=== PATIENT | female | born 1985 | race Caucasian/White ===

== ENCOUNTER 2024-08-10 21:33 | Emergency (ER) | payer BC, SELFPAY ==
[2024-08-10 21:38] VITALS: BP 112/69; PULSE 81; TEMP 36.7; O2SAT 98; BMI 35.6
--- NOTE | 2024-08-10 21:46 | CT_ITS ---
The [address] [address] Patient Name: RAKESH CHERRY MRN: [id number] date: 1985 Sex: F Assigned Patient Location: ER Current Patient Location: ED.MAIN Accession/Order Number: [id number] Exam Date: 08/10/2024 21:59 Report Date: 08/10/2024 23:28 At the request of: SHELDON MARNI Procedure: CT abdomen pelvis w con CT ABDOMEN AND PELVIS WITH CONTRAST: INDICATION: RUQ abd pain. COMPARISON: None. TECHNIQUE:Multiple thin section transaxial slices were acquired through the abdomen and pelvis with intravenous contrast. Coronal and sagittal reconstructed images were reviewed. Oral contrastWas not administered. FINDINGS: LOWER CHEST: The lower chest is unremarkable. LIVER: The liver is unremarkable. GALLBLADDER AND BILIARY SYSTEM: No obvious ductal dilation. There are no calcified stones. There is pericholecystic fluid and edema. Acute cholecystitis cannot be excluded based on this exam. SPLEEN: The spleen is unremarkable. PANCREAS: The pancreas is unremarkable. ADRENAL GLANDS: The adrenal glands are unremarkable. KIDNEYS AND URETERS: There is no hydronephrosis of the kidneys.No obstructing urologic calcifications are present. VASCULATURE: No aneurysm of the abdominal aorta. PERITONEUM/RETROPERITONEUM: No free air or free fluid is present. LYMPH NODES: No suspicious lymphadenopathy. GASTROINTESTINAL TRACT: The bowel is normal in caliber.No acute inflammation is present in the bowel.The appendix is visualized and is not inflamed. BLADDER: The urinary bladder is unremarkable. REPRODUCTIVE SYSTEM: The uterus is absent. BODY WALL: There is a small fat-containing umbilical hernia and another small fat-containing supraumbilical hernia defect. BONES: Osseous structures are unremarkable. CT/CT abdomen pelvis w con IMPRESSION: Significant pericholecystic fluid/edema without calcified stones in the gallbladder. Further evaluation with right upper quadrant sonography is recommended. Electronically authenticated by: CAROLANN NAVARRO Date: 08/10/2024 23:28
--- NOTE | 2024-08-10 21:51 | ED.ABDPAIN1 ---
HPI - Abdominal Pain General Chief Complaint: Abdominal Pain Stated Complaint: ABDOMINAL PAIN Time Seen by Provider: 08/10/24 21:35 Source: patient Mode of arrival: walk-in Limitations: no limitations History of Present Illness HPI narrative: pt complains of 3-4 weeks of upper mid and right upper abdominal pain that comes and goes. She sometimes has associated nausea and vomited once. She admits to some increased flatulence and a gassy bloated feeling. Fatty foods seem to make the pain worse. She suspects gallbladder etiology. She had a hysterectomy. Related Data Allergies Allergy/AdvReac Type Severity Reaction Status Date / Time Sulfa (Sulfonamide Allergy Intermediate Rash Verified 08/10/24 21:41 Antibiotics) PFSH PFSH Social History Little interest or pleasure in doing things: not at all Feeling down, depressed, or hopeless: not at all Exam Narrative Exam Narrative: Nurses notes and vital signs reviewed and patient is not hypoxic. afebrile General: Well-appearing and in no apparent distress. Skin: Warm, dry, no pallor noted. No rash. Eye: Pupils are equal, round and EOMI. No scleral icterus. Cardiovascular: Regular Rate and Rhythm without murmur, gallop or rub. Respiratory: No accessory muscle use or respiratory distress. Lungs are clear to auscultation, no wheezing, rales or rhonchi Chest Wall: no tenderness Back: No CVA tenderness Musculoskeletal: normal ROM GI: Abdomen is soft, non-distended. Normal bowel sounds. No masses appreciated. RUQ tenderness to palpation. No rebound, guarding, or rigidity noted. Neurological: A&O x4. No cranial nerve dysfunction observed. No truncal ataxia. Moves all extremities. Sensation intact. Psychiatric: Cooperative and interactive. Normal mood and affect. Constitutional Vital Signs, click to edit/add: Last Vital Signs Temp 98.1 F 08/10/24 21:38 Pulse 81 08/10/24 21:38 Resp 18 08/10/24 21:38 BP 112/69 08/10/24 21:38 Pulse Ox 98 08/10/24 21:38 O2 Del Method Room Air 08/10/24 21:38 Course Vital Signs Vital signs: Vital Signs Temperature 98.1 F 08/10/24 21:38 Pulse Rate 81 08/10/24 21:38 Respiratory Rate 18 08/10/24 21:38 Blood Pressure 112/69 08/10/24 21:38 Pulse Oximetry 98 08/10/24 21:38 Oxygen Delivery Method Room Air 08/10/24 21:38 Temperature 98.1 F 08/10/24 21:38 Pulse Rate 81 08/10/24 21:38 Respiratory Rate 18 08/10/24 21:38 Blood Pressure 112/69 08/10/24 21:38 Pulse Oximetry 98 08/10/24 21:38 Oxygen Delivery Method Room Air 08/10/24 21:38 MDM - Abdominal Pain MDM Narrative Medical decision making narrative: The patient had a hysterectomy so we do not need to wait for before getting CT scan of the abdomen pelvis. Peripheral IV established and blood drawn and sent for testing. She was given IV Zofran and sublingual Levsin. She was sent for CT scan of the abdomen pelvis with IV contrast. WBC 14k and CT a/p reveals biliary edema. Normally, US tech is not available between 12pm Monday and 8am Monday for GB/RUQ US but an US tech had to be called in for another scenario = so we will obtain RUQ US for further evaluation. CMP & LFTs normal. US RUQ confirms the findings noted on CT - biliary sludge, GB wall edema. She also has numerous gallstones. CBD 8mm without sign of ductal impaction. She was ordered to receive IV Zosyn I discussed the findings with the patient and let her know she needs to be evaluated by a general surgeon. We do not have general surgery coverage at [facility] until 8am on 08/12/24. Call placed to [facility] to page the content creation manager general surgeon. I spoke with Dr Bunch - GS at [facility] - and he agreed to be a budget consultant on the case - asked me to page the hospitalist to discuss transfer and admission to their facility. @ [address] Crawford - hospitalist - at [facility] and after discussion, he accepted the patient's transfer to their facility for admission. The patient lives in [place] and so was agreeable to transfer to [facility] in [place]. Lab Data Attestation: I reviewed the patient's lab results. Labs: Lab Results 08/10/24 Range/Units 21:45 WBC 14.1 H (4.0-11.0) 10^3/uL RBC 4.37 (4.20-5.40) 10^6/uL Hgb 13.5 (12.0-16.0) g/dL Hct 39.6 (36.0-48.0) % MCV 90.6 (81.0-99.0) fL MCH 30.9 (26.7-34.0) pg MCHC 34.1 (29.9-35.2) g/dL RDW 11.5 (11.0-15.0) % Plt Count 292 (150-450) 10^3/uL MPV 9.3 L (9.5-13.5) fL Neut % (Auto) 70.2 (43.0-75.0) % Lymph % (Auto) 25.5 (20.5-60.0) % [place] % (Auto) 3.2 (1.7-12.0) % Eos % (Auto) 0.6 L (0.9-7.0) % Baso % (Auto) 0.3 (0.2-2.0) % Neut # (Auto) 9.9 H (1.4-6.5) 10^3/uL Lymph # (Auto) 3.6 (1.2-3.8) 10^3/uL [place] # (Auto) 0.5 (0.3-0.8) 10^3/uL Eos # (Auto) 0.1 (0.0-0.7) 10^3/uL Baso # (Auto) 0.0 (0.0-0.1) 10^3/uL Abs Immat Gran (auto) 0.03 (0.00-0.03) 10^3/uL Imm/Tot Granulo (auto) 0.2 (0.0-0.5) % Sodium 143 (136-145) mmol/L Potassium 3.6 (3.5-5.1) mmol/L Chloride 108 H (98-107) mmol/L Carbon Dioxide 25.0 (21.0-32.0) mmol/L Anion Gap 13.6 BUN 13.0 (7.0-18.0) mg/dL Creatinine 0.93 (0.55-1.02) mg/dL Est GFR ( Amer) >60 (>=60 mL/min/1.73m^2) Est GFR (Non-Af Amer) >60 (>=60 mL/min/1.73m^2) BUN/Creatinine Ratio 14.0 Glucose 136 H (74-106) mg/dL Calcium 8.7 (8.5-10.1) mg/dL Total Bilirubin 0.3 (0.2-1.0) mg/dL AST 98 H (15-37) U/L ALT 66 H (14-59) U/L Alkaline Phosphatase 103 (46-116) U/L Total Protein 6.3 L (6.4-8.2) g/dL Albumin 3.4 (3.4-5.0) g/dL Globulin 2.9 g/dL Albumin/Globulin Ratio 1.2 Lipase 41.0 (16.0-77.0) U/L Imaging Data CT scan - abdomen: Radiologist's impression: ITS Impressions Abdomen/Pelvis CT 08/10/24 21:46 IMPRESSION: Significant pericholecystic fluid/edema without calcified stones in the gallbladder. Further evaluation with right upper quadrant sonography is recommended. Electronically authenticated by: CAROLANN NAVARRO Date: 08/10/2024 23:28 Discharge Plan Discharge Chief Complaint: Abdominal Pain Clinical Impression: Acute calculous cholecystitis, Biliary colic Patient Disposition: [facility] Time of Disposition Decision: 00:27 Discharge Location: [facility]
[2024-08-10] MEDS: ONDANSETRON PF 4 MG/2 ML VIAL IV (21:55)
[2024-08-10] MEDS: HYOSCYAMINE SULFATE 0.125 MG TAB.SUBL SL (21:55)
[2024-08-10 21:58] LABS: Basophils Percent Auto 0.3 % (0.2-2.0); Eosinophils Absolute Auto 0.1 10^3/uL (0.0-0.7); Eosinophils Percent Auto 0.6 % (0.9-7.0); Hematocrit 39.6 % (36.0-48.0); Hemoglobin 13.5 g/dL (12.0-16.0); Immature Granulocytes Abs Auto 0.03 10^3/uL (0.00-0.03); Immature Granulocytes Pct Auto 0.2 % (0.0-0.5); Lymphocytes Absolute Auto 3.6 10^3/uL (1.2-3.8); Lymphocytes Percent Auto 25.5 % (20.5-60.0); Mean Corpuscular HGB Conc 34.1 g/dL (29.9-35.2); Mean Corpuscular Hemoglobin 30.9 pg (26.7-34.0); Mean Corpuscular Volume 90.6 fL (81.0-99.0); Mean Platelet Volume 9.3 fL (9.5-13.5); Monocytes Absolute Auto 0.5 10^3/uL (0.3-0.8); Monocytes Percent Auto 3.2 % (1.7-12.0); Neutrophils Absolute Auto 9.9 10^3/uL (1.4-6.5); Neutrophils Percent Auto 70.2 % (43.0-75.0); Platelet Count 292 10^3/uL (150-450); Red Blood Count 4.37 10^6/uL (4.20-5.40); Red Cell Distribution Width 11.5 % (11.0-15.0); White Blood Count 14.1 10^3/uL (4.0-11.0)
[2024-08-10 22:12] LABS: Alanine Aminotransferase 66 U/L (14-59); Albumin Globulin Ratio 1.2; Albumin Level 3.4 g/dL (3.4-5.0); Alkaline Phosphatase 103 U/L (46-116); Anion Gap 13.6; Aspartate Amino Transferase 98 U/L (15-37); Bilirubin Total 0.3 mg/dL (0.2-1.0); Calcium 8.7 mg/dL (8.5-10.1); Chloride 108 mmol/L (98-107); Estimated GFR (African America >60 (>=60 mL/min/1.73m^2); Estimated GFR (Non-African Ame >60 (>=60 mL/min/1.73m^2); Globulin 2.9 g/dL; Glucose 136 mg/dL (74-106); Potassium 3.6 mmol/L (3.5-5.1); Sodium 143 mmol/L (136-145); Total Protein 6.3 g/dL (6.4-8.2)
--- NOTE | 2024-08-10 23:33 | US_ITS ---
The [address] [address] Patient Name: RAKESH CHERRY MRN: [id number] date: 1985 Sex: F Assigned Patient Location: ER Current Patient Location: .[facility] Accession/Order Number: [id number] Exam Date: 08/10/2024 23:59 Report Date: 08/11/2024 02:24 At the request of: SHELDON MARIN Procedure: US right upper quadrant EXAM: US right upper quadrant HISTORY: 38 years old Female presenting with possible cholecystitis on CT scan, right upper quadrant pain. TECHNIQUE: Ultrasound of the right upper quadrant abdomen. COMPARISON: CT abdomen dated 08/10/2024 FINDINGS: Liver: Normal in size, contour and echogenicity. No intrahepatic biliary ductal dilatation. Gallbladder: There is cholelithiasis with abnormal gallbladder wall thickening and significant pericholecystic edema concerning for cholecystitis. The patient did not demonstrate a positive sonographic Martin's sign. Common bile duct: Normal in diameter, measuring 2.3 mm. Right kidney: Normal in size and echogenicity measuring 11.5 x 4.9 x 6.0 cm. No hydronephrosis or renal calculus. Miscellaneous:There is no free fluid in the right upper quadrant. The pancreas is obscured from bowel gas interference. US/US right upper quadrant IMPRESSION: Cholelithiasis with abnormal gallbladder wall thickening and pericholecystic edema concerning for acute cholecystitis. Electronically authenticated by: CAROLANN NAVARRO Date: 08/11/2024 02:24
[2024-08-11] MEDS: ONDANSETRON PF 4 MG/2 ML VIAL IV (00:54)
[2024-08-11] MEDS: HYDROMORPHONE HCL 1 MG/ML CARTRIDGE IVP (00:54)
[2024-08-11] MEDS: PIPERACILLIN SODIUM/TAZOBACTAM 3.375 GM in 0.9 % SODIUM CHLORIDE 50 ML IV (01:29)
== END 2024-08-11 02:36 | disposition short-term general hospital (02) ==
PROVIDERS: Emergency Provider Emergency Medicine; PCP Family Medicine
DX: K80.42 Calculus of bile duct with acute cholecystitis without obstruction (principal); Z90.710 Acquired absence of both cervix and uterus
CPT/HCPCS: 36415; 74177; 76705; 80053; 83690; 85025; 96365; 96375; 96376; 99285; J1171; J2405; J2543; Q9967

== ENCOUNTER 2025-04-09 07:15 | Outpatient (OUT) | payer BC, SELFPAY ==
--- OUTSIDE RECORDS SUMMARY | 2025-04-09 07:21 | XMS_ITS | CCD ---
Author Organization [facility] Care Team Providers Care Station Supervisor Name Role Phone KIMBERLEE ., DR MCDONALD Admitting Unavailable HOY ., DR MCDONALD Attending Unavailable HOY ., DR MCDONALD Primary Care Unavailable HOY ., DR MCDONALD Admitting Unavailable HOY ., DR MCDONALD Attending Unavailable HOY ., DR MCDONALD Primary Care Unavailable CINDYY ., DR MCDONALD Consulting Unavailable MD Harry Mohan Primary Care Provider [phone] MD Jeevan Hagan Jr Emergency Provider MD Harry Mohan Attending Provider [phone] DO Jeremiah Nunez Emergency Provider Unava MD Miguel Rahman Other Provider MD Miguel Barba Attending Provider DO Alysa Jiménez Attending Provider Miguel Barba Unavailable MD Harry Mohan Primary Care Provider [phone] MD Harry Mohan Attending Provider [phone] JAYCE Negron Attending Provider Harry Mohan MD Primary Care Provider [phone] Alysa Jiménez DO Unavailable Unavailable Primary Care Provider UnavailPARVEZ Barillas Admitting Unavailable PARVEZ VASQUEZ Attending Unavailable Unavailable Primary Care Provider Unavailtana e ALYSA JIMÉNEZ Attending Unavailable CHANDAN MICHAELS Attending Unavailable FAITH MARTINEZ Referring Unavailable JEREMIAH FORD Admitting Unavailable MATTHEW JOHNS Attending Unavailable Adelaide Negron Admitting Unavailable Adelaide Negron Attending Unavailable Harry Mohan Primary Care Unavailable Emil Noe Consulting Unavailable Candice Velasquez Admitting Unavailable Ed Whittington Attending Unavailable Harry Mohan Primary Care Unavailable Chandan Bunch Consulting Unavailable Parvez Kaey Unavailable Daromar, Obaydah M Admitting Unavailable Daromar, Obaydah M Attending Unavailable Chris Marshall Consulting Unavailable Harry Mohan Primary Care Unavailable Ozzie Acosta Consulting Unavailable Asaad, Imad Consulting Unavailable Gloria Albright Consulting Unavailable JOSE ASTUDILLO Attending Unavailable HARRY MOHAN Referring Unavailable Allergies Allergy Classification Reported Allergen(s) Allergy Type Date of Onset Reaction(s) Facility (13 sources) Sulfonamides (Antibiotic); Translations: [SULFA (SULFONAMIDE ANTIBIOTICS)] Allergy to substance 3 [facility] (5 sources) Sulfacetamide Drug Allergy 4 [facility] (5 sources) Sulfanilamide Allergy to substance 3 [facility] (1 source) ALLERGIES NOT ON FILE; Translations: [ALLERGIES NOT ON FILE] Propensity to adverse reactions (disorder) [facility] (1 source) Sulfacetamide Drug Allergy 4 [facility] Medications Current Medications Medication Drug Class(es) Dates Sig (Normalized) Sig (Original) Acetaminophen (2 sources) Start: 08-23-2024 take 1 tablet by mouth every four hours as needed acetaminophen (Tylenol) tablet 650 mg acetaminophen 325 mg / HYDROcodone bitartrate 5 mg oral tablet (4 sources) Opioid Agonist Start: 09-06-2023 take 1 tablet by mouth every six hours Hydrocodone-Acetami nophen Active 1 TAB PO Q6H 12 September 06, 2023 acetaminophen 325 mg / oxyCODONE hydrochloride 5 mg oral tablet (1 source) Opioid Agonist Start: 08-23-2024 take 1 tablet by mouth every four hours as needed 1 tablet, oral, Every 4 hours PRN, pain moderate (4-6), second line, Starting on Mon08/23/24 at 1458, Recovery (only), When able to take oral medications., If ordered PRN for pain, nurse is permitted to administer this medication for higher pain scores based on patient preference? Yes albuterol 0.83 mg/ml inhalation solution (6 sources) beta2-Adrenergic Agonist Start: 08-23-2024 2.5 mg, nebulization, Once as needed, wheezing, Starting on Mon08/23/24 at 1458, For 1 dose, Recovery (only) Start: 08-23-2023 Albuterol Sulf ate Active 2 INH INHALATION Q4H August 23, 2023 12:00am calcium chloride 0.0014 meq/ml / potassium chloride 0.004 meq/ml / sodium chloride 0.103 meq/ml / sodium lactate 0.028 meq/ml injectable solution (1 source) Start: 08-23-2024 End: 08-24-2024 take 100 mL intravenously every hour 100 mL/hr, intravenous, Continuous, Starting on Mon08/23/24 at 1515, For 1 day, Recovery (only) diphenhydrAMINE (2 sources) Histamine-1 Receptor Antagonist Start: 08-23-2024 12.5 mg, intravenous, Once as needed, itching, allergic reaction, Starting on Mon08/23/24 at 1458, For 1 dose, Recovery (only) 1 ml fentaNYL 0.05 mg/ml injection (1 source) Opioid Agonist Start: 08-23-2024 50 mcg, intravenous, Every 5 min PRN, pain moderate (4-6), first line, Starting on Mon08/23/24 at 1458, Recovery (only), Max total of 200 micrograms regardless of dose., If ordered PRN for pain, nurse is permitted to administer this medication for higher pain scores based on patient preference? Yes 1 ml hydrALAZINE hydrochloride 20 mg/ml injection (1 source) Arteriolar Vasodilator Start: 08-23-2024 5 mg, intravenous, Administer over 2 Minutes, Every 30 min PRN, systolic blood pressure greater than 180 mmHg and heart rate less than 60 BPM, Starting on Mon08/23/24 at 1458, For 2 doses, Recovery (only) 0.5 ml HYDROmorphone hydrochloride 1 mg/ml prefilled syringe (3 sources) Opioid Agonist Start: 08-23-2024 0.5 mg, intravenous, Every 5 min PRN, pain severe (7-10), first line, Starting on Mon08/23/24 at 1458, Recovery (only), Max total of 4 mg regardless of dose. Start: 08-23-2024 0.2 mg, intrav enous, Every 5 min PRN, pain moderate (4-6), first line, Starting on Mon08/23/24 at 1458, Recovery (only), Max total of 4 mg regardless of dose. ibuprofen 600 mg oral tablet (12 sources) Nonsteroidal Anti-inflammatory Drug Start: 09-06-2023 Ibuprofen Active 600 MG PO Every 6 hours September 06, 2023 12:00am do not exceed 4 doses in a 24 hour period Start: 07-18-2023 take 600 mg by mouth every eight hours Ibuprofen Active 600 MG PO Q8H July 18, 2023 12:00am labetalol hydrochloride 5 mg/ml injectable solution (2 sources) beta-Adrenergic Jonas Start: 08-23-2024 5 mg, intravenous, Administer over 1 Minutes, Once as needed, systolic blood pressure greater than 180 mmHg, dystolic blood pressure greater than 100 mmHg and heart rate greater than 60 BPM, Starting on Mon08/23/24 at 1458, For 1 dose, Recovery (only) melatonin 3 mg oral tablet (1 source) Start: 08-23-2024 Metoclopramide (1 source) Dopamine-2 Receptor Antagonist Start: 08-23-2024 take 1 tablet by mouth every six hours as needed metoclopramide (Reglan) tablet 10 mg 1 ml morphine sulfate 4 mg/ml prefilled syringe (2 sources) Opioid Agonist Start: 08-23-2024 take 4 mg intravenously every four hours as needed Start: 08-23-2024 take 2 mg intravenously every four hours as needed 2 ml ondansetron 2 mg/ml injection (2 sources) Serotonin-3 Receptor Antagonist Start: 08-23-2024 4 mg, intravenous, Once as needed, nausea/vomiting, first line, Starting on Mon08/23/24 at 1458, For 1 dose, Recovery (only), When administering via IV Push, administer over 3-5 minutes. ondansetron ODT (Zofran-ODT) disintegrating tablet 4 mg (1 source) Start: 08-23-2024 take 1 tablet by mouth every eight hours as needed ondansetron ODT (Zofran-ODT) disintegrating tablet 4 mg oxyCODONE hydrochloride 5 mg oral tablet (2 sources) Opioid Agonist Start: 08-23-2024 take 1 tablet by mouth every four hours as needed 5 mg, oral, Every 4 hours PRN, pain mild (1-3), first line, Starting on Mon08/23/24 at 1458, Recovery (only), When able to take oral medications., If ordered PRN for pain, nurse is permitted to administer this medication for higher pain scores based on patient preference? Yes oxygen (O2) therapy (2 sources) Start: 08-23-2024 inhalation, Continuous PRN - O2/gases, other, Starting on Mon08/23/24 at 1458, Recovery (only), Device: Nasal Cannula, Rate in liters per minute: Other, Custom Value: 1-6 LPM, Keep O2 Sat Above: 92% pantoprazole (1 source) Proton Pump Inhibitor Start: 08-23-2024 pantoprazole (ProtoNix) EC tablet 40 mg polyethylene glycol 3350 [id number] mg powder for oral solution (1 source) Osmotic Laxative Start: 08-23-2024 take 17 g by mouth every twenty-four hours as needed promethazine (Phenergan) 6.25 mg in sodium chloride 0.9% 50 mL IV (1 source) Start: 08-23-2024 6.25 mg, intravenous, Administer over 15 Minutes, Once as needed, Nausea/vomiting, second line, Starting on Mon08/23/24 at 1458, For 1 dose, Recovery (only) Completed/Discontinued Medications Medication Drug Class(es) Dates Sig (Normalized) Sig (Original) amoxicillin 875 mg / clavulanate 125 mg oral tablet (9 sources) Penicillin-class Antibacterial Start: 07-18-2023 End: 07-18-2023 Amoxicillin-Pot Clavulanate Discontinued TAB TABLET July 18, 2023 12:00am July 18, 2023 4:02am benzonatate 100 mg oral capsule (9 sources) Non-narcotic Antitussive Start: 07-18-2023 End: 07-26-2023 take 100 mg by mouth three times daily Benzonatate Discontinued 100 MG PO Three times daily July 18, 2023 12:00am July 26, 2023 4:53pm betamethasone 0.5 mg/ml topical cream (14 sources) Corticosteroid Start: 07-18-2023 End: 07-18-2023 Betamethasone Dipropionate Discontinued APPLIC TOPICAL July 18, 2023 12:00am July 18, 2023 4:02am Start: 06-30-2023 betamethasone dipropionate 0.05 % cream Indications: Other atopic dermatitis Apply to affected areas twice a day when flared 45 g 11 06/30/2023 Active cefdinir 300 mg oral capsule (6 sources) Cephalosporin Antibacterial Start: 07-26-2023 End: 08-23-2023 take 600 mg by mouth once daily Cefdinir Discontinued 600 MG PO Daily July 26, 2023 12:00am August 23, 2023 9:08am levoFLOXacin 750 mg oral tablet (9 sources) Quinolone Antimicrobial Start: 07-18-2023 End: 08-23-2023 take 750 mg by mouth once daily Levofloxacin Discontinued 750 MG PO Daily 7 July 18, 2023 12:00am August 23, 2023 9:08am 1000 ml sodium chloride 9 mg/ml injection (1 source) Start: 08-23-2024 End: 08-23-2024 take 100 mL intravenously every hour 100 mL/hr, intravenous, Continuous, Starting on Mon08/23/24 at 0100, For 10 hours valACYclovir 1000 mg oral tablet (14 sources) Herpesvirus Nucleoside Analog DNA Polymerase Inhibitor, Herpes Simplex Virus Nucleoside Analog DNA Polymerase Inhibitor, Herpes Zoster Virus Nucleoside Analog DNA Polymerase Inhibitor Start: 07-18-2023 End: 07-18-2023 Valacyclovir Discontinued MG TABLET July 18, 2023 12:00am July 18, 2023 4:02am Start: 06-30-2023 valACYclovir ( Valtrex) 1 g tablet Indications: Herpesviral vesicular dermatitis Take 2 tablets twice a day x 1 day at first start of outbreak 4 tablet 5 06/30/2023 Active Problems Active Problems Problem Classification Problem Date Documented Date Episodic/Chronic Abdominal hernia (4 sources) Umbilical hernia; Translations: [Umbilical hernia without obstruction or gangrene] Onset: 08-26-2024 08-26-2024 Episodic Abdominal pain (13 sources) Nonspecific abdominal pain; Translations: [Unspecified abdominal pain] Onset: 08-23-2024 07-18-2023 Episodic Biliary tract disease (8 sources) Obstruction of biliary tree; Translations: [Obstruction of bile duct] Onset: 08-21-2024 4 Chronic Biliary tract disease (6 sources) Calculus of gallbladder and bile duct with acute and chronic cholecystitis; Translations: [Calculus of gallbladder and bile duct with acute and chronic cholecystitis without obstruction] Onset: 08-11-2024 08-26-2024 Episodic Chronic obstructive pulmonary disease and bronchiectasis (6 sources) Bronchitis; Translations: [Bronchitis, not specified as acute or chronic] 08-03-2023 Episodic Nonspecific chest pain (6 sources) Chest pain; Translations: [Chest pain, unspecified] 07-26-2023 Episodic Other liver diseases (2 sources) Enzyme level - finding; Translations: [Transaminitis] Onset: 08-23-2024 08-23-2024 Episodic Other liver diseases (1 source) Abnormal levels of other serum enzymes; Translations: [Abnormal levels of other serum enzymes] Onset: 08-21-2024 Episodic Other liver diseases (1 source) Unspecified jaundice; Translations: [Unspecified jaundice] Onset: 08-21-2024 Episodic Other nervous system disorders (3 sources) Acute postoperative pain; Translations: [Other acute postprocedural pain] 09-06-2023 Episodic Other nervous system disorders (1 source) Other acute postprocedural pain; Translations: [Other acute postprocedural pain] Onset: 08-11-2024 Episodic Other non-traumatic joint disorders (2 sources) Pain in elbow; Translations: [Pain in left elbow] 10-27-2023 Episodic Other non-traumatic joint disorders (2 sources) Effusion of joint of left elbow; Translations: [Effusion, left elbow] 10-27-2023 Episodic Other non-traumatic joint disorders (1 source) Effusion, left elbow; Translations: [Effusion of joint, upper arm] 10-27-2023 Episodic Other screening for suspected conditions (not mental disorders or infectious disease) (1 source) Tomography - chest abnormal; Translations: [Abnormal findings on diagnostic imaging of other specified body structures] Chronic Other screening for suspected conditions (not mental disorders or infectious disease) (2 sources) Other specified abnormal findings of blood chemistry; Translations: [Other specified abnormal findings of blood chemistry] Onset: 01-22-2025 Episodic Pleurisy; pneumothorax; pulmonary collapse (6 sources) Pleurisy; Translations: [Pleurisy] 08-03-2023 Episodic Pneumonia (except that caused by tuberculosis or sexually transmitted disease) (9 sources) Pneumonia; Translations: [Pneumonia, unspecified organism] 07-18-2023 Episodic Residual codes; unclassified (1 source) Acquired absence of other specified parts of digestive tract; Translations: [Acquired absence of other specified parts of digestive tract] Onset: 08-21-2024 Episodic Unclassified (1 source) Pain in left elbow; Translations: [Pain in left elbow] Onset: 10-27-2023 Past or Other Problems Problem Classification Problem Date Documented Da te Episodic/Chronic Unclassified (1 source) Cholodocolithiasis Onset: 08-22-2024 Results Test Name Value Interpretation Reference Range Facility Office Visiton 01-22-2025 Follow-up visit [id number] Janice Cherry 1985 F Date Provider Department Center 01/22/2025 Demetrio-JOSE ASTUDILLO [facility] Family History Problem Relation Age of Onset Thyroid disease Mother Multiple sclerosis Brother Family Status - Relation Status Age at Mother Unknown Brother Level of Service:80396 [place] OFFICE/OUTPATIENT NEW MODERATE MDM 45 MINUTES (GC) 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 [Other] Abdominal Pain [754839] - RUQ Normal [facility] CBC W Auto Differential pane l (Bld)on 08-24-2024 Basophils (Bld) [#/Vol] 0.06 10*3/uL [facility] Basophils/100 WBC (Bld) 0.5 % 0.0 - 2.0 % [facility] Eosinophils (Bld) [#/Vol] 0.42 10*3/uL [facility] Eosinophils/100 WBC (Bld) 3.4 % 0.0 - 6.0 % [facility] Erythrocyte distribution width (RBC) [Ratio] 12 % 11.5 - 14.5 % [facility] Hematocrit (Bld) [Volume fraction] 39.4 % 36.0 - 46.0 % [facility] Hemoglobin (Bld) [Mass/Vol] 12.7 g/dL 12.0 - 16.0 g/dL [facility] Immature granulocytes (Bld) [#/Vol] 0.03 10*3/uL [facility] Immature granulocytes/100 WBC (Bld) 0.2 % 0.0 - 0.9 % [facility] Comment on above: Immature Granulocyte Count (IG) includes promyelocytes, myelocytes and metamyelocytes but does not include bands. Percent differential counts (%) should be interpreted in the context of the absolute cell counts (cells/UL). Interpretation and review of laboratory results Abnormal [facility] Lymphocytes (Bld) [#/Vol] 2.94 10*3/uL [facility] Lymphocytes/100 WBC (Bld) 23.6 % 13.0 - 44.0 % [facility] MCH (RBC) [Entitic mass] 29.5 pg 26.0 - 34.0 pg [facility] MCHC (RBC) [Mass/Vol] 32.2 g/dL 32.0 - 36.0 g/dL [facility] MCV (RBC) [Entitic vol] 92 fL 80 - 100 fL [facility] Monocytes (Bld) [#/Vol] 0.74 10*3/uL [facility] Monocytes/100 WBC (Bld) 5.9 % 2.0 - 10.0 % [facility] Neutrophils (Bld) [#/Vol] 8.25 10*3/uL High [facility] Comment on above: Percent differential counts (%) should be interpreted in the context of the absolute cell counts (cells/uL). Neutrophils/100 WBC (Bld) 66.4 % 40.0 - 80.0 % [facility] Nucleated RBC/100 WBC (Bld) [Ratio] 0 % [facility] Platelets (Bld) [#/Vol] 323 10*3/uL [facility] RBC (Bld) [#/Vol] 4.3 10*6/uL [facility] WBC (Bld) [#/Vol] 12.4 10*3/uL [facility] Basophils (Bld) [#/Vol] 0.06 x10*3/uL Normal 0.00-0.10 [facility] Comment on above: Performed By: #### 5 7021-8 #### BALWINDER SINGH ([id number]) [facility] [place] [address] [place] [address] Basophils/100 WBC (Bld) 0.5 % Normal 0.0-2.0 [facility] Comment on above: Performed By: #### 5 7021-8 #### BALWINDER SINGH ([id number]) [facility] ([facility] [address] [place] [address] Eosinophils (Bld) [#/Vol] 0.42 x10*3/uL Normal 0.00-0.70 [facility] Comment on above: Performed By: #### 5 7021-8 #### BALWINDER SINGH ([id number]) [facility] ([facility] [place] [address] [place] [address] Eosinophils/100 WBC (Bld) 3.4 % Normal 0.0-6.0 [facility] Comment on above: Performed By: #### 5 7021-8 #### BALWINDER SINGH ([id number]) [facility] ([facility] [place] [place] [id number] [place] [address] Erythrocyte distribution width (RBC) [Ratio] 12.0 % Normal 11.5-14.5 [facility] Comment on above: Performed By: #### 5 7021-8 #### BALWINDER SINGH ([id number]) [facility] ([facility] [place] [address] [place] [address] Hematocrit (Bld) [Volume fraction] 39.4 % Normal 36.0-46.0 [facility] Comment on above: Performed By: #### 5 7021-8 #### BALWINDER SINGH ([id number]) [facility] ([facility] [place] [address] [place] [address] Hemoglobin (Bld) [Mass/Vol] 12.7 g/dL Normal 12.0-16.0 [facility] Comment on above: Performed By: #### 5 7021-8 #### BALWINDER SINGH (45935) [facility] ([facility] [place] [place] [address] [place] [address] Immature granulocytes (Bld) [#/Vol] 0.03 x10*3/uL Normal 0.00-0.70 [facility] Comment on above: Performed By: #### 5 7021-8 #### BALWINDER SINGH ([id number]) [facility] ([facility] [address] [place] [address] Immature granulocytes/100 WBC (Bld) 0.2 % Normal 0.0-0.9 [facility] Comment on above: Result Comment: Caryl ture Granulocyte Count (IG) includes promyelocytes, myelocytes and metamyelocytes but does not include bands. Percent differential counts (%) should be interpreted in the context of the absolute cell counts (cells/UL). Performed By: #### 5 7021-8 #### BALWINDER SINGH ([id number]) [facility] ([facility] [place] [place] [id number] [place] [address] Lymphocytes (Bld) [#/Vol] 2.94 x10*3/uL Normal 1.20-4.80 [facility] Comment on above: Performed By: #### 5 7021-8 #### BALWINDER SINGH ([id number]) [facility] [place] [place] [place] [address] [place] [address] Lymphocytes/100 WBC (Bld) 23.6 % Normal 13.0-44.0 [facility] Comment on above: Performed By: #### 5 7021-8 #### BALWINDER SINGH ([id number]) [facility] ([facility] [place] [place] [address] [place] [address] MCH (RBC) [Entitic mass] 29.5 pg Normal 26.0-34.0 [facility] Comment on above: Performed By: #### 5 7021-8 #### BALWINDER SINGH ([id number]) [facility] ([facility] [place] [place] [address] [place] [address] MCHC (RBC) [Mass/Vol] 32.2 g/dL Normal 32.0-36.0 [facility] Comment on above: Performed By: #### 5 7021-8 #### BALWINDER SINGH ([id number]) [facility] ([facility] [place] [address] [place] [address] MCV (RBC) [Entitic vol] 92 fL Normal 80-100 [facility] Comment on above: Performed By: #### 5 7021-8 #### BALWINDER SINGH ([id number]) [facility] ([facility] [place] [address] [place] [address] Monocytes (Bld) [#/Vol] 0.74 x10*3/uL Normal 0.10-1.00 [facility] Comment on above: Performed By: #### 5 7021-8 #### BALWINDER SINGH ([id number]) [facility] ([facility] [place] [address] [place] [address] Monocytes/100 WBC (Bld) 5.9 % Normal 2.0-10.0 [facility] Comment on above: Performed By: #### 5 7021-8 #### BALWINDER SINGH ([id number]) [facility] ([facility] [place] [address] [place] [address] Neutrophils (Bld) [#/Vol] 8.25 x10*3/uL High 1.20-7.70 [facility] Comment on above: Result Comment: Perc ent differential counts (%) should be interpreted in the context of the absolute cell counts (cells/uL). Performed By: #### 5 7021-8 #### BALWINDER SINGH (74093) [facility] ([facility] [place] [address] [place] [address] Neutrophils/100 WBC (Bld) 66.4 % Normal 40.0-80.0 [facility] Comment on above: Performed By: #### 5 7021-8 #### BALWINDER SINGH ([id number]) [facility] ([facility] [place] [place] [address] [place] [address] Nucleated RBC/100 WBC (Bld) [Ratio] 0.0 /100 WBCs Normal 0.0-0.0 [facility] Comment on above: Performed By: #### 5 7021-8 #### BALWINDER SINGH ([id number]) [facility] ([facility] [place] [place] [address] [place] [address] Platelets (Bld) [#/Vol] 323 x10*3/uL Normal 150-450 [facility] Comment on above: Performed By: #### 5 7021-8 #### BALWINDER SINGH ([id number]) [facility] ([facility] [place] [place] [address] [place] [address] RBC (Bld) [#/Vol] 4.30 x10*6/uL Normal 4.00-5.20 [facility] Comment on above: Performed By: #### 5 7021-8 #### BALWINDER SINGH ([id number]) [facility] ([facility] [place] [place] [address] [place] [address] WBC (Bld) [#/Vol] 12.4 x10*3/uL High 4.4-11.3 [facility] Comment on above: Performed By: #### 5 7021-8 #### BALWINDER SINGH ([id number]) [facility] ([facility] [place] [place] [address] [place] [address] Comprehensive metabolic 2000 panelon 08-24-2024 Albumin BCP dye [Mass/Vol] 3.9 g/dL 3.4 - 5.0 g/dL [facility] ALP [Catalytic activity/Vol] 167 U/L High 33 - 110 U/L [facility] ALT With P-5'-P [Catalytic activity/Vol] 140 U/L High 7 - 45 U/L [facility] Comment on above: Patients treated wit h Sulfasalazine may generate falsely decreased results for ALT. Anion gap [Moles/Vol] 14 mmol/L 10 - 2 0 mmol/L [facility] AST With P-5'-P [Catalytic activity/Vol] 24 U/L 9 - 39 U/L [facility] Bilirubin [Mass/Vol] 0.8 mg/dL 0.0 - 1 .2 mg/dL [facility] Calcium [Mass/Vol] 9.3 mg/dL 8.6 - 10. 3 mg/dL [facility] Chloride [Moles/Vol] 104 mmol/L 98 - 10 7 mmol/L [facility] [facility] CO2 [Moles/Vol] 25 mmol/L 21 - 32 mmol/L [facility] Creatinine [Mass/Vol] 0.63 mg/dL 0.50 - 1.05 mg/dL [facility] eGFR - PINF [facility] Comment on above: Calculations of luis miguel mated GFR are performed using the 2020 CKD-EPI Study Refit equation without the race variable for the IDMS-Traceable creatinine methods. https://jasn.asnjournals.org/content/early//ASN.78586 35874 Glucose [Mass/Vol] 90 mg/dL 74 - 99 mg/dL [facility] Interpretation and review of laboratory results Abnormal [facility] Potassium [Moles/Vol] 4.2 mmol/L 3.5 - 5.3 mmol/L [facility] Protein [Mass/Vol] 6.4 g/dL 6.4 - 8.2 g/dL [facility] Sodium [Moles/Vol] 139 mmol/L 136 - 145 mmol/L [facility] Urea nitrogen [Mass/Vol] 7 mg/dL 6 - 23 mg/dL [facility] Albumin BCP dye [Mass/Vol] 3.9 g/dL Normal 3.4-5.0 [facility] Comment on above: Performed By: #### 2 4323-8 #### BALWINDER SINGH ([id number]) [facility] [place] [address] [place] [address] ALP [Catalytic activity/Vol] 167 U/L High 33-110 [facility] Comment on above: Performed By: #### 2 4323-8 #### BALWINDER SINGH (38024) [facility] ([facility] [address] [place] [address] ALT With P-5'-P [Catalytic activity/Vol] 140 U/L High 7-45 [facility] Comment on above: Result Comment: Meena ents treated with Sulfasalazine may generate falsely decreased results for ALT. Performed By: #### 2 4323-8 #### BALWINDER SINGH ([id number]) [facility] [place] [address] [facility] [place] [address] Anion gap [Moles/Vol] 14 mmol/L Normal 10-20 [facility] Comment on above: Performed By: #### 2 4323-8 #### BALWINDER SINGH (79815) [facility] [place] [address] [facility] [address] AST With P-5'-P [Catalytic activity/Vol] 24 U/L Normal 9-39 [facility] Comment on above: Performed By: #### 2 4323-8 #### BALWINDER SINGH (11625) [facility] [place] [address] [place] [address] Bilirubin [Mass/Vol] 0.8 mg/dL Normal 0.0-1.2 [facility] Comment on above: Performed By: #### 2 4323-8 #### BALWINDER SINGH (54512) [facility] [place] [address] [place] [address] Calcium [Mass/Vol] 9.3 mg/dL Normal 8.6-10.3 [facility] Comment on above: Performed By: #### 2 4323-8 #### BALWINDER SINGH (55361) [facility] [place] [address] [place] [address] Chloride [Moles/Vol] 104 mmol/L Normal 98-107 [facility] Comment on above: Performed By: #### 2 4323-8 #### BALWINDER SINGH (54003) [facility] [place] [address] [place] [address] CO2 [Moles/Vol] 25 mmol/L Normal 21-[address] [facility] Comment on above: Performed By: #### 2 4323-8 #### BALWINDER SINGH (90002) [facility] [place] [address] [place] [address] Creatinine [Mass/Vol] 0.63 mg/dL Normal 0.50-1.05 [facility] Comment on above: Performed By: #### 2 4323-8 #### BALWINDER SINGH (50994) [facility] ([facility] [id number] [place] [address] GFR/1.73 sq M.predicted MDRD (S/P/Bld) [Vol rate/Area] mL/min/{1.73_m2} Normal >60 [facility] Comment on above: Result Comment: Calc ulations of estimated GFR are performed using the 2020 CKD-EPI Study Refit equation without the race variable for the IDMS-Traceable creatinine methods. https://jasn.asnjournals.org/content/early//ASN.62576 70642 Performed By: #### 2 4323-8 #### BALWINDER SINGH (46831) [facility] ([facility] [id number] [place] [address] Glucose [Mass/Vol] 90 mg/dL Normal 74-99 [facility] Comment on above: Performed By: #### 2 4323-8 #### BALWINDER SINGH (49364) [facility] ([facility] [id number] [place] [address] Potassium [Moles/Vol] 4.2 mmol/L Normal 3.5-5.3 [facility] Comment on above: Performed By: #### 2 4323-8 #### BALWINDER SINGH (75486) [facility] [place] [address] [place] [address] Protein [Mass/Vol] 6.4 g/dL Normal 6.4-8.2 [facility] Comment on above: Performed By: #### 2 4323-8 #### BALWINDER SINGH (14311) [facility] [place] [address] [place] [address] Sodium [Moles/Vol] 139 mmol/L Normal 136-145 [facility] Comment on above: Performed By: #### 2 4323-8 #### BALWINDER SINGH (26402) [facility] [place] [address] [place] [address] Urea nitrogen [Mass/Vol] 7 mg/dL Normal 6-23 [facility] Comment on above: Performed By: #### 2 4323-8 #### BALWINDER SINGH (68460) [facility] [place] [address] [place] [address] ENDOSCOPIC ULTRASOUND (UPPER )on 08-24-2024 ENDOSCOPIC ULTRASOUND (UPPER) Table formatting from the original result was not included. Impression EGD: Endoscopic views of the esophagus and duodenum appeared normal. Mild abnormal mucosa in the antrum, consistent with gastritis; performed cold forceps biopsy for evaluation of h. Pylori EUS: The parenchyma of the liver appeared normal. The parenchyma was visualized in the left lobe and right lobe of the liver. The hepatic ducts appeared normal. The gallbladder was not visualized. The parenchyma was visualized in the entire pancreas and appeared to have a normal salt and pepper appearance. The pancreatic duct appeared normal. The bile duct appeared normal. There was no evidence of choledocholithiasis Findings Endoscopic views of the esophagus and duodenum appeared normal. Mild, patchy abnormal mucosa in the antrum, consistent with gastritis; performed cold forceps biopsy The parenchyma of the liver appeared normal. The parenchyma was visualized in the left lobe and right lobe of the liver. The hepatic ducts appeared normal. The gallbladder was not visualized. The parenchyma was visualized in the entire pancreas and appeared to have a normal salt and pepper appearance. The pancreatic duct appeared normal and measured 2 mm at the head, 1 mm at the body and 1 mm at the tail. The bile duct appeared normal and had no dilation, stricture, stones, plugs, sludge or wall thickening. The bile duct measured 3 mm at the distal end, 4 mm at the middle and 4 mm at the proximal end. Recommendation No etiology for abdominal pain identfied No evidence of biliary stones Explore hepatocellular etiology of elevated LFTs Indication Biliary obstruction ([facility]) Staff Staff Role Mau Kruse MD Proceduralist Medications See Anesthesia Record. Preprocedure A history and physical has been performed, and patient medication allergies have been reviewed. The patient's tolerance of previous anesthesia has been reviewed. The risks and benefits of the procedure and the sedation options and risks were discussed with the patient. All questions were answered and informed consent obtained. Details of the Procedure The patient underwent monitored anesthesia care, which was administered by an anesthesia professional. The patient's blood pressure, heart rate, level of consciousness, oxygen, respirations, ECG and ETCO2 were monitored throughout the procedure. The linear scope was introduced through the mouth and advanced to the second part of the duodenum. The patient experienced no blood loss. The procedure was not difficult. The patient tolerated the procedure well. There were no apparent adverse events. Events Procedure Events Event Event Time ENDO SCOPE IN TIME 08/23/2024 2:44 PM ENDO SCOPE OUT TIME 08/23/2024 2:48 PM ENDO SCOPE IN TIME 08/23/2024 2:49 PM ENDO SCOPE OUT TIME 08/23/2024 2:55 PM Specimens ID Type Source Tests Collected by Time 1 : random stomach r/o hpylori Tissue STOMACH ANTRUM BIOPSY SURGICAL PATHOLOGY EXAM Senthil Isha 08/23/2024 1446 Procedure Location [address] [address] Referring Provider Mau Kruse MD Procedure Provider Mau Kruse MD [facility] Endoscopic Ultrasound (Upper )on 08-24-2024 Table formatting fro m the original result was not included. Impression EGD: Endoscopic views of the esophagus and duodenum appeared normal. Mild abnormal mucosa in the antrum, consistent with gastritis; performed cold forceps biopsy for evaluation of h. Pylori EUS: The parenchyma of the liver appeared normal. The parenchyma was visualized in the left lobe and right lobe of the liver. The hepatic ducts appeared normal. The gallbladder was not visualized. The parenchyma was visualized in the entire pancreas and appeared to have a normal salt and pepper appearance. The pancreatic duct appeared normal. The bile duct appeared normal. There was no evidence of choledocholithiasis Findings Endoscopic views of the esophagus and duodenum appeared normal. Mild, patchy abnormal mucosa in the antrum, consistent with gastritis; performed cold forceps biopsy The parenchyma of the liver appeared normal. The parenchyma was visualized in the left lobe and right lobe of the liver. The hepatic ducts appeared normal. The gallbladder was not visualized. The parenchyma was visualized in the entire pancreas and appeared to have a normal salt and pepper appearance. The pancreatic duct appeared normal and measured 2 mm at the head, 1 mm at the body and 1 mm at the tail. The bile duct appeared normal and had no dilation, stricture, stones, plugs, sludge or wall thickening. The bile duct measured 3 mm at the distal end, 4 mm at the middle and 4 mm at the proximal end. Recommendation No etiology for abdominal pain identfied No evidence of biliary stones Explore hepatocellular etiology of elevated LFTs Indication Biliary obstruction ([facility]) Staff Staff Role Mau Kruse MD Proceduralist Medications See Anesthesia Record. Preprocedure A history and physical has been performed, and patient medication allergies have been reviewed. The patient's tolerance of previous anesthesia has been reviewed. The risks and benefits of the procedure and the sedation options and risks were discussed with the patient. All questions were answered and informed consent obtained. Details of the Procedure The patient underwent monitored anesthesia care, which was administered by an anesthesia professional. The patient's blood pressure, heart rate, level of consciousness, oxygen, respirations, ECG and ETCO2 were monitored throughout the procedure. The linear scope was introduced through the mouth and advanced to the second part of the duodenum. The patient experienced no blood loss. The procedure was not difficult. The patient tolerated the procedure well. There were no apparent adverse events. Events Procedure Events Event Event Time ENDO SCOPE IN TIME 08/23/2024 2:44 PM ENDO SCOPE OUT TIME 08/23/2024 2:48 PM ENDO SCOPE IN TIME 08/23/2024 2:49 PM ENDO SCOPE OUT TIME 08/23/2024 2:55 PM Specimens ID Type Source Tests Collected by Time 1 : random stomach r/o hpylori Tissue STOMACH ANTRUM BIOPSY SURGICAL PATHOLOGY EXAM Senthil Vieira 08/23/2024 1446 Procedure Location [id number] [place] [id number] Referring Provider Mau Kruse MD Procedure Provider Mau Kruse MD [facility] Work Phone: Endoscopic Ultrasound (Upper )Ordered By: Mau Kruse on 08-24-2024 [facility] Work Phone: Magnesiumon 08-24-2024 Magnesium [Mass/Vol] 1.77 mg/dL 1.60 - 2.40 mg/dL [facility] Magnesium [Mass/Vol] 1.77 mg/dL Normal 1.60-2.40 [facility] Comment on above: Performed By: #### 1 9123-9 #### BALWINDER SINGH ([id number]) [facility] ([facility] [address] [place] [address] No Panel Informationon 08-24 Interpretation and review of laboratory results Normal [facility] Phosphateon 08-24-2024 Phosphate [Mass/Vol] 4.9 mg/dL Normal 2.5-4.9 [facility] Comment on above: Result Comment: The performance characteristics of phosphorus testing in heparinized plasma have been validated by the individual laboratory site where testing is performed. Testing on heparinized plasma is not approved by the FDA; however, such approval is not necessary. Performed By: #### 2 777-1 #### BALWINDER SINGH (52247) [facility] ([facility] [id number] [place], [place] [id number] Phosphoruson 08-24-2024 Phosphate [Mass/Vol] 4.9 mg/dL 2.5 - 4 .9 mg/dL [facility] Comment on above: The performance dahlia acteristics of phosphorus testing in heparinized plasma have been validated by the individual laboratory site where testing is performed. Testing on heparinized plasma is not approved by the FDA; however, such approval is not necessary. CBC panel Auto (Bld)on 08-23 Erythrocyte distribution width (RBC) [Ratio] 12 % 11.5 - 14.5 % [facility] Hematocrit (Bld) [Volume fraction] 38.5 % 36.0 - 46.0 % [facility] Hemoglobin (Bld) [Mass/Vol] 12.5 g/dL 12.0 - 16.0 g/dL [facility] Interpretation and review of laboratory results Normal [facility] MCH (RBC) [Entitic mass] 29.9 pg 26.0 - 34.0 pg [facility] MCHC (RBC) [Mass/Vol] 32.5 g/dL 32.0 - 36.0 g/dL [facility] MCV (RBC) [Entitic vol] 92 fL 80 - 100 fL [facility] Nucleated RBC/100 WBC (Bld) [Ratio] 0 % [facility] Platelets (Bld) [#/Vol] 315 10*3/uL [facility] RBC (Bld) [#/Vol] 4.18 10*6/uL [facility] WBC (Bld) [#/Vol] 8.4 10*3/uL [facility] Erythrocyte distribution width (RBC) [Ratio] 12.0 % Normal 11.5-14.5 [facility] Comment on above: Performed By: #### 5 8410-2 #### BALWINDER SINGH (52048) [facility] ([facility] [address] [place] [address] Hematocrit (Bld) [Volume fraction] 38.5 % Normal 36.0-46.0 [facility] Comment on above: Performed By: #### 5 8410-2 #### BALWINDER SINGH (37304) [facility] ([facility] [address] [place] [address] Hemoglobin (Bld) [Mass/Vol] 12.5 g/dL Normal 12.0-16.0 [facility] Comment on above: Performed By: #### 5 8410-2 #### BALWINDER SINGH (64214) [facility] ([facility] [address] [place] [address] MCH (RBC) [Entitic mass] 29.9 pg Normal 26.0-34.0 [facility] Comment on above: Performed By: #### 5 8410-2 #### BALWINDER SINGH (62233) [facility] ([facility] [id number] [place] [address] MCHC (RBC) [Mass/Vol] 32.5 g/dL Normal 32.0-36.0 [facility] Comment on above: Performed By: #### 5 8410-2 #### BALWINDER SINGH (62774) [facility] ([facility] [id number] [place] [address] MCV (RBC) [Entitic vol] 92 fL Normal 80-100 [facility] Comment on above: Performed By: #### 5 8410-2 #### BALWINDER SINGH (16784) [facility] ([facility] [address] [place] [address] Nucleated RBC/100 WBC (Bld) [Ratio] 0.0 /100 WBCs Normal 0.0-0.0 [facility] Comment on above: Performed By: #### 5 8410-2 #### BALWINDER SINGH (08126) [facility] ([facility] [address] [place] [address] Platelets (Bld) [#/Vol] 315 x10*3/uL Normal 150-450 [facility] Comment on above: Performed By: #### 5 8410-2 #### BALWINDER SINGH (53821) [facility] ([facility] [address] [place] [address] RBC (Bld) [#/Vol] 4.18 x10*6/uL Normal 4.00-5.20 [facility] Comment on above: Performed By: #### 5 8410-2 #### BALWINDER SINGH (64758) [facility] ([facility] [id number] [place] [address] WBC (Bld) [#/Vol] 8.4 x10*3/uL Normal 4.4-11.3 [facility] Comment on above: Performed By: #### 5 8410-2 #### BALWINDER SINGH (42556) [facility] ([facility] [address] [place] [address] Coagulation tissue factor in ducedon 08-23-2024 PT Coag (PPP) [Time] 11.6 s Normal 9.8-12.8 [facility] Comment on above: Performed By: #### 5 902-2 #### BALWINDER SINGH ([id number]) [facility] [place] [address] [place] [id number] Comprehensive metabolic 2000 panelon 08-23-2024 Albumin BCP dye [Mass/Vol] 3.8 g/dL 3.4 - 5.0 g/dL [facility] ALP [Catalytic activity/Vol] 191 U/L High 33 - 110 U/L [facility] ALT With P-5'-P [Catalytic activity/Vol] 197 U/L High 7 - 45 U/L [facility] Comment on above: Patients treated wit h Sulfasalazine may generate falsely decreased results for ALT. Anion gap [Moles/Vol] 12 mmol/L 10 - 2 0 mmol/L [facility] AST With P-5'-P [Catalytic activity/Vol] 41 U/L High 9 - 39 U/L [facility] Bilirubin [Mass/Vol] 0.6 mg/dL 0.0 - 1 .2 mg/dL [facility] Calcium [Mass/Vol] 9.1 mg/dL 8.6 - 10. 3 mg/dL [facility] Chloride [Moles/Vol] 105 mmol/L 98 - 10 7 mmol/L [facility] CO2 [Moles/Vol] 25 mmol/L 21 - 32 mmol/L [facility] Creatinine [Mass/Vol] 0.56 mg/dL 0.50 - 1.05 mg/dL [facility] eGFR - PINF [facility] Comment on above: Calculations of luis miguel mated GFR are performed using the 2020 CKD-EPI Study Refit equation without the race variable for the IDMS-Traceable creatinine methods. https://jasn.asnjournals.org/content//ASN.88101 48809 Glucose [Mass/Vol] 84 mg/dL 74 - 99 mg/dL [facility] Interpretation and review of laboratory results Abnormal [facility] Potassium [Moles/Vol] 3.8 mmol/L 3.5 - 5.3 mmol/L [facility] Protein [Mass/Vol] 6.2 g/dL Low 6.4 - 8.2 g/dL [facility] Sodium [Moles/Vol] 138 mmol/L 136 - 145 mmol/L [facility] Urea nitrogen [Mass/Vol] 11 mg/dL 6 - 23 mg/dL [facility] Albumin BCP dye [Mass/Vol] 3.8 g/dL Normal 3.4-5.0 [facility] Comment on above: Performed By: #### 2 4323-8 #### BALWINDER SINGH (71335) [facility] ([facility] [address] [place] [address] ALP [Catalytic activity/Vol] 191 U/L High 33-110 [facility] Comment on above: Performed By: #### 2 4323-8 #### BALWINDER SINGH (91636) [facility] ([facility] [address] [place] [address] ALT With P-5'-P [Catalytic activity/Vol] 197 U/L High 7-45 [facility] Comment on above: Result Comment: Meena ents treated with Sulfasalazine may generate falsely decreased results for ALT. Performed By: #### 2 4323-8 #### BALWINDER SINGH (25267) [facility] ([facility] [address] [place] [address] Anion gap [Moles/Vol] 12 mmol/L Normal 10-20 [facility] Comment on above: Performed By: #### 2 4323-8 #### BALWINDER SINGH (83963) [facility] ([facility] [address] [place] [address] AST With P-5'-P [Catalytic activity/Vol] 41 U/L High 9-39 [facility] Comment on above: Performed By: #### 2 4323-8 #### BALWINDER SINGH (34602) [facility] ([facility] [address] [facility] [address] Bilirubin [Mass/Vol] 0.6 mg/dL Normal 0.0-1.2 [facility] Comment on above: Performed By: #### 2 4323-8 #### BALWINDER SINGH (46738) [facility] ([facility] [address] [place] [address] Calcium [Mass/Vol] 9.1 mg/dL Normal 8.6-10.3 [facility] Comment on above: Performed By: #### 2 4323-8 #### BALWINDER SINGH (55623) [facility] ([facility] [address] [place] [address] Chloride [Moles/Vol] 105 mmol/L Normal 98-107 [facility] Comment on above: Performed By: #### 2 4323-8 #### BALWINDER SINGH (79234) [facility] ([facility] [address] [place] [address] CO2 [Moles/Vol] 25 mmol/L Normal 21-[address] [facility] Comment on above: Performed By: #### 2 4323-8 #### BALWINDER SINGH (23991) [facility] ([facility] [address] [place] [address] Creatinine [Mass/Vol] 0.56 mg/dL Normal 0.50-1.05 [facility] Comment on above: Performed By: #### 2 4323-8 #### BALWINEDR SINGH (80134) [facility] ([facility] [address] [place] [address] GFR/1.73 sq M.predicted MDRD (S/P/Bld) [Vol rate/Area] mL/min/{1.73_m2} Normal >60 [facility] Comment on above: Result Comment: Calc ulations of estimated GFR are performed using the 2020 CKD-EPI Study Refit equation without the race variable for the IDMS-Traceable creatinine methods. https://jasn.asnjournals.org/content//ASN.07968 38615 Performed By: #### 2 4323-8 #### BALWINDER SINGH (45208) [facility] ([facility] [address] [facility] [address] Glucose [Mass/Vol] 84 mg/dL Normal 74-99 [facility] Comment on above: Performed By: #### 2 4323-8 #### BALWINDER SINGH (36163) [facility] ([facility] [address] [place] [address] Potassium [Moles/Vol] 3.8 mmol/L Normal 3.5-5.3 [facility] Comment on above: Performed By: #### 2 4323-8 #### BALWINDER SINGH ([id number]) [facility] [place] [address] [place] [address] Protein [Mass/Vol] 6.2 g/dL Low 6.4-8.2 [facility] Comment on above: Performed By: #### 2 4323-8 #### BALWINDER SINGH ([id number]) [facility] [place] [address] [place] [address] Sodium [Moles/Vol] 138 mmol/L Normal 136-145 [facility] Comment on above: Performed By: #### 2 4323-8 #### BALWINDER SINGH ([id number]) [facility] [place] [place] [address] [place] [address] Urea nitrogen [Mass/Vol] 11 mg/dL Normal 6-23 [facility] Comment on above: Performed By: #### 2 4323-8 #### BALWINDER SINGH ([id number]) [facility] [place] [place] [address] [facility] [place] [address] Endoscopic Ultrasound (Upper )on 08-23-2024 Radiology Study observation (narrative) [facility] Work Phone: PT Coag (PPP) [Time]on 08-23 INR Coag (PPP) [Relative time] 1 {INR} 0.9 - 1.1 [facility] Interpretation and review of laboratory results Normal [facility] INR Coag (PPP) [Relative time] 1.0 Normal 0.9-1.1 [facility] Comment on above: Performed By: #### 5 902-2 #### BALWINDER SINGH ([id number]) [facility] [place] [place] [place] [address] [place] [address] Procedure Not PerformedOrder ed By: Documentation Systemgenerated on 08-23-2024 [facility] Work Phone: Protime-INRon 08-23-2024 PT Coag (PPP) [Time] 11.6 s [facility] Surgical pathology studyon 1 10-24-2023 Surgical pathology study Pathology report.total SEE COMMENT Surgical Pathology Case: [id number] Authorizing Provider: Mau Kruse MD Collected: 08/23/2024 1446 Ordering Location: [facility] Received: 08/23/2024 1533 4 [facility] Pathologist: Deborah Hester MD Specimen: STOMACH ANTRUM BIOPSY, random stomach r/o hpylori Path report.final diagnosis SEE COMMENT A. STOMACH ANTRUM BIOPSY: -- Antral-type gastric mucosa with chemical/reactive gastropathy. --Helicobacter pylori-like organisms are not identified. Laboratory comment By the signature on this report, the individual or group listed as making the Final Interpretation/Diagnosis certifies that they have reviewed this case. Path report.relevant Hx SEE COMMENT Biliary obstruction ([facility]) [K83.1] A. Rule out H.pylori Path report.gross observation SEE COMMENT A: Received in formalin, labeled with the patient's name and hospital number and 1, random stomach, stomach antrum biopsy , are two fragments of cerna, soft tissue aggregating to 0.5 x 0.5 x 0.3 cm. The specimen is submitted in toto in one cassette. [facility] Bilirubin,Directon 4 Bilirubin.indirect [Mass/Vol] 0.30 mg/dL High 0.03-0.18 [facility] Comment on above: Result Comment: PERF ORMED BY: [place] [address] PATHOLOGIST [employer] MANAGER VERITO CORONADO M.D. Performed By: #### C KAVITA CBCNO, BILID #### [address] Comprehensive Metabolic Pane antonio 08-22-2024 Albumin [Mass/Vol] 4.2 g/dL Normal 3.5-5.7 [facility] Comment on above: Performed By: #### C KAVITA CBCNO, BILID #### [address] Albumin/Globulin [Mass ratio] 1.6 {ratio} Normal [facility] Comment on above: Performed By: #### C KAVITA CBCNO, BILID #### [address] ALP [Catalytic activity/Vol] 276 U/L High 34-104 [facility] Comment on above: Performed By: #### C KAVITA CBCNO, BILID #### [address] ALT [Catalytic activity/Vol] 333 U/L High 7-52 [facility] Comment on above: Performed By: #### C KAVITA, CBCNO, BILID #### [facility] [address] [place] [address] Anion gap [Moles/Vol] 14.6 mmol/L Normal 6.0-15.0 [facility] Comment on above: Performed By: #### C MP, CBCNO, BILID #### [facility] [address] [place] [address] AST [Catalytic activity/Vol] 132 U/L High 13-39 [facility] Comment on above: Performed By: #### C DIVYA WALLS, BILID #### [facility] [address] [place] [place] [id number] [place] Bilirubin [Mass/Vol] 1.3 mg/dL High 0.3-1.0 [facility] Comment on above: Result Comment: Samp les from patients who have taken Naproxen have shown spurious elevation in Total Bilirubin levels. A metabolite of Naproxen, O-desmethylnaproxen, has been shown to interfere with the Jendrassik-Grof method for measuring Total Bilirubin. Performed By: #### C DIVYA WALLS, BILID #### [facility] [address] [place] [address] [place] Calcium [Mass/Vol] 9.4 mg/dL Normal 8.6-10.3 [facility] Comment on above: Performed By: #### C DIVYA WALLS, BILID #### [facility] [address] [place] [id number] [place] Chloride [Moles/Vol] 103 mmol/L Normal 98-107 [facility] Comment on above: Performed By: #### C DIVYA WALLS, BILID #### [facility] [address] [place] [phone] [place] CO2 [Moles/Vol] 23.5 mmol/L Normal 21.0-31.0 [facility] Comment on above: Performed By: #### C DIVYA WALLS, BILID #### [facility] [address] [place] [id number] [place] Creatinine [Mass/Vol] 0.63 mg/dL Normal 0.60-1.20 [facility] Comment on above: Performed By: #### C DIVYA WALLS, BILID #### [facility] [address] [place] [phone] [place] Creatinine Clr Calc Pharmacy 130.43 Normal [facility] Comment on above: Performed By: #### C DIVYA WALLS, BILID #### [facility] [address] [place] [phone] [place] GFR/1.73 sq M.predicted MDRD (S/P/Bld) [Vol rate/Area] mL/min/{1.73_m2} Normal [facility] Comment on above: Performed By: #### C DIVYA WALLS, BILID #### [facility] [address] Globulin (S) [Mass/Vol] 2.7 g/dL Normal [facility] Comment on above: Performed By: #### C DIVYA WALLS, BILID #### [address] Glucose [Mass/Vol] 72 mg/dL Normal 70-100 [facility] Comment on above: Result Comment: [facility] Glucose Reference Range is dependent on time and content of last meal. Glucose of more than 200 mg/dL in a nonstressed, ambulatory subject supports the diagnosis of Diabetes Mellitus. ADA recommended reference range Performed By: #### C DIVYA WALLS, BILID #### [facility] [address] Potassium [Moles/Vol] 4.1 mmol/L Normal 3.5-5.1 [facility] Comment on above: Performed By: #### C DIVYA WALLS, BILID #### [address] Protein [Mass/Vol] 6.9 g/dL Normal 6.4-8.9 [facility] Comment on above: Performed By: #### C DIVYA WALLS, BILID #### [address] Sodium [Moles/Vol] 137 mmol/L Normal 136-145 [facility] Comment on above: Performed By: #### C DIVYA WALLS, BILID #### [facility] [address] Urea nitrogen [Mass/Vol] 12 mg/dL Normal 7-25 [facility] Comment on above: Performed By: #### C DIVYA WALLS, BILID #### [address] Hemogram CBC Without Diffon 08-22-2024 Erythrocyte distribution width (RBC) [Ratio] 12.7 % Normal 11.9-15.3 [facility] Comment on above: Performed By: #### C MP CBCNO, BILID #### [address] Hematocrit (Bld) [Volume fraction] 40.0 % Normal 34.0-46.4 [facility] Comment on above: Performed By: #### C MP CBCNO, BILID #### [address] Hemoglobin (Bld) [Mass/Vol] 13.5 g/dL Normal 11.8-15.4 [facility] Comment on above: Performed By: #### C MP, CBCNO, BILID #### [address] MCH (RBC) [Entitic mass] 30.6 pg Normal 24.7-34.3 [facility] Comment on above: Performed By: #### C KAVITA CBCNO, BILID #### [address] MCV (RBC) [Entitic vol] 90.7 fL Normal 80-100 [facility] Comment on above: Performed By: #### C KAVITA CBCNO, BILID #### [address] Mean Corpuscular HGB Conc 33.8 g/dL Normal 32.0-35.0 [facility] Comment on above: Performed By: #### C KAVITA CBCNO, BILID #### [address] Platelet mean volume (Bld) [Entitic vol] 7.7 fL Normal 6.3-10.7 [facility] Comment on above: Result Comment: PERF ORMED BY: [place] [address] PATHOLOGIST [employer] MANAGER VERITO CORONADO M.D. Performed By: #### C KAVITA, CBCNO, BILID #### [address] Platelets (Bld) [#/Vol] 330 10*3/uL Normal 150-450 [facility] Comment on above: Performed By: #### C MP CBCNO, BILID #### [address] RBC (Bld) [#/Vol] 4.41 10*6/uL Normal 3.60-5.00 [facility] Comment on above: Performed By: #### C MP CBCNO, BILID #### [address] WBC (Bld) [#/Vol] 9.9 10*3/uL Normal 3.8-11.6 [facility] Comment on above: Performed By: #### C KAVITA CBCNO, BILID #### [address] Bilirubin,Directon Bilirubin.indirect [Mass/Vol] 2.30 mg/dL High 0.03-0.18 [facility] Comment on above: Result Comment: PERF ORMED BY: [place] [address] PATHOLOGIST [employer] MANAGER VERITO CORONADO M.D. Performed By: #### C KAVITA BILID, CBC #### [address] Comprehensive Metabolic Pane antonio 08-21-2024 Albumin [Mass/Vol] 3.9 g/dL Normal 3.5-5.7 [facility] Comment on above: Performed By: #### C MP BILID, CBC #### [address] Albumin/Globulin [Mass ratio] 2.0 {ratio} Normal [facility] Comment on above: Performed By: #### C MP BILID, CBC #### [address] ALP [Catalytic activity/Vol] 305 U/L High 34-104 [facility] Comment on above: Performed By: #### C MP BILID, CBC #### [place] [address] ALT [Catalytic activity/Vol] 486 U/L High 7-52 [facility] Comment on above: Performed By: #### C DAVEY WALLS, CBC #### [address] Anion gap [Moles/Vol] 12.3 mmol/L Normal 6.0-15.0 [facility] Comment on above: Performed By: #### C DAVEY WALLS, CBC #### [address] AST [Catalytic activity/Vol] 419 U/L High 13-39 [facility] Comment on above: Performed By: #### C DAVEY WALLS, CBC #### [address] Bilirubin [Mass/Vol] 3.6 mg/dL High 0.3-1.0 [facility] Comment on above: Result Comment: Samp les from patients who have taken Naproxen have shown spurious elevation in Total Bilirubin levels. A metabolite of Naproxen, O-desmethylnaproxen, has been shown to interfere with the Jendrassik-Grof method for measuring Total Bilirubin. Performed By: #### C DAVEY WALLS, CBC #### [address] Calcium [Mass/Vol] 9.3 mg/dL Normal 8.6-10.3 [facility] Comment on above: Performed By: #### C DAVEY WALLS, CBC #### [address] Chloride [Moles/Vol] 106 mmol/L Normal 98-107 [facility] Comment on above: Performed By: #### C DAVEY WALLS, CBC #### [address] CO2 [Moles/Vol] 25.0 mmol/L Normal 21.0-31.0 [facility] Comment on above: Performed By: #### C DAVEY WALLS, CBC #### [place] [address] [place] Creatinine [Mass/Vol] 0.62 mg/dL Normal 0.60-1.20 [facility] Comment on above: Performed By: #### C DVAEY WALLS, CBC #### [address] Creatinine Clr Calc Pharmacy 130.83 Normal [facility] Comment on above: Performed By: #### C DAVEY WALLS, CBC #### [address] GFR/1.73 sq M.predicted MDRD (S/P/Bld) [Vol rate/Area] mL/min/{1.73_m2} Normal [facility] Comment on above: Performed By: #### C DAVEY WALLS, CBC #### [address] Globulin (S) [Mass/Vol] 2.0 g/dL Normal [facility] Comment on above: Performed By: #### C DAVEY WALLS, CBC #### [address] Glucose [Mass/Vol] 87 mg/dL Normal 70-100 [facility] Comment on above: Result Comment: [facility] Glucose Reference Range is dependent on time and content of last meal. Glucose of more than 200 mg/dL in a nonstressed, ambulatory subject supports the diagnosis of Diabetes Mellitus. ADA recommended reference range Performed By: #### C DAVEY WALLS, CBC #### [address] Potassium [Moles/Vol] 4.3 mmol/L Normal 3.5-5.1 [facility] Comment on above: Performed By: #### C DAVEY WALLS, CBC #### [address] Protein [Mass/Vol] 5.9 g/dL Low 6.4-8.9 [facility] Comment on above: Performed By: #### C DAVEY WALLS, CBC #### [address] Sodium [Moles/Vol] 139 mmol/L Normal 136-145 [facility] Comment on above: Performed By: #### C MPDAVEY, CBC #### [address] Urea nitrogen [Mass/Vol] 5 mg/dL Low 7-25 [facility] Comment on above: Performed By: #### C MP BILID, CBC #### [address] Hemogram CBC Without Diffon 08-21-2024 Erythrocyte distribution width (RBC) [Ratio] 12.8 % Normal 11.9-15.3 [facility] Comment on above: Performed By: #### C BCNO #### [address] Hematocrit (Bld) [Volume fraction] 40.7 % Normal 34.0-46.4 [facility] Comment on above: Performed By: #### C BCNO #### [address] Hemoglobin (Bld) [Mass/Vol] 13.3 g/dL Normal 11.8-15.4 [facility] Comment on above: Performed By: #### C BCNO #### [address] MCH (RBC) [Entitic mass] 30.1 pg Normal 24.7-34.3 [facility] Comment on above: Performed By: #### C BCNO #### [address] MCV (RBC) [Entitic vol] 91.7 fL Normal 80-100 [facility] Comment on above: Performed By: #### C BCNO #### [address] Mean Corpuscular HGB Conc 32.8 g/dL Normal 32.0-35.0 [facility] Comment on above: Performed By: #### C BCNO #### [address] Platelet mean volume (Bld) [Entitic vol] 8.1 fL Normal 6.3-10.7 [facility] Comment on above: Result Comment: PERF ORMED BY: [place] [address] PATHOLOGIST [employer]POSAL MANAGER VERITO CORONADO M.D. Performed By: #### C BCNO #### [address] Platelets (Bld) [#/Vol] 313 10*3/uL Normal 150-450 [facility] Comment on above: Performed By: #### C BCNO #### [address] RBC (Bld) [#/Vol] 4.44 10*6/uL Normal 3.60-5.00 [facility] Comment on above: Performed By: #### C BCNO #### [address] WBC (Bld) [#/Vol] 8.3 10*3/uL Normal 3.8-11.6 [facility] Comment on above: Performed By: #### C BCNO #### [address] RILEY with Reflexon 08-20-2024 RILEY with Reflex Negative Normal Negative [facility] Comment on above: Result Comment: Perf ormed at: - [facility] [address] [id number] Review Rn: Nicholas Hughes PhD, Phone: [phone] Performed By: #### C MP, BILID, CBC #### [address] Bilirubin,Directon Bilirubin.indirect [Mass/Vol] 0.30 mg/dL High 0.03-0.18 [facility] Comment on above: Result Comment: PERF ORMED BY: [place] [address] PATHOLOGIST [employer] MANAGER VERITO CORONADO M.D. Performed By: #### C MP, BILID, CBC #### [address] Complete Blood Count Auto Di ffon 08-20-2024 Basophils (Bld) [#/Vol] 0.0 10*3/uL Normal 0.0-0.2 [facility] Comment on above: Result Comment: PERF ORMED BY: [place] [address] PATHOLOGIST [employer] DISPOSAL MANAGER VERITO CORONADO M.D. Performed By: #### C MP, BILID, CBC #### [address] Basophils/100 WBC (Bld) 0.6 % Normal . [facility] Comment on above: Performed By: #### C MP, BILID, CBC #### [address] Eosinophils (Bld) [#/Vol] 0.3 10*3/uL Normal 0.0-0.45 [facility] Comment on above: Performed By: #### C MP, BILID, CBC #### [address] Eosinophils/100 WBC (Bld) 5.6 % Normal . [facility] Comment on above: Performed By: #### C MP, BILID, CBC #### [address] Erythrocyte distribution width (RBC) [Ratio] 12.9 % Normal 11.9-15.3 [facility] Comment on above: Performed By: #### C MP, BILID, CBC #### [address] Hematocrit (Bld) [Volume fraction] 36.7 % Normal 34.0-46.4 [facility] Comment on above: Performed By: #### C MP, BILID, CBC #### [address] Hemoglobin (Bld) [Mass/Vol] 12.3 g/dL Normal 11.8-15.4 [facility] Comment on above: Performed By: #### C MP, BILID, CBC #### [address] Lymphocytes (Bld) [#/Vol] 2.3 10*3/uL Normal 1.00-4.8 [facility] Comment on above: Performed By: #### C MP, BILID, CBC #### [address] Lymphocytes/100 WBC (Bld) 39.4 % Normal . [facility] Comment on above: Performed By: #### C MP, BILID, CBC #### [address] MCH (RBC) [Entitic mass] 30.5 pg Normal 24.7-34.3 [facility] Comment on above: Performed By: #### C MP, BILID, CBC #### [address] MCV (RBC) [Entitic vol] 91.0 fL Normal 80-100 [facility] Comment on above: Performed By: #### C MP, BILID, CBC #### [address] Mean Corpuscular HGB Conc 33.5 g/dL Normal 32.0-35.0 [facility] Comment on above: Performed By: #### C MP, BILID, CBC #### [address] Monocytes (Bld) [#/Vol] 0.4 10*3/uL Normal 0.0-0.8 [facility] Comment on above: Performed By: #### C MP, BILID, CBC #### [address] Monocytes/100 WBC (Bld) 7.3 % Normal . [facility] Comment on above: Performed By: #### C MP, BILID, CBC #### [address] Neutrophils (Bld) [#/Vol] 2.7 10*3/uL Normal 1.8-7.7 [facility] Comment on above: Performed By: #### C MP, BILID, CBC #### [address] Neutrophils/100 WBC (Bld) 47.1 % Normal . [facility] Comment on above: Performed By: #### C MP, BILID, CBC #### [address] NRBC% 0.1 /100{WBC} Normal 0-0.5 [facility] Comment on above: Performed By: #### C MP, BILID, CBC #### [address] Platelet mean volume (Bld) [Entitic vol] 7.6 fL Normal 6.3-10.7 [facility] Comment on above: Performed By: #### C MP, BILID, CBC #### [address] Platelets (Bld) [#/Vol] 277 10*3/uL Normal 150-450 [facility] Comment on above: Performed By: #### C MP BILID, CBC #### [address] RBC (Bld) [#/Vol] 4.03 10*6/uL Normal 3.60-5.00 [facility] Comment on above: Performed By: #### C MP, BILID, CBC #### [address] WBC (Bld) [#/Vol] 5.8 10*3/uL Normal 3.8-11.6 [facility] Comment on above: Performed By: #### C MP, BILID, CBC #### [address] Comprehensive Metabolic Pane antonio 08-20-2024 Albumin [Mass/Vol] 3.5 g/dL Normal 3.5-5.7 [facility] Comment on above: Performed By: #### C MP, BILID, CBC #### [facility] [address] Albumin/Globulin [Mass ratio] 1.6 {ratio} Normal [facility] Comment on above: Performed By: #### C DAVEY WALLS, CBC #### [facility] [address] ALP [Catalytic activity/Vol] 178 U/L High 34-104 [facility] Comment on above: Performed By: #### C DAVEY WALLS, CBC #### [facility] [address] ALT [Catalytic activity/Vol] 368 U/L High 7-52 [facility] Comment on above: Performed By: #### C DAVEY WALLS, CBC #### [address] Anion gap [Moles/Vol] 8.7 mmol/L Normal 6.0-15.0 [facility] Comment on above: Performed By: #### C DAVEY WALLS, CBC #### [address] AST [Catalytic activity/Vol] 477 U/L High 13-39 [facility] Comment on above: Performed By: #### C DAVEY WALLS, CBC #### [address] Bilirubin [Mass/Vol] 0.9 mg/dL Normal 0.3-1.0 [facility] Comment on above: Performed By: #### C DAVEY WALLS, CBC #### [address] Calcium [Mass/Vol] 8.8 mg/dL Normal 8.6-10.3 [facility] Comment on above: Performed By: #### C DAVEY WALLS, CBC #### [place] [address] [place] Chloride [Moles/Vol] 107 mmol/L Normal 98-107 [facility] Comment on above: Performed By: #### C DAVEY WALLS, CBC #### [address] CO2 [Moles/Vol] 27.3 mmol/L Normal 21.0-31.0 [facility] Comment on above: Performed By: #### C DAVEY WALLS, CBC #### [address] Creatinine [Mass/Vol] 0.63 mg/dL Normal 0.60-1.20 [facility] Comment on above: Performed By: #### C DAVEY WALLS, CBC #### [place] [address] [place] Creatinine Clr Calc Pharmacy 128.76 Normal [facility] Comment on above: Performed By: #### C DAVEY WALLS, CBC #### [place] [address] [place] GFR/1.73 sq M.predicted MDRD (S/P/Bld) [Vol rate/Area] mL/min/{1.73_m2} Normal [facility] Comment on above: Performed By: #### C DAVEY WALLS, CBC #### [address] Globulin (S) [Mass/Vol] 2.2 g/dL Normal [facility] Comment on above: Performed By: #### C DAVEY WALLS, CBC #### [address] Glucose [Mass/Vol] 88 mg/dL Normal 70-100 [facility] Comment on above: Result Comment: [place] Glucose Reference Range is dependent on time and content of last meal. Glucose of more than 200 mg/dL in a nonstressed, ambulatory subject supports the diagnosis of Diabetes Mellitus. ADA recommended reference range Performed By: #### C DAVEY WALLS, CBC #### [address] Potassium [Moles/Vol] 4.0 mmol/L Normal 3.5-5.1 [facility] Comment on above: Performed By: #### C DAVEY WALLS, CBC #### [address] Protein [Mass/Vol] 5.7 g/dL Low 6.4-8.9 [facility] Comment on above: Performed By: #### C DAVEY WALLS, CBC #### [address] Sodium [Moles/Vol] 139 mmol/L Normal 136-145 [facility] Comment on above: Performed By: #### C DAVEY WALLS, CBC #### [address] Urea nitrogen [Mass/Vol] 7 mg/dL Normal 7-25 [facility] Comment on above: Performed By: #### C DAVEY WALLS, CBC #### [address] Ferritinon 08-20-2024 Ferritin [Mass/Vol] 461.3 ng/mL High 11.0-306.8 [facility] Comment on above: Result Comment: PERF ORMED BY: [place] [address] PATHOLOGIST [employer] WASTE DISPOSAL MANAGER VERITO CORONADO M.D. Performed By: #### C DAVEY WALLS, CBC #### [address] Iron and TIBC Profileon 08-11 % Iron Saturation 40.4 % Normal 20-50 [facility] Comment on above: Performed By: #### C DAVEY WALLS, CBC #### [address] Iron [Mass/Vol] 133 ug/dL Normal 50-212 [facility] Comment on above: Performed By: #### C DAVEY WALLS, CBC #### [address] Total Iron Binding Capacity 329 ug/dL Normal 255-450 [facility] Comment on above: Performed By: #### C DAVEY WALLS, CBC #### [address] Transferrin [Mass/Vol] 235 mg/dL Normal 203-362 [facility] Comment on above: Performed By: #### C DAVEY WALLS, CBC #### [address] Liver-Kidney Microsomal Abon 08-20-2024 Liver-Kidney Microsomal Ab 1.1 Normal 0.0-20.0 [facility] Comment on above: Result Comment: Nega tive 0.0 - 20.0 Equivocal 20.1 - 24.9 Positive >24.9 LKM type 1 antibodies are detected in patients with autoimmune hepatitis type 2 and in up to 8% of patients with chronic HCV infection. Performed at: [facility] [place] [address] Review Rn: Nicholas Hughes PhD, Phone: [phone] Performed By: #### C DAVEY WALLS, CBC #### [address] Mitochondrial (M2) Antibodyo n 08-20-2024 Mitochondrial (M2) Antibody <20.0 Normal 0.0-20.0 [facility] Comment on above: Result Comment: Nega tive 0.0 - 20.0 Equivocal 20.1 - 24.9 Positive >24.9 Mitochondrial (M2) Antibodies are found in 90-96% of patients with primary biliary cirrhosis. Performed at: [facility] [place] [address] Review Rn: Nicholas Hughes PhD, Phone: [phone] Performed By: #### C DAVEY WALLS, CBC #### [place] [address] [place] Smooth Muscle Antibodyon Smooth Muscle Antibody 4 Normal 0-19 [facility] Comment on above: Result Comment: Nega tive 0 - 19 Weak positive 20 - 30 Moderate to strong positive >30 Actin Antibodies are found in 52-85% of patients with autoimmune hepatitis or chronic active hepatitis and in 22% of patients with primary biliary cirrhosis. Performed By: #### C DAVEY WALLS, CBC #### [address] Soluble Liver Antigen, IgGon 08-20-2024 Soluble Liver Antigen, IgG 1.2 Normal 0.0-20.0 [facility] Comment on above: Result Comment: Nega tive 0.0 - 20.0 Equivocal 20.1 - 24.9 Positive >24.9 Performed at: - [facility] [id number] Review Rn: Jamal Lopez MD, Phone: [phone] PERFORMED BY: [place] [address] PATHOLOGIST [employer] WASTE DISPOSAL MANAGER VERITO CORONADO M.D. Performed By: #### C KAVITA BILID, CBC #### [address] Basic Metabolic Panelon 12 Anion gap [Moles/Vol] 13.1 mmol/L Normal 6.0-15.0 [facility] Comment on above: Performed By: #### C KAVITA BILID, CBC #### [address] Calcium [Mass/Vol] 9.5 mg/dL Normal 8.6-10.3 [facility] Comment on above: Performed By: #### C DAVEY WALLS, CBC #### [address] Chloride [Moles/Vol] 103 mmol/L Normal 98-107 [facility] Comment on above: Performed By: #### C KAVITA BILID, CBC #### [address] CO2 [Moles/Vol] 26.0 mmol/L Normal 21.0-31.0 [facility] Comment on above: Performed By: #### C KAVITA BILID, CBC #### [address] Creatinine [Mass/Vol] 0.59 mg/dL Low 0.60-1.20 [facility] Comment on above: Performed By: #### C KAVITA BILID, CBC #### [address] Creatinine Clr Calc Pharmacy 137.49 Normal [facility] Comment on above: Performed By: #### C DAVEY WALLS, CBC #### [facility] [address] [place] [address] [place] GFR/1.73 sq M.predicted MDRD (S/P/Bld) [Vol rate/Area] mL/min/{1.73_m2} Normal [facility] Comment on above: Performed By: #### C DAVEY WALLS, CBC #### [address] Glucose [Mass/Vol] 95 mg/dL Normal 70-100 [facility] Comment on above: Result Comment: [place] Glucose Reference Range is dependent on time and content of last meal. Glucose of more than 200 mg/dL in a nonstressed, ambulatory subject supports the diagnosis of Diabetes Mellitus. ADA recommended reference range Performed By: #### C DAVEY WALLS, CBC #### [address] Potassium [Moles/Vol] 4.1 mmol/L Normal 3.5-5.1 [facility] Comment on above: Performed By: #### C DAVEY WALLS, CBC #### [place] [address] [place] Sodium [Moles/Vol] 138 mmol/L Normal 136-145 [facility] Comment on above: Performed By: #### C DAVEY WALLS, CBC #### [place] [address] [place] Urea nitrogen [Mass/Vol] 10 mg/dL Normal 7-25 [facility] Comment on above: Performed By: #### C DAVEY WALLS, CBC #### [address] abdomen pelvis w miguel a CT abdomen pelvis w [facility] [place] [address] [place] [address] CT Scan Report Signed Patient: Maida Cherry MR#: [id number] 3 : 1985 Acct:[id number] Age/Sex: 38 / F ADM Date: 08/19/24 Loc: ER Room: Type: [facility] ER Attending Dr: Copies to: Malini Armando MD Ordering Provider: Malini Armando MD Date of Service: 08/19/24 CT/CT abdomen pelvis w con: recent cholecystectomy, RUQ pain CT abdomen pelvis w con 08/19/2024 11:16 AM SIGNS AND SYMPTOMS: recent cholecystectomy, RUQ pain TECHNIQUE: Multidetector ct axial images of the abdomen and pelvis were obtained with IV contrast. Multiplanar reformats were performed and reviewed to further define anatomy and possible pathology. CT was performed with one or more of the following dose reduction techniques: Automated exposure control, adjustment of the mA and/or kV according to patient size, or use of iterative reconstruction technique. COMPARISON: 08/10/2024. FINDINGS: Lower Chest: Within normal limits. ABDOMEN: Liver: Within normal limits. Bile Ducts: Normal caliber. Gallbladder: Previously removed. There is edema along the gallbladder fossa consistent with recent cholecystectomy. Pancreas: Within normal limits. Spleen: Within normal limits. Adrenals: Within normal limits. Kidneys: Within normal limits. Pelvis: Reproductive Organs: No pelvic masses. Ureters: Within normal limits. Bladder: Within normal limits. Bowel: Normal caliber. There is a normal appendix in the right lower quadrant. Mesenteric Lymph Nodes: No enlarged mesenteric lymph nodes. Peritoneum: No ascites or free air, no fluid collection. Vessels: Atherosclerotic changes are noted in the lower abdominal aorta. Retroperitoneum: Within normal limits. Abdominal Wall: Postoperative edema is noted in the periumbilical region consistent with recent laparotomy. There is a small supraumbilical ventral wall hernia. The sac measures 3.6 x 1.9 x 4.0 cm. The ostium measures 16 mm in greatest dimension. Bones: Degenerative changes are noted in the sacroiliac joints. CT/CT abdomen pelvis w con IMPRESSION: No bowel obstruction. There is evidence of recent cholecystectomy with a small amount of postoperative edema in the right upper quadrant. Postoperative edema is noted in the periumbilical region consistent with recent laparotomy. There is a small supraumbilical ventral wall hernia. The sac measures 3.6 x 1.9 x 4.0 cm. The ostium measures 16 mm in greatest dimension. Impression dictated by: Charli Early M.D.08/19/2024 12:00 PM Dictation Location: [place] [address] Transcribed By: ANUPAMA 08/19/24 1200 Dictated By: Charli Early II, MD 08/19/24 1150 Signed By: 08/19/24 1200 Normal [facility] Complete Blood Count Auto Di ffon 08-19-2024 Basophils (Bld) [#/Vol] 0.0 10*3/uL Normal 0.0-0.2 [facility] Comment on above: Result Comment: PERF ORMED BY: [place] [address] PATHOLOGIST [employer] DISPOSAL MANAGER VERITO CORONADO M.D. Performed By: #### H EPATIC, CBC, LIPASE, BMP #### [address] Basophils/100 WBC (Bld) 0.2 % Normal . [facility] Comment on above: Performed By: #### H EPATIC, CBC, LIPASE, BMP #### [address] Eosinophils (Bld) [#/Vol] 0.2 10*3/uL Normal 0.0-0.45 [facility] Comment on above: Performed By: #### H EPATIC, CBC, LIPASE, BMP #### [address] Eosinophils/100 WBC (Bld) 2.3 % Normal . [facility] Comment on above: Performed By: #### H EPATIC, CBC, LIPASE, BMP #### [address] Erythrocyte distribution width (RBC) [Ratio] 12.8 % Normal 11.9-15.3 [facility] Comment on above: Performed By: #### H EPATIC, CBC, LIPASE, BMP #### [address] Hematocrit (Bld) [Volume fraction] 41.5 % Normal 34.0-46.4 [facility] Comment on above: Performed By: #### H EPATIC, CBC, LIPASE, BMP #### [address] Hemoglobin (Bld) [Mass/Vol] 13.9 g/dL Normal 11.8-15.4 [facility] Comment on above: Performed By: #### H EPATIC, CBC, LIPASE, BMP #### [address] Lymphocytes (Bld) [#/Vol] 2.1 10*3/uL Normal 1.00-4.8 [facility] Comment on above: Performed By: #### H EPATIC, CBC, LIPASE, BMP #### [address] Lymphocytes/100 WBC (Bld) 21.2 % Normal . [facility] Comment on above: Performed By: #### H EPATIC, CBC, LIPASE, BMP #### [address] MCH (RBC) [Entitic mass] 30.3 pg Normal 24.7-34.3 [facility] Comment on above: Performed By: #### H EPATIC, CBC, LIPASE, BMP #### [address] MCV (RBC) [Entitic vol] 90.4 fL Normal 80-100 [facility] Comment on above: Performed By: #### H EPATIC, CBC, LIPASE, BMP #### [address] Mean Corpuscular HGB Conc 33.5 g/dL Normal 32.0-35.0 [facility] Comment on above: Performed By: #### H EPATIC, CBC, LIPASE, BMP #### [address] Monocytes (Bld) [#/Vol] 0.5 10*3/uL Normal 0.0-0.8 [facility] Comment on above: Performed By: #### H EPATIC, CBC, LIPASE, BMP #### [address] Monocytes/100 WBC (Bld) 16.93 % Normal 0.00-20.00 [facility] Comment on above: Performed By: #### H EPATIC, CBC, LIPASE, BMP #### [address] Monocytes/100 WBC (Bld) 4.8 % Normal . [facility] Comment on above: Performed By: #### H EPATIC, CBC, LIPASE, BMP #### [address] Neutrophils (Bld) [#/Vol] 7.0 10*3/uL Normal 1.8-7.7 [facility] Comment on above: Performed By: #### H EPATIC, CBC, LIPASE, BMP #### [address] Neutrophils/100 WBC (Bld) 71.5 % Normal . [facility] Comment on above: Performed By: #### H EPATIC, CBC, LIPASE, BMP #### [address] NRBC% 0.1 /100{WBC} Normal 0-0.5 [facility] Comment on above: Performed By: #### H EPATIC, CBC, LIPASE, BMP #### [address] Platelet mean volume (Bld) [Entitic vol] 7.7 fL Normal 6.3-10.7 [facility] Comment on above: Performed By: #### H EPATIC, CBC, LIPASE, BMP #### [address] Platelets (Bld) [#/Vol] 327 10*3/uL Normal 150-450 [facility] Comment on above: Performed By: #### H EPATIC, CBC, LIPASE, BMP #### [address] RBC (Bld) [#/Vol] 4.59 10*6/uL Normal 3.60-5.00 [facility] Comment on above: Performed By: #### H EPATIC, CBC, LIPASE, BMP #### [address] WBC (Bld) [#/Vol] 9.8 10*3/uL Normal 3.8-11.6 [facility] Comment on above: Performed By: #### H EPATIC, CBC, LIPASE, BMP #### [address] Dipstick and Microscopicon 1 10-20-2023 Appearance (U) Cloudy Critically abnormal Clear [facility] Comment on above: Order Comment: Name Collection Type:: Clean-Voided Midstream Performed By: #### C MP, BILID, CBC #### [address] Bacteria,Urine Rare Normal None Seen [facility] Comment on above: Order Comment: Name Collection Type:: Clean-Voided Midstream Performed By: #### C MP, BILID, CBC #### [address] Bilirubin,Urine Negative Normal Negative [facility] Comment on above: Order Comment: Name Collection Type:: Clean-Voided Midstream Performed By: #### C MP, BILID, CBC #### [address] Color (U) Light-Yellow Normal Yellow [facility] Comment on above: Order Comment: Name Collection Type:: Clean-Voided Midstream Performed By: #### C MP, BILID, CBC #### [address] Glucose Ql (U) Normal Normal Normal [facility] Comment on above: Order Comment: Name Collection Type:: Clean-Voided Midstream Performed By: #### C MP, BILID, CBC #### [address] Hyaline Casts,Urine None Normal 0-8 [facility] Comment on above: Order Comment: Name Collection Type:: Clean-Voided Midstream Performed By: #### C MP, BILID, CBC #### [address] Ketones Ql (U) Negative Normal Negative [facility] Comment on above: Order Comment: Name Collection Type:: Clean-Voided Midstream Performed By: #### C MP, BILID, CBC #### [address] Leukocyte esterase Test strip Ql (U) Negative Normal Negative [facility] Comment on above: Order Comment: Name Collection Type:: Clean-Voided Midstream Performed By: #### C MP, BILID, CBC #### [address] Mucus,Urine Rare Normal [facility] Comment on above: Order Comment: Name Collection Type:: Clean-Voided Midstream Result Comment: PERF ORMED BY: [place] [address] PATHOLOGIST [employer] WASTE DISPOSAL MANAGER VERITO CORONADO M.D. Performed By: #### C MP, BILID, CBC #### [address] Nitrite,Urine Negative Normal Negative [facility] Comment on above: Order Comment: Name Collection Type:: Clean-Voided Midstream Performed By: #### C MP, BILID, CBC #### [address] Occult Blood,Urine Negative Normal Negative [facility] Comment on above: Order Comment: Name Collection Type:: Clean-Voided Midstream Result Comment: PERF ORMED BY: [place] [address] PATHOLOGIST [employer] DISPOSAL MANAGER VERITO CORONADO M.D. Performed By: #### C MP, BILID, CBC #### [place] [address] [place] pH (U) 6.5 [pH] Normal 5.0-9.0 [facility] Comment on above: Order Comment: Name Collection Type:: Clean-Voided Midstream Performed By: #### C MP, BILID, CBC #### [address] Protein,Urine Negative Normal Negative [facility] Comment on above: Order Comment: Name Collection Type:: Clean-Voided Midstream Performed By: #### C MP, BILID, CBC #### [address] RBC,Urine 1 [HPF] Normal 0-4 [facility] Comment on above: Order Comment: Name Collection Type:: Clean-Voided Midstream Performed By: #### C MP, BILID, CBC #### [address] Specificy Sunshine,Urine 1.010 Normal 1.001-1.03 0 [facility] Comment on above: Order Comment: Name Collection Type:: Clean-Voided Midstream Performed By: #### C MP, BILID, CBC #### [address] Squamous Epithelial Cell,Urine 5 [HPF] High 0-2 [facility] Comment on above: Order Comment: Name Collection Type:: Clean-Voided Midstream Performed By: #### C MP, BILID, CBC #### [address] Urobilinogen,Urine Normal Normal Normal [facility] Comment on above: Order Comment: Name Collection Type:: Clean-Voided Midstream Performed By: #### C MP, BILID, CBC #### [place] [address] [place] WBC,Urine 1 [HPF] Normal 0-4 [facility] Comment on above: Order Comment: Name Collection Type:: Clean-Voided Midstream Performed By: #### C MP, BILID, CBC #### [address] ECG 12 lead ECGon 08-19-2024 ECG 12 lead ECG [facility] [place] [address] Electrocardiograph Report Signed Patient: Maida Cherry MR#: [id number] 3 : 1985 Acct:[id number] Age/Sex: 38 / F ADM Date: 08/19/24 Loc: Room: [address] [place] [address] Type: ADM INOo Attending Dr: Faith Martinez MD Ordering Provider: Malini Armando MD Date of Service: 08/19/2406/04/1018 ECG/ECG 12 lead ECG: Abdominal Pain Copies to: Test Reason : Blood Pressure : */* mmHG Vent. Rate : 77 BPM Atrial Rate : 77 BPM P-R Int : 126 ms QRS Dur : 90 ms QT Int : 394 ms P-R-T Axes : 35 50 12 degrees QTcB Int : 445 ms Normal sinus rhythm Nonspecific ST and T wave abnormality When compared with ECG of 11-Aug-2024 07:19, No significant change was found Confirmed by Malini Armando MD ([id number]) on 08/19/2024 6:47:25 PM Referred By: Electronically Signed By: Malini Armando MD Transcribed By: MUS Signed By Malini Armando MD 06/04 184 Normal [facility] Hepatic Panelon 08-19-2024 Albumin [Mass/Vol] 4.2 g/dL Normal 3.5-5.7 [facility] Comment on above: Performed By: #### C DAVEY WALLS CBC #### [address] Albumin/Globulin [Mass ratio] 1.6 {ratio} Normal [facility] Comment on above: Performed By: #### C DAVEY WALLS CBC #### [facility] [address] [place] [address] [place] ALP [Catalytic activity/Vol] 155 U/L High 34-104 [facility] Comment on above: Performed By: #### C KAVITA BILTAYLOR, CBC #### [facility] [address] [place] [id number] [place] ALT [Catalytic activity/Vol] 104 U/L High 7-52 [facility] Comment on above: Performed By: #### C KAVITA BILTAYLOR, CBC #### [facility] [address] [place] [id number] [place] AST [Catalytic activity/Vol] 139 U/L High 13-39 [facility] Comment on above: Performed By: #### C MP, BILID, CBC #### [facility] [address] Bilirubin [Mass/Vol] 0.7 mg/dL Normal 0.3-1.0 [facility] Comment on above: Performed By: #### C MP, BILID, CBC #### [facility] [address] Bilirubin,Indirect 0.4 mg/dL Normal [facility] Comment on above: Performed By: #### C MP, BILID, CBC #### [facility] [address] Bilirubin.indirect [Mass/Vol] 0.30 mg/dL High 0.03-0.18 [facility] Comment on above: Performed By: #### C MP, BILID, CBC #### [address] Globulin (S) [Mass/Vol] 2.7 g/dL Normal [facility] Comment on above: Performed By: #### C MP, BILID, CBC #### [facility] [address] Protein [Mass/Vol] 6.9 g/dL Normal 6.4-8.9 [facility] Comment on above: Performed By: #### C MP, BILID, CBC #### [address] Lactic Acidon 08-19-2024 Lactate [Moles/Vol] 0.6 mmol/L Normal 0.5-2.2 [facility] Comment on above: Result Comment: PERF ORMED BY: [place] [address] PATHOLOGIST [employer] WAST[employer] DISPOSAL MANAGER VERITO CORONADO M.D. Performed By: #### L ACTIC #### [address] Lipaseon 08-19-2024 Lipase [Catalytic activity/Vol] 24.0 U/L Normal 11.0-82.0 [facility] Comment on above: Result Comment: PERF ORMED BY: [place] [address] PATHOLOGIST [employer] DISPOSAL MANAGER VERITO CORONADO M.D. Performed By: #### C DAVEY WALLS, CBC #### [address] MR MRCPon 08-19-2024 MR MRCP [facility] [place] [address] [place] [address] MRI Report Signed Patient: Maida Cherry MR#: [id number] 3 : 1985 Acct:[id number] Age/Sex: 38 / F ADM Date: 08/19/24 Loc: Room: 2I5705-7 Type: ADM INOo Attending Dr: Faith Martinez MD Copies to: MD Faith Zimmer MD Ordering Provider: Malini Armando MD Date of Service: 08/19/24 MR/MR MRCP: evaluate for retained stone MRI OF THE ABDOMEN WITHOUT CONTRAST: MRCP CLINICAL HISTORY: Recent cholecystectomy. Right upper quadrant pain since this morning COMPARISON: CT abdomen and pelvis 08/19/2024 TECHNIQUE: Multisequence, multiplanar imaging of the abdomen was obtained without the use of IV contrast. MRCP imaging was also obtained. FINDINGS: Evaluation is suboptimal due to lack of IV contrast. The liver appears normal in contour without evidence of steatosis or intrahepatic ductal dilatation. No focal T2 abnormality is seen to suggest underlying mass. Gallbladder has been removed with expected postoperative change. No fluid collection is seen. CBD appears normal in caliber without evidence of choledocholithiasis. No evidence of pancreatic divisum. Pancreatic duct appears normal in contour. Spleen pancreas and adrenal glands appear unremarkable. Right pelvic kidney. Left kidney appears unremarkable. Abdominal aorta appears normal in caliber. No bulky lymphadenopathy or ascites. No pleural effusion. MR/MR MRCP IMPRESSION: NO ACUTE PROCESS. NO EVIDENCE OF BILIARY OBSTRUCTION. Impression dictated by: Suhail Dean Jr. DBernardinoOBernardino08/19/2024 3:02 PM Dictation Location: [facility] Transcribed By: ANUPAMA 08/19/24 1502 Dictated By: Suhail Dean Jr, DO 08/19/24 1458 Signed By: 08/19/24 1502 Normal [facility] XR chest 2V*on 08-19-2024 XR chest 2V* [facility] [place] [address] [place] [address] XRay Report Signed Patient: Maida Cherry MR#: [id number] 3 : 1985 Acct:[id number] Age/Sex: 38 / F ADM Date: 08/19/24 Loc: ER Room: Type: [facility] ER Attending Dr: Copies to: Malini Armando MD Ordering Provider: Malini Armando MD Date of Service: 08/19/24 XR/XR chest 2V*: Abdominal Pain XR chest 2V* 08/19/2024 10:19 AM SIGNS AND SYMPTOMS: Right-sided abdominal pain PROTOCOL: Frontal and lateral graphs of the chest COMPARISON: 08/11/2024 FINDINGS: The trachea is midline. The heart and mediastinal structures are within normal limits. The lung parenchyma is clear. The bony thorax is intact. Degenerative changes are noted in the thoracic spine. There is evidence of prior cholecystectomy in the right upper quadrant. XR/XR chest 2V* IMPRESSION: No acute cardiopulmonary pathology. Impression dictated by: Charli Early M.D.08/19/2024 10:42 AM Dictation Location: [place] [address] Transcribed By: ANUPAMA 08/19/24 1042 Dictated By: Charli Early II, MD 08/19/24 1040 Signed By: 08/19/24 1042 Normal [facility] Basic Metabolic Panelon Anion gap [Moles/Vol] 10.6 mmol/L Normal 6.0-15.0 [facility] Group Comment on above: Performed By: #### C DAVEY WALLS, CBC #### [place] [id number] [facility] Calcium [Mass/Vol] 8.8 mg/dL Normal 8.6-10.3 [facility] Comment on above: Performed By: #### C DAVEY WALLS, CBC #### [address] Chloride [Moles/Vol] 108 mmol/L High 98-107 [facility] Comment on above: Performed By: #### C DAVEY WALLS, CBC #### [address] CO2 [Moles/Vol] 26.7 mmol/L Normal 21.0-31.0 [facility] Comment on above: Performed By: #### C DAVEY WALLS, CBC #### [address] Creatinine [Mass/Vol] 0.67 mg/dL Normal 0.60-1.20 [facility] Comment on above: Performed By: #### C DAVEY WALLS, CBC #### [place] [address] [place] Creatinine Clr Calc Pharmacy 123.65 Normal [facility] Comment on above: Result Comment: PERF ORMED BY: [place] [address] PATHOLOGIST [employer]POSAL MANAGER VERITO CORONADO M.D. Performed By: #### C DAVEY WALLS, CBC #### [address] GFR/1.73 sq M.predicted MDRD (S/P/Bld) [Vol rate/Area] mL/min/{1.73_m2} Normal [facility] Comment on above: Performed By: #### C DAVEY WALLS, CBC #### [address] Glucose [Mass/Vol] 76 mg/dL Normal 70-100 [facility] Comment on above: Result Comment: [place] Glucose Reference Range is dependent on time and content of last meal. Glucose of more than 200 mg/dL in a nonstressed, ambulatory subject supports the diagnosis of Diabetes Mellitus. ADA recommended reference range Performed By: #### C DAVEY WALLS, CBC #### [place] [address] [place] Potassium [Moles/Vol] 4.3 mmol/L Normal 3.5-5.1 [facility] Comment on above: Performed By: #### C DAVEY WALLS, CBC #### [facility] [address] Sodium [Moles/Vol] 141 mmol/L Normal 136-145 [facility] Comment on above: Performed By: #### C DAVEY WALLS, CBC #### [facility] [address] Urea nitrogen [Mass/Vol] 6 mg/dL Low 7-25 [facility] Comment on above: Performed By: #### C DAVEY WALLS, CBC #### [facility] [address] Basic metabolic 1998 panelon 08-12-2024 Anion gap [Moles/Vol] 10.6 mmol/L 6.0 - 15.0 meq/L [facility] Calcium [Mass/Vol] 8.8 mg/dL 8.6 - 10. 3 mg/dL [facility] Chloride [Moles/Vol] 108 mmol/L High 98 - 10 7 mmol/L [facility] CO2 [Moles/Vol] 26.7 mmol/L 21.0 - 31.0 mmol/L [facility] Creatinine (U) [Mass/Vol] 0.67 mg/dL 0.60 - 1.20 mg/dL [facility] CREATININE CLR CALC PHARMACY 123.65 [facility] ESTIMATED GFR mL/Min [facility] Glucose [Mass/Vol] 76 mg/dL 70 - 100 mg/dL [facility] Comment on above: Random Glucose Refer ence Range is dependent on time and content of last meal. Glucose of more than 200 mg/dL in a nonstressed, ambulatory subject supports the diagnosis of Diabetes Mellitus. ADA recommended reference range Potassium [Moles/Vol] 4.3 mmol/L 3.5 - 5.1 mmol/L [facility] Sodium [Moles/Vol] 141 mmol/L 136 - 145 mmol/L [facility] Urea nitrogen [Mass/Vol] 6 mg/dL Low 7 - 25 mg/dL [facility] HEMOGRAM CBC WITHOUT DIFF (F [facility])on 08-12-2024 Erythrocyte distribution width (RBC) [Ratio] 12.2 % 11.9 - 15.3 % [facility] Hematocrit (Bld) [Volume fraction] 36.7 % 34.0 - 46.4 % [facility] Hemoglobin (Bld) [Mass/Vol] 12.5 g/dL 11.8 - 15.4 g/dL [facility] MCH (RBC) [Entitic mass] 30.6 pg 24.7 - 34.3 pg [facility] MCHC (RBC) [Mass/Vol] 34.1 g/dL 32.0 - 35.0 g/dL [facility] MCV (RBC) [Entitic vol] 89.8 fL 80 - 100 fL [facility] Platelet mean volume (Bld) [Entitic vol] 7.9 fL 6.3 - 10.7 fL [facility] Platelets (Bld) [#/Vol] 266 10*3/uL 150 - 450 10*3/uL [facility] RBC LM.HPF (Urine sed) [#/Area] 4.08 10*6/uL 3.60 - 5.00 10*6/uL [facility] WBC LM.HPF (Urine sed) [#/Area] 6.6 10*3/uL 3.8 - 11.6 10*3/uL [facility] Hemogram CBC Without Diffon 08-12-2024 Erythrocyte distribution width (RBC) [Ratio] 12.2 % Normal 11.9-15.3 [facility] Comment on above: Performed By: #### C MP, BILID, CBC #### [facility] [address] Hematocrit (Bld) [Volume fraction] 36.7 % Normal 34.0-46.4 [facility] Comment on above: Performed By: #### C MP, BILID, CBC #### [facility] [address] [place] [id number] [facility] Hemoglobin (Bld) [Mass/Vol] 12.5 g/dL Normal 11.8-15.4 [facility] Comment on above: Performed By: #### C MP, BILID, CBC #### [facility] [address] [place] [id number] [facility] MCH (RBC) [Entitic mass] 30.6 pg Normal 24.7-34.3 [facility] Comment on above: Performed By: #### C MP, BILID, CBC #### [facility] [address] MCV (RBC) [Entitic vol] 89.8 fL Normal 80-100 [facility] Comment on above: Performed By: #### C MP, BILID, CBC #### [facility] [address] Mean Corpuscular HGB Conc 34.1 g/dL Normal 32.0-35.0 [facility] Comment on above: Performed By: #### C MP, BILID, CBC #### [facility] [address] Platelet mean volume (Bld) [Entitic vol] 7.9 fL Normal 6.3-10.7 [facility] Comment on above: Result Comment: PERF ORMED BY: [place] [address] PATHOLOGIST [employer] MANAGER VERITO CORONADO M.D. Performed By: #### C MP, BILID, CBC #### [facility] [address] Platelets (Bld) [#/Vol] 266 10*3/uL Normal 150-450 [facility] Comment on above: Performed By: #### C MP, BILID, CBC #### [facility] [address] RBC (Bld) [#/Vol] 4.08 10*6/uL Normal 3.60-5.00 [facility] Comment on above: Performed By: #### C MP, BILID, CBC #### [facility] [address] WBC (Bld) [#/Vol] 6.6 10*3/uL Normal 3.8-11.6 [facility] Comment on above: Performed By: #### C MP, BILID, CBC #### [facility] [address] Hepatic Panelon 12-02-2024 Albumin [Mass/Vol] 3.7 g/dL Normal 3.5-5.7 [facility] Comment on above: Performed By: #### C MP, BILID, CBC #### [address] Albumin/Globulin [Mass ratio] 1.9 {ratio} Normal [facility] Comment on above: Performed By: #### C MP, BILID, CBC #### [address] ALP [Catalytic activity/Vol] 80 U/L Normal 34-104 [facility] Comment on above: Performed By: #### C MP, BILID, CBC #### [address] ALT [Catalytic activity/Vol] 175 U/L High 7-52 [facility] Comment on above: Performed By: #### C MP, BILID, CBC #### [address] AST [Catalytic activity/Vol] 96 U/L High 13-39 [facility] Comment on above: Performed By: #### C MP, BILID, CBC #### [address] Bilirubin [Mass/Vol] 0.5 mg/dL Normal 0.3-1.0 [facility] Comment on above: Performed By: #### C MP, BILID, CBC #### [address] Bilirubin,Indirect 0.4 mg/dL Normal [facility] Comment on above: Performed By: #### C MP, BILID, CBC #### [address] Bilirubin.indirect [Mass/Vol] 0.10 mg/dL Normal 0.03-0.18 [facility] Comment on above: Performed By: #### C MP, BILID, CBC #### [address] Globulin (S) [Mass/Vol] 1.9 g/dL Normal [facility] Comment on above: Performed By: #### C KAVITA BILTAYLOR, CBC #### [facility] [address] Protein [Mass/Vol] 5.6 g/dL Low 6.4-8.9 [facility] Comment on above: Performed By: #### C KAVITA BILID, CBC #### [facility] [address] Hepatic function 2000 panelo n 08-12-2024 Albumin [Mass/Vol] 3.7 g/dL 3.5 - 5.7 g/dL [facility] Albumin/Globulin [Mass ratio] 1.9 {ratio} [facility] ALP [Catalytic activity/Vol] 80 U/L 34 - 104 U/L [facility] ALT [Catalytic activity/Vol] 175 U/L High 7 - 52 U/L [facility] AST [Catalytic activity/Vol] 96 U/L High 13 - 39 U/L [facility] Bilirubin [Mass/Vol] 0.5 mg/dL 0.3 - 1 .0 mg/dL [facility] BILIRUBIN,INDIRECT 0.4 mg/dL [facility] Bilirubin.indirect [Mass/Vol] 0.1 mg/dL 0.03 - 0.18 mg/dL [facility] Globulin (S) [Mass/Vol] 1.9 g/dL [facility] Protein [Mass/Vol] 5.6 g/dL Low 6.4 - 8.9 g/dL [facility] Antonio 08-12-2024 L ------ Specimen: [id number] Received: 08/13/24 Status: BEL Dinesh Num: [id number] Spec Type: Surgical Subm Dr: Chandan Bunch MD Tissues: A Gallbladder (GALLBLADDER) B Hernia Sac (UMBILICAL HERNIA SAC) Procedures: HE/2, Gross/Micro L3, Gross/Micro L2 Age/ Patient Sex Location Account Attending Physician Maida Cherry 38/F 4N [id number] Ed Whittington DO SPEC NUM: [id number] RECD: 08/13/24 STATUS: BEL SU NUM: [id number] ELIZA: 08/12/24 [facility] DR: Chandan Bunch MD ENTERED: 08/13/24 [facility] DR: EJRE TYPE: Surgical DEPT: S ORDERED: HE/2, Gross/Micro L3, Gross/Micro L2 ORDERED: HE/2, Gross/Micro L3, Gross/Micro L2 Pathological Diagnosis A. Gallbladder, cholecystectomy: Chronic cholecystitis and cholelithiasis. B. Hernia sac, umbilical, resection: Features consistent with hernia sac. Clinical Information Acute cholecystitis Gross Description Part A is received in formalin labeled with the patients name, date of , and gallbladder is and intact gallbladder, 9.5 x 3.5 x 2.5 cm in aggregate with a 0.3 cm cystic duct closed by 2 metallic clips. A periductal lymph node is not identified. The serosa is malhotra-blue, smooth and glistening; the hepatic bed is rough and irregular. The gallbladder is opened to exude a cerna-green, viscous bile with numerous (at least 20), cerna- yellow, granular calculi (ranging from 0.2 to 0.6 cm in greatest dimension), 3 x 2 x 0.5 cm in aggregate. The mucosa is cerna-green and velvety with yellow striations. The wall of the gallbladder ranges from 0.1 to 0.3 cm in thickness. Core Man sections are submitted in a single cassette. (, ss, [id number]) Part B is received in formalin labeled with the patients name, date of , and umbilical hernia sac are fragments of partially encapsulated adipose tissue, 4.3 x 2.5 x 1.5 cm in aggregate. The capsular surfaces are cerna-pink, membranous, smooth and glistening. Serial sections reveal malhotra-pink to yellow-cerna, glistening, and uniform cut surfaces. Specimen: [id number] Received: 08/13/24 Status: BEL Su Num: [id number] Spec Type: Surgical Subm Dr: Chandan Bunch MD Tissues: A Gallbladder (GALLBLADDER) B Hernia Sac (UMBILICAL HERNIA SAC) Procedures: HE/2, Gross/Micro L3, Gross/Micro L2 Patient: Maida Cherry [id number] (Continued) Specimen: [id number] Received: 08/13/24 (Continued) Gross Description (Continued) Signed (signature on file) Verito Coronado MD 08/14/24 1501 Specimen: [id number] Received: 08/13/24 Status: BEL Su Num: [id number] Spec Type: Surgical Subm Dr: Chandan Bunch MD Tissues: A Gallbladder (GALLBLADDER) B Hernia Sac (UMBILICAL HERNIA SAC) Procedures: HE/Carmelo, Jayson/Micro L3, Gross/Micro L2 Patient: Maida Cherry [id number] (Continued) Specimen: [id number] Received: 08/13/24 (Continued) Gross Description (Continued) Core Man sections are submitted in a single cassette. (1, , [id number] B) CPT Codes 14240 [id number] Specimen: [id number] Received: 08/13/24 Status: BEL Su Num: [id number] Spec Type: Surgical Subm Dr: Chandan Bunch MD Tissues: A Gallbladder (GALLBLADDER) B Hernia Sac (UMBILICAL HERNIA SAC) Procedures: HE/2, Gross/Micro L3, Gross/Micro L2 Patient: Maida Cherry [id number] (Continued) Signed (signature on file) Verito Coronado MD 08/14/24 1501 Normal [facility] No Panel Informationon 08-12 Interpretation and review of laboratory results Abnormal [facility] Healthcare [facility] Coagulation Profileon 2023 aPTT Coag (Bld) [Time] 28.5 s Normal 25.1-36.5 Th [facility] Comment on above: Result Comment: A he matocrit value greater than 55% may lead to inaccurate results in coagulation testing. Patients having hematocrit values >55% require a special collection tube for coagulation studies. Please contact the laboratory at [phone] for redraw instructions. PERFORMED BY: [address] [place] [address] PATHOLOGIST [employer] DISPOSAL MANAGER VERITO CORONADO M.D. Performed By: #### H EPACUTE #### [facility] , INR Coag (PPP) [Relative time] 1.0 {INR} Normal [facility] Comment on above: Result Comment: INR Therapeutic Range A) Pre- and Peroperative OAT started two weeks before surgery. NOT HIP SURGERY: 1.5 - 2.5 HIP SURGERY: 2 - 3 B) Primary and secondary prevention of venous THROMBOSIS: 2 - 3 C) Active venous thrombosis, pulmonary embolism and prevention of recurrent venous thrombosis: 2 - 3 D) Prevention of arterial thromboembolism including patients with mechanical heart valves: 3 - 4.5 Performed By: #### H EPACUTE #### [facility] , PT Coag (PPP) [Time] 11.3 s Normal 9.0-12.9 [facility] Comment on above: Result Comment: A he matocrit value greater than 55% may lead to inaccurate results in coagulation testing. Patients having hematocrit values >55% require a special collection tube for coagulation studies. Please contact the laboratory at [phone] for redraw instructions. Performed By: #### H EPACUTE #### [facility] , Complete Blood Count Auto Di ffon 08-11-2024 Basophils (Bld) [#/Vol] 0.1 10*3/uL Normal 0.0-0.2 [facility] Comment on above: Result Comment: PERF ORMED BY: [facility] [address] PATHOLOGIST [employer] DISPOSAL MANAGER VERITO CORONADO M.D. Performed By: #### H EPACUTE #### [facility] , Basophils/100 WBC (Bld) 0.9 % Normal . [facility] Comment on above: Performed By: #### H EPACUTE #### [facility] , Eosinophils (Bld) [#/Vol] 0.0 10*3/uL Normal 0.0-0.45 [facility] Comment on above: Performed By: #### H EPACUTE #### [facility] , Eosinophils/100 WBC (Bld) 0.5 % Normal . [facility] Comment on above: Performed By: #### H EPACUTE #### [facility] , Erythrocyte distribution width (RBC) [Ratio] 12.6 % Normal 11.9-15.3 [facility] Comment on above: Performed By: #### H EPACUTE #### [facility] , Hematocrit (Bld) [Volume fraction] 40.4 % Normal 34.0-46.4 [facility] Comment on above: Performed By: #### H EPACUTE #### [facility] , Hemoglobin (Bld) [Mass/Vol] 13.6 g/dL Normal 11.8-15.4 [facility] Comment on above: Performed By: #### H EPACUTE #### [facility] , Lymphocytes (Bld) [#/Vol] 2.6 10*3/uL Normal 1.00-4.8 [facility] Comment on above: Performed By: #### H EPACUTE #### [facility] , Lymphocytes/100 WBC (Bld) 41.0 % Normal . [facility] Comment on above: Performed By: #### H EPACUTE #### [facility] , MCH (RBC) [Entitic mass] 30.3 pg Normal 24.7-34.3 [facility] Comment on above: Performed By: #### H EPACUTE #### [facility] , MCV (RBC) [Entitic vol] 89.7 fL Normal 80-100 [facility] Comment on above: Performed By: #### H EPACUTE #### [facility] , Mean Corpuscular HGB Conc 33.8 g/dL Normal 32.0-35.0 [facility] Comment on above: Performed By: #### H EPACUTE #### [facility] , Monocytes (Bld) [#/Vol] 0.4 10*3/uL Normal 0.0-0.8 [facility] Comment on above: Performed By: #### H EPACUTE #### [facility] , Monocytes/100 WBC (Bld) 6.2 % Normal . [facility] Comment on above: Performed By: #### H EPACUTE #### [facility] , Neutrophils (Bld) [#/Vol] 3.3 10*3/uL Normal 1.8-7.7 [facility] Comment on above: Performed By: #### H EPACUTE #### [facility] , Neutrophils/100 WBC (Bld) 51.4 % Normal . [facility] Comment on above: Performed By: #### H EPACUTE #### [facility] , NRBC% 0.1 /100{WBC} Normal 0-0.5 [facility] Comment on above: Performed By: #### H EPACUTE #### [facility] , Platelet mean volume (Bld) [Entitic vol] 8.1 fL Normal 6.3-10.7 [facility] Comment on above: Performed By: #### H EPACUTE #### [facility] , Platelets (Bld) [#/Vol] 236 10*3/uL Normal 150-450 [facility] Comment on above: Performed By: #### H EPACUTE #### [facility] , RBC (Bld) [#/Vol] 4.50 10*6/uL Normal 3.60-5.00 [facility] Comment on above: Performed By: #### H EPACUTE #### [facility] , WBC (Bld) [#/Vol] 6.4 10*3/uL Normal 3.8-11.6 [facility] Comment on above: Performed By: #### H EPACUTE #### [facility] , Comprehensive Metabolic Pane antonio 08-11-2024 Albumin [Mass/Vol] 4.0 g/dL Normal 3.5-5.7 [facility] Comment on above: Performed By: #### H EPACUTE #### [facility] , Albumin/Globulin [Mass ratio] 1.6 {ratio} Normal [facility] Comment on above: Performed By: #### H EPACUTE #### [facility] , ALP [Catalytic activity/Vol] 92 U/L Normal 34-104 [facility] Comment on above: Performed By: #### H EPACUTE #### [facility] , ALT [Catalytic activity/Vol] 300 U/L High 7-52 [facility] Comment on above: Performed By: #### H EPACUTE #### [facility] , Anion gap [Moles/Vol] 11.2 mmol/L Normal 6.0-15.0 [facility] Comment on above: Performed By: #### H EPACUTE #### [facility] , AST [Catalytic activity/Vol] 443 U/L High 13-39 [facility] Comment on above: Performed By: #### H EPACUTE #### [facility] , Bilirubin [Mass/Vol] 0.5 mg/dL Normal 0.3-1.0 [facility] Comment on above: Performed By: #### H EPACUTE #### [facility] , Calcium [Mass/Vol] 8.7 mg/dL Normal 8.6-10.3 [facility] Comment on above: Performed By: #### H EPACUTE #### [facility] , Chloride [Moles/Vol] 107 mmol/L Normal 98-107 [facility] Comment on above: Performed By: #### H EPACUTE #### [facility] , CO2 [Moles/Vol] 25.6 mmol/L Normal 21.0-31.0 [facility] Comment on above: Performed By: #### H EPACUTE #### [facility] , Creatinine [Mass/Vol] 0.72 mg/dL Normal 0.60-1.20 [facility] Comment on above: Performed By: #### H EPACUTE #### [facility] , Creatinine Clr Calc Pharmacy 115.06 Normal [facility] Comment on above: Performed By: #### H EPACUTE #### [facility] , GFR/1.73 sq M.predicted MDRD (S/P/Bld) [Vol rate/Area] mL/min/{1.73_m2} Normal [facility] Comment on above: Performed By: #### H EPACUTE #### [facility] , Globulin (S) [Mass/Vol] 2.5 g/dL Normal [facility] Comment on above: Performed By: #### H EPACUTE #### [facility] , Glucose [Mass/Vol] 95 mg/dL Normal 70-100 [facility] Comment on above: Result Comment: [place] Glucose Reference Range is dependent on time and content of last meal. Glucose of more than 200 mg/dL in a nonstressed, ambulatory subject supports the diagnosis of Diabetes Mellitus. ADA recommended reference range Performed By: #### H EPACUTE #### [facility] , Potassium [Moles/Vol] 3.8 mmol/L Normal 3.5-5.1 [facility] Comment on above: Performed By: #### H EPACUTE #### [facility] , Protein [Mass/Vol] 6.5 g/dL Normal 6.4-8.9 [facility] Comment on above: Performed By: #### H EPACUTE #### [facility] , Sodium [Moles/Vol] 140 mmol/L Normal 136-145 [facility] Comment on above: Performed By: #### H EPACUTE #### [facility] , Urea nitrogen [Mass/Vol] 11 mg/dL Normal 7-25 [facility] Comment on above: Performed By: #### H EPACUTE #### [facility] , ECG 12 lead ECGon 08-11-2024 ECG 12 lead ECG [facility] [place] [address] Electrocardiograph Report Signed Patient: Maida Cherry MR#: [id number] 3 : 1985 Acct:[id number] Age/Sex: 38 / F ADM Date: 08/11/24 Loc: Room: [address] [place] [address] Type: ADM IN Attending Dr: Ana Marquez MD Ordering Provider: Candice Velasquez MD Date of Service: 08/11/2410/04/499 ECG/ECG 12 lead ECG: Preoperative evaluation Copies to: Test Reason : Blood Pressure : */* mmHG Vent. Rate : 56 BPM Atrial Rate : 56 BPM P-R Int : 148 ms QRS Dur : 92 ms QT Int : 448 ms P-R-T Axes : 23 28 32 degrees QTcB Int : 432 ms Sinus bradycardia Otherwise normal ECG When compared with ECG of 26-Jul-2023 16:55, Vent. rate has decreased by 41 bpm Confirmed by Justin Mason ([id number]) on 08/11/2024 2:50:55 PM Referred By: Electronically Signed By: Justin Mason Transcribed By: MUS Signed By Justin Mason MD 08/11/24 1451 Normal [facility] Hepatitis Acute Panelon HBsAg Screen Negative Normal Negative [facility] Comment on above: Performed By: #### H EPACUTE #### [facility] , Hepatitis A Antibody IgM Negative Normal Negative [facility] Comment on above: Result Comment: A ne gative anti-HAV IgM result suggests no recent or current HAV infection. Performed By: #### H EPACUTE #### [facility] , Hepatitis B Core Antibody IgM Negative Normal Negative [facility] Comment on above: Performed By: #### H EPACUTE #### [facility] , Hepatitis C Virus Antibody Non-Reactive Normal Non Reactive [facility] Comment on above: Performed By: #### H EPACUTE #### [facility] , Interpretation Hepatitis C Comment Normal . [facility] Comment on above: Result Comment: Not infected with HCV unless early or acute infection is suspected (which may be delayed in an immunocompromised individual), or other evidence exists to indicate HCV infection. Performed at: [facility] [place] [address] [id number] Review Rn: Nicholas Hughes PhD, Phone: [phone] PERFORMED BY: [place] [id number] PATHOLOGIST [employer] VERITO CORONADO M.D. Performed By: #### H EPACUTE #### [facility] , Lipaseon 08-11-2024 Lipase [Catalytic activity/Vol] 21.0 U/L Normal 11.0-82.0 [facility] Comment on above: Result Comment: PERF ORMED BY: [place] [id number] PATHOLOGIST [employer]POS[employer] MANAGER VERITO CORONADO M.D. Performed By: #### H EPACUTE #### [facility] , Magnesiumon 08-11-2024 Magnesium [Mass/Vol] 1.9 mg/dL Normal 1.9-2.7 [facility] Comment on above: Performed By: #### H EPACUTE #### [facility] , XR chest 1V portableon 08-11 XR chest [address]V [address] [facility] [place] [address] XRay Report Signed Patient: Maida Cherry MR#: [id number] 3 : 1985 Acct:[id number] Age/Sex: 38 / F ADM Date: 08/11/24 Loc: Room: [address] [place] [address] Type: ADM IN Attending Dr: Ana Marquez MD Copies to: MD Ana Stone MD Ordering Provider: Candice Velasquez MD Date of Service: 08/11/24 XR/XR chest 1V portable: preop XR chest 1V portable 08/11/2024 3:48 AM SIGNS AND SYMPTOMS: preop PROTOCOL: Frontal radiograph of the chest COMPARISON: 08/09/2023 FINDINGS: The trachea is midline. The heart and mediastinal structures are within normal limits. The lung parenchyma is clear. The bony thorax is intact. Degenerative changes are noted in the shoulders and thoracic spine. XR/XR chest 1V portable IMPRESSION: No acute cardiopulmonary pathology. Impression dictated by: Charli Early M.D.08/11/2024 8:36 AM Dictation Location: [place] [address] Transcribed By: [facility] 08/11/24835 Dictated By: Charli Early II, MD 08/11/24832 Signed By: 08/11/24835 Normal [facility] XR elbow LT min 3V*on 2023 XR elbow LT min 3V* [facility] [place] [address] [place] [address] XRay Report Signed Patient: Maida Cherry MR#: [id number] 3 : 1985 Acct:[id number] Age/Sex: 38 / F ADM Date: 10/27/23 Loc: XDUCLY Room: Type: [facility] Attending Dr: Adelaide EDUARDO Copies to: JAYCE Worrell Ordering Provider: JAYCE Worrell Date of Service: 10/27/23 XR/XR elbow LT min 3V*: LEFT ELBOW PAIN LEFT ELBOW - 4 VIEWS CLINICAL HISTORY: Left elbow pain for the past 3 weeks. No injury at that time the patient fell going up stairs yesterday. Elbow pain posteriorly. COMPARISON: None AP, lateral and both oblique views were obtained. There is no evidence of fracture or dislocation. An exostosis is visualized at the volar distal humeral shaft. There is slight elevation of the anterior fat pad which could indicate a small effusion. No soft tissue swelling is noted. XR/XR elbow LT min 3V* IMPRESSION: HUMERAL SHAFT EXOSTOSIS. POTENTIAL ELBOW EFFUSION, WITHOUT OBVIOUS ACUTE BONY INJURY. FOLLOW-UP IS RECOMMENDED, SYMPTOMS WARRANT. Impression dictated by: Nga Gonzalez M.D.10/27/2023 12:26 PM Dictation Location: [place] [address] Transcribed By: [facility] 10/27/23 1226 Dictated By: Nga Gonzalez MD 10/27/23 1222 Signed By: 10/27/23 1226 Normal [facility] HCG ( test) IAzaira d Ql (U)Ordered By: Gwyn Momin on 09-06-2023 HCG ( test) Ql (U) Negative [facility] Basophils Auto (Bld) [#/Vol] Ordered By: Alysa Jiménez on 08-23-2023 Basophils (Bld) [#/Vol] 0.1 10*3/uL 0.0-0.2 [facility] Basophils/100 WBC Auto (Bld) Ordered By: Alysa Jiménez on 08-23-2023 Basophils/100 WBC (Bld) 0.8 % . [facility] Eosinophils Auto (Bld) [#/Vo l]Ordered By: Alysa Jiménez on 08-23-2023 Eosinophils (Bld) [#/Vol] 0.4 10*3/uL 0.0-0.45 [facility] Eosinophils/100 WBC Auto (Bl d)Ordered By: Alysa Jiménez on 08-23-2023 Eosinophils/100 WBC (Bld) 3.9 % . [facility] Erythrocyte distribution wid th Auto (RBC) [Ratio]Ordered By: Alysa Jiménez on 08-23-2023 Erythrocyte distribution width (RBC) [Ratio] 13.6 % 11.9-15.3 [facility] Hematocrit Auto (Bld) [Volum e fraction]Ordered By: Alysa Jiménez on 08-23-2023 Hematocrit (Bld) [Volume fraction] 37.7 % 34.0-46.4 [facility] Hemoglobin [Mass/volume] in BloodOrdered By: Alysa Jiménez on 08-23-2023 Hemoglobin (Bld) [Mass/Vol] 13.0 g/dL 11.8-15.4 [facility] Leukocytes [#/volume] correc danielito for nucleated erythrocytes in Blood by Automated counOrdered By: Alysa Jiménez on 08-23-2023 WBC corrected for nucl RBC Auto (Bld) [#/Vol] 10.9 10*3/uL 3.8-11.6 [facility] Lymphocytes Auto (Bld) [#/Vo l]Ordered By: Alysa Jiménez on 08-23-2023 Lymphocytes (Bld) [#/Vol] 5.0 10*3/uL 1.00-4.8 [facility] Lymphocytes/100 WBC Auto (Bl d)Ordered By: Alysa Jiménez on 08-23-2023 Lymphocytes/100 WBC (Bld) 45.5 % . [facility] MCH Auto (RBC) [Entitic mass ]Ordered By: Alysa Jiménez on 08-23-2023 MCH (RBC) [Entitic mass] 31.8 pg 24.7-34.3 [facility] MCHC Auto (RBC) [Mass/Vol]Or dered By: Alysa Jiménez on 08-23-2023 MCHC (RBC) [Mass/Vol] 34.4 g/dL 32.0-35.0 [facility] MCV Auto (RBC) [Entitic vol] Ordered By: Alysa Jiménez on 08-23-2023 MCV (RBC) [Entitic vol] 92.5 fL 80-100 [facility] Monocytes Auto (Bld) [#/Vol] Ordered By: Alysa Jiménez on 08-23-2023 Monocytes (Bld) [#/Vol] 0.7 10*3/uL 0.0-0.8 [facility] Monocytes/100 WBC Auto (Bld) Ordered By: Alysa Jiménez on 08-23-2023 Monocytes/100 WBC (Bld) 6.8 % . [facility] Neutrophils Auto (Bld) [#/Vo l]Ordered By: Alysa Jiménez on 08-23-2023 Neutrophils (Bld) [#/Vol] 4.7 10*3/uL 1.8-7.7 [facility] Neutrophils/100 WBC Auto (Bl d)Ordered By: Alysa Jiménez on 08-23-2023 Neutrophils/100 WBC (Bld) 43.0 % . [facility] Nucleated erythrocytes [Pres ence] in Blood by Automated countOrdered By: Alysa Jiménez on 08-23-2023 Nucleated RBC Auto Ql (Bld) 0.5 /100{WBC} 0-0.5 [facility] Platelet adequacy [Presence] in Blood by Light microscopyOrdered By: Alysa Jiménez on 08-23-2023 Platelets LM Ql (Bld) Increased Normal [facility] Platelet mean volume Auto (B ld) [Entitic vol]Ordered By: Alysa Jiménez on 08-23-2023 Platelet mean volume (Bld) [Entitic vol] 7.7 fL 6.3-10.7 [facility] Platelet morphology finding [Identifier] in BloodOrdered By: Alysa Jiménez on 08-23-2023 Platelet morphology finding Nom (Bld) Normal Normal [facility] Platelets Auto (Bld) [#/Vol] Ordered By: Alysa Jiménez on 08-23-2023 Platelets (Bld) [#/Vol] 434 10*3/uL 150-450 [facility] RBC Auto (Bld) [#/Vol]Ordere d By: Alysa Jiménez on 08-23-2023 RBC (Bld) [#/Vol] 4.08 10*6/uL 3.60-5.00 [facility] RBC morphologyOrdered By: Louis Jiménez on 08-23-2023 RBC morphology finding Nom (Bld) Normal Normal [facility] WBC Auto (Bld) [#/Vol]Ordere d By: Alysa Jiménez on 08-23-2023 WBC (Bld) [#/Vol] 11.9 10*3/uL 3.8-11.6 [facility] Aerobic cultureOrdered By: Yessenia Mohan on 08-09-2023 Bacteria identified Aer cx Nom (Unsp spec) 2 Days [facility] Automated erythrocytes count in urine sediment (number/area)Ordered By: Harry Mohan on 08-09-2023 RBC Auto (Urine sed) [#/Area] 1-2 [HPF] 0-4 [facility] Automated leukocytes count i n urine sediment (number/area)Ordered By: Harry Mohan on 08-09-2023 WBC Auto (Urine sed) [#/Area] 3-4 [HPF] 0-4 [facility] Basophils Auto (Bld) [#/Vol] Ordered By: Harry Mohan on 08-09-2023 Basophils (Bld) [#/Vol] 0.0 10*3/uL 0.0-0.2 [facility] Basophils/100 WBC Auto (Bld) Ordered By: Harry Mohan on 08-09-2023 Basophils/100 WBC (Bld) 0.2 % . [facility] Bilirubin Test strip Ql (U)O rdered By: Harry Mohan on 08-09-2023 Bilirubin Ql (U) Negative Negative [facility] C reactive protein [Mass/vol ume] in Serum or PlasmaOrdered By: Harry Mohan on 08-09-2023 CRP [Mass/Vol] 1.7 mg/dL 0.0-0.5 [facility] Color Auto (U)Ordered By: Do tg Mohan on 08-09-2023 Color (U) Yellow Yellow [facility] Eosinophils Auto (Bld) [#/Vo l]Ordered By: Harry Mohan on 08-09-2023 Eosinophils (Bld) [#/Vol] 0.1 10*3/uL 0.0-0.45 [facility] Eosinophils/100 WBC Auto (Bl d)Ordered By: Harry Elliskenneth on 08-09-2023 Eosinophils/100 WBC (Bld) 1.5 % . [facility] Erythrocyte distribution wid th Auto (RBC) [Ratio]Ordered By: Harry Mohan on 08-09-2023 Erythrocyte distribution width (RBC) [Ratio] 13.9 % 11.9-15.3 [facility] Erythrocyte sedimentation ra te by Photometric methodOrdered By: Harry Mohan on 08-09-2023 ESR Photometric method (Bld) [Velocity] 7 mm/hr 0-19 [facility] Fibrin D-dimer [Presence] in Platelet poor plasma by Latex agglutinationOrdered By: Harry Mohan on 08-09-2023 Fibrin D-dimer LA Ql (PPP) 311 ng/mL 0-243 [facility] Comment on above: The reference range for D-dimer is <243 ng/mL D-dimer units.D-dimer results must be used in conjunction with a clinicalpretest probability (PTP) assessment model for deep veinthrombosis (DVT) and pulmonary embolism (PE). Results <230ng/mL d-dimer units can be used as a negative predictor inpatients with low or moderate probability for DVT/PE.Results above the exclusion threshold of 230 ng/ml D-dimerunits for DVT/PE may indicate the need for furtherdiagnostic testing.D-Dimer can be increased in hospitalized patients due toco-morbid conditions.A hematocrit value greater than 55% may lead to inaccurate results in coagulation testing. Patients having hematocrit values >55% require a special collection tube for coagulation studies. Please contact the laboratory at [phone] for redraw instructions. Gram stain for investigation of transfusion reactionOrdered By: Harry Mohan on 08-09-2023 Microscopic observation Gram stain Nom (Unsp spec) [facility] Microscopic observation Gram stain Nom (Unsp spec) 2 Days [facility] Hematocrit Auto (Bld) [Volum e fraction]Ordered By: Harry Mohan on 08-09-2023 Hematocrit (Bld) [Volume fraction] 37.1 % 34.0-46.4 [facility] Hemoglobin [Mass/volume] in BloodOrdered By: Harry Mohan on 08-09-2023 Hemoglobin (Bld) [Mass/Vol] 12.8 g/dL 11.8-15.4 [facility] Ketones Auto test strip (U) [Mass/Vol]Ordered By: Harry Mohan on 08-09-2023 Ketones (U) [Mass/Vol] Negative [facility] - UrinalysisOrder ed By: Harry Mohan on 08-09-2023 Hyaline casts LM Ql (Urine sed) None seen [LPF] 0-8 [facility] Leukocytes [#/volume] correc danielito for nucleated erythrocytes in Blood by Automated counOrdered By: Harry Mohan on 08-09-2023 WBC corrected for nucl RBC Auto (Bld) [#/Vol] 8.3 10*3/uL 3.8-11.6 [facility] Lymphocytes Auto (Bld) [#/Vo l]Ordered By: Harry Mohan on 08-09-2023 Lymphocytes (Bld) [#/Vol] 3.7 10*3/uL 1.00-4.8 [facility] Lymphocytes/100 WBC Auto (Bl d)Ordered By: Harry Mohan on 08-09-2023 Lymphocytes/100 WBC (Bld) 44.3 % . [facility] MCH Auto (RBC) [Entitic mass ]Ordered By: Harry Mohan on 08-09-2023 MCH (RBC) [Entitic mass] 32.2 pg 24.7-34.3 [facility] MCHC Auto (RBC) [Mass/Vol]Or dered By: Harry Mohan on 08-09-2023 MCHC (RBC) [Mass/Vol] 34.6 g/dL 32.0-35.0 [facility] MCV Auto (RBC) [Entitic vol] Ordered By: Harry Mohan on 08-09-2023 MCV (RBC) [Entitic vol] 93.0 fL 80-100 [facility] Monocytes Auto (Bld) [#/Vol] Ordered By: Harry Mohan on 08-09-2023 Monocytes (Bld) [#/Vol] 0.5 10*3/uL 0.0-0.8 [facility] Monocytes/100 WBC Auto (Bld) Ordered By: Harry Mohan on 08-09-2023 Monocytes/100 WBC (Bld) 5.8 % . [facility] Neutrophils Auto (Bld) [#/Vo l]Ordered By: Harry Mohan on 08-09-2023 Neutrophils (Bld) [#/Vol] 4.0 10*3/uL 1.8-7.7 [facility] Neutrophils/100 WBC Auto (Bl d)Ordered By: Harry Mohan on 08-09-2023 Neutrophils/100 WBC (Bld) 48.2 % . [facility] Nitrite Test strip Ql (U)Ord ered By: Harry Mohan on 08-09-2023 Nitrite Ql (U) Negative Negative [facility] Nucleated erythrocytes [Pres ence] in Blood by Automated countOrdered By: Harry Mohan on 08-09-2023 Nucleated RBC Auto Ql (Bld) 0.2 /100{WBC} 0-0.5 [facility] Platelet mean volume Auto (B ld) [Entitic vol]Ordered By: Harry Mohan on 08-09-2023 Platelet mean volume (Bld) [Entitic vol] 7.5 fL 6.3-10.7 [facility] Platelets Auto (Bld) [#/Vol] Ordered By: Harry Mohan on 08-09-2023 Platelets (Bld) [#/Vol] 343 10*3/uL 150-450 [facility] Protein Auto test strip (U) [Mass/Vol]Ordered By: Harry Mohan on 08-09-2023 Protein (U) [Mass/Vol] Negative Negative [facility] RBC Auto (Bld) [#/Vol]Ordere d By: Harry Mohan on 08-09-2023 RBC (Bld) [#/Vol] 3.99 10*6/uL 3.60-5.00 [facility] Specific gravity Auto test s trip (U) [Rel density]Ordered By: Harry Mohan on 08-09-2023 Specific gravity (U) [Rel density] 1.013 1.001-1.03 0 [facility] Squamous epithelial cells de tection in urine sediment by light microscopyOrdered By: Harry Mohan on 08-09-2023 Epithelial cells.squamous LM Ql (Urine sed) 3-4 [HPF] 0-2 [facility] Urine bacteria detection by automated methodOrdered By: Harry Mohan on 08-09-2023 Bacteria Auto Ql (U) 2+ None Seen [facility] Urine clarity by refractomet ry automatedOrdered By: Harry Mohan on 08-09-2023 Clarity Refractometry automated (U) Cloudy Clear [facility] Urine glucose measurement by automated test strip (mass/volume)Ordered By: Harry Mohan on 08-09-2023 Glucose Auto test strip (U) [Mass/Vol] Normal mg/dL Normal [facility] Urine hemoglobin detection b y automated test stripOrdered By: Harry Mohan on 08-09-2023 Hemoglobin Auto test strip Ql (U) Negative Negative [facility] Urine leukocyte esterase det ection by automated test stripOrdered By: Harry Mohan on 08-09-2023 Leukocyte esterase Auto test strip Ql (U) Negative Negative [facility] Urobilinogen Auto test strip (U) [Mass/Vol]Ordered By: Harry Mohan on 08-09-2023 Urobilinogen (U) [Mass/Vol] Normal mg/dL Normal [facility] WBC Auto (Bld) [#/Vol]Ordere d By: Harry Mohan on 08-09-2023 WBC (Bld) [#/Vol] 8.3 10*3/uL 3.8-11.6 [facility] pH Auto test strip (U)Ordere d By: Harry Mohan on 08-09-2023 pH (U) 6.5 [pH] 5.0-9.0 [facility] Alanine aminotransferase [En zymatic activity/volume] in Serum or PlasmaOrdered By: Jeremiah Nunez on 07-26-2023 ALT [Catalytic activity/Vol] 35 U/L 7-52 [facility] Albumin [Mass/volume] in Ser um or Plasma by Bromocresol green (BCG) dye binding methoOrdered By: Jeremiah Nunez on 07-26-2023 Albumin BCG dye [Mass/Vol] 4.3 g/dL 3.5-5.7 [facility] Alkaline phosphatase [Enzyma tic activity/volume] in Serum or PlasmaOrdered By: Jeremiah Nunez on 07-26-2023 ALP [Catalytic activity/Vol] 63 U/L 34-104 [facility] Aspartate aminotransferase [ Enzymatic activity/volume] in Serum or PlasmaOrdered By: Jeremiah Nunez on 07-26-2023 AST [Catalytic activity/Vol] 25 U/L 13-39 [facility] Bacterial blood cultureOrder ed By: Jeremiah Nunez on 07-26-2023 Bacteria identified Cx Nom (Bld) NO GROWTH 5 DAYS [facility] Basophils Auto (Bld) [#/Vol] Ordered By: Jeremiah Nunez on 07-26-2023 Basophils (Bld) [#/Vol] 0.1 10*3/uL 0.0-0.2 [facility] Basophils/100 WBC Auto (Bld) Ordered By: Jeremiah Nunez on 07-26-2023 Basophils/100 WBC (Bld) 1.0 % . [facility] Bilirubin.direct [Mass/volum e] in Serum or PlasmaOrdered By: Jeremiah Nunez on 07-26-2023 Bilirubin.direct [Mass/Vol] 0.10 mg/dL 0.03-0.18 [facility] Bilirubin.total [Mass/volume ] in Serum or PlasmaOrdered By: Jeremiah Nunez on 07-26-2023 Bilirubin [Mass/Vol] 0.6 mg/dL 0.3-1.0 [facility] Calcium [Mass/volume] in Ser um or PlasmaOrdered By: Jeremiah Nunez on 07-26-2023 Calcium [Mass/Vol] 9.4 mg/dL 8.6-10.3 [facility] Carbon dioxide, total [Moles /volume] in Serum or PlasmaOrdered By: Jeremiah Nunez on 07-26-2023 CO2 [Moles/Vol] 26.0 mmol/L 21.0-31.0 [facility] Chloride [Moles/volume] in [place] or PlasmaOrdered By: Jeremiah Nunez on 07-26-2023 Chloride [Moles/Vol] 105 mmol/L 98-107 [facility] Creatinine [Mass/volume] in Serum or PlasmaOrdered By: Jeremiah Nunez on 07-26-2023 Creatinine [Mass/Vol] 0.75 mg/dL 0.60-1.20 [facility] Eosinophils Auto (Bld) [#/Vo l]Ordered By: Jeremiah Nunez on 07-26-2023 Eosinophils (Bld) [#/Vol] 0.2 10*3/uL 0.0-0.45 [facility] Eosinophils/100 WBC Auto (Bl d)Ordered By: Jeremiah Nunez on 07-26-2023 Eosinophils/100 WBC (Bld) 1.1 % . [facility] Erythrocyte distribution wid th Auto (RBC) [Ratio]Ordered By: Jeremiah Nunez on 07-26-2023 Erythrocyte distribution width (RBC) [Ratio] 12.7 % 11.9-15.3 [facility] Globulin Calc (S) [Mass/Vol] Ordered By: Jeremiah Nunez on 07-26-2023 Globulin (S) [Mass/Vol] 2.7 g/dL [facility] Glucose [Mass/volume] in Ser um or PlasmaOrdered By: Jeremiah Nunez on 07-26-2023 Glucose [Mass/Vol] 92 mg/dL 70-100 [facility] Comment on above: ADA recommended refe rence rangeRandom Glucose Reference Range is dependent on time and content of last meal. Glucose of more than 200 mg/dL in a nonstressed, ambulatory subject supports the diagnosis of Diabetes Mellitus. Hematocrit Auto (Bld) [Volum e fraction]Ordered By: Jeremiah Nunez on 07-26-2023 Hematocrit (Bld) [Volume fraction] 41.8 % 34.0-46.4 [facility] Hemoglobin [Mass/volume] in BloodOrdered By: Jeremiah Nunez on 07-26-2023 Hemoglobin (Bld) [Mass/Vol] 14.2 g/dL 11.8-15.4 [facility] Lactate [Moles/volume] in Se rum or PlasmaOrdered By: Jeremiah Nunez on 07-26-2023 Lactate [Moles/Vol] 1.0 mmol/L 0.5-2.2 [facility] Leukocytes [#/volume] correc danielito for nucleated erythrocytes in Blood by Automated counOrdered By: eJremiah Nunez on 07-26-2023 WBC corrected for nucl RBC Auto (Bld) [#/Vol] 13.8 10*3/uL 3.8-11.6 [facility] Lymphocytes Auto (Bld) [#/Vo l]Ordered By: Jeremiah Nunez on 07-26-2023 Lymphocytes (Bld) [#/Vol] 5.7 10*3/uL 1.00-4.8 [facility] Lymphocytes/100 WBC Auto (Bl d)Ordered By: Jeremiah Nunez on 07-26-2023 Lymphocytes/100 WBC (Bld) 41.5 % . [facility] MCH Auto (RBC) [Entitic mass ]Ordered By: Jeremiah Nunez on 07-26-2023 MCH (RBC) [Entitic mass] 31.2 pg 24.7-34.3 [facility] MCHC Auto (RBC) [Mass/Vol]Or dered By: Jeremiah Nunez on 07-26-2023 MCHC (RBC) [Mass/Vol] 33.9 g/dL 32.0-35.0 [facility] MCV Auto (RBC) [Entitic vol] Ordered By: Jeremiah Nunez on 07-26-2023 MCV (RBC) [Entitic vol] 92.0 fL 80-100 [facility] Monocyte distribution width [Entitic volume] in Blood by AutomatedOrdered By: Jeremiah Nunez on 07-26-2023 Monocyte distribution width Auto (Bld) [Entitic vol] 22.30 % 0.00-20.00 [facility] Comment on above: For adults in ED, MD W > 20.0 may be associated with a higher risk of sepsis during the first 12 hrs of hospital admission Monocytes Auto (Bld) [#/Vol] Ordered By: Jeremiah Nunez on 07-26-2023 Monocytes (Bld) [#/Vol] 0.7 10*3/uL 0.0-0.8 [facility] Monocytes/100 WBC Auto (Bld) Ordered By: Jeremiah Nunez on 07-26-2023 Monocytes/100 WBC (Bld) 4.9 % . [facility] Neutrophils Auto (Bld) [#/Vo l]Ordered By: Jeremiah Nunez on 07-26-2023 Neutrophils (Bld) [#/Vol] 7.1 10*3/uL 1.8-7.7 [facility] Neutrophils/100 WBC Auto (Bl d)Ordered By: Jeremiah Nunez on 07-26-2023 Neutrophils/100 WBC (Bld) 51.5 % . [facility] No Panel InformationOrdered By: Jeremiah Nunez on 07-26-2023 Estimated GFR (CKD-EPI) > 60.0 mL/Min [facility] Creatinine Clearance (Chem 127.46 [facility] Nucleated erythrocytes [Pres ence] in Blood by Automated countOrdered By: Jeremiah Nunez on 07-26-2023 Nucleated RBC Auto Ql (Bld) 0.5 /100{WBC} 0-0.5 [facility] Platelet mean volume Auto (B ld) [Entitic vol]Ordered By: Jeremiah Nunez on 07-26-2023 Platelet mean volume (Bld) [Entitic vol] 6.9 fL 6.3-10.7 [facility] Platelets Auto (Bld) [#/Vol] Ordered By: Jeremiah Nunez on 07-26-2023 Platelets (Bld) [#/Vol] 525 10*3/uL 150-450 [facility] Potassium [Moles/volume] in Serum or PlasmaOrdered By: Jeremiah Nunez on 07-26-2023 Potassium [Moles/Vol] 3.8 mmol/L 3.5-5.1 [facility] Protein [Mass/volume] in Ser um or PlasmaOrdered By: Jeremiah Nunez on 07-26-2023 Protein [Mass/Vol] 7.0 g/dL 6.4-8.9 [facility] RBC Auto (Bld) [#/Vol]Ordere d By: Jeremiah Nunez on 07-26-2023 RBC (Bld) [#/Vol] 4.54 10*6/uL 3.60-5.00 [facility] Serum or plasma albumin/glob ulin mass ratioOrdered By: Jeremiah Nunez on 07-26-2023 Albumin/Globulin [Mass ratio] 1.6 {ratio} [facility] Serum or plasma anion gap de terminationOrdered By: Jeremiah Nunez on 07-26-2023 Anion gap [Moles/Vol] 11.8 mmol/L 6.0-15.0 [facility] Serum or plasma non-glucuron idated bilirubin measurement (mass/volume)Ordered By: Jeremiah Nunez on 07-26-2023 Bilirubin.indirect [Mass/Vol] 0.5 mg/dL [facility] Sodium [Moles/volume] in Ser um or PlasmaOrdered By: Jeremiah Nunez on 07-26-2023 Sodium [Moles/Vol] 139 mmol/L 136-145 [facility] Troponin I.cardiac [Mass/vol ume] in Serum or Plasma by Detection limit <= 0.01 ng/Ordered By: Jeremiah Nunez on 07-26-2023 Troponin I.cardiac DL <= 0.01 ng/mL [Mass/Vol] 2.5 pg/mL 0.0-15.0 [facility] Urea nitrogen [Mass/volume] in Serum or PlasmaOrdered By: Jeremiah Nunez on 07-26-2023 Urea nitrogen [Mass/Vol] 11 mg/dL 7-25 [facility] WBC Auto (Bld) [#/Vol]Ordere d By: Jeremiah Nunez on 07-26-2023 WBC (Bld) [#/Vol] 13.8 10*3/uL 3.8-11.6 [facility] Anisocytosis LM Ql (Bld)Orde red By: Harry Mohan on 07-25-2023 Anisocytosis Ql (Bld) Slight [facility] Automated erythrocytes count in urine sediment (number/area)Ordered By: Harry Mohan on 07-25-2023 RBC Auto (Urine sed) [#/Area] 20-49 [HPF] 0-4 [facility] Automated leukocytes count i n urine sediment (number/area)Ordered By: Harry Mohan on 07-25-2023 WBC Auto (Urine sed) [#/Area] 3-4 [HPF] 0-4 [facility] Basophils Auto (Bld) [#/Vol] Ordered By: Harry Mohan on 07-25-2023 Basophils (Bld) [#/Vol] N/A [facility] Basophils/100 WBC Auto (Bld) Ordered By: Harry Mohan on 07-25-2023 Basophils/100 WBC (Bld) N/A [facility] Basophils/100 WBC Manual cnt (Bld)Ordered By: Harry Mohan on 07-25-2023 Basophils/100 WBC (Bld) 0 % 0-2 [facility] Bilirubin Test strip Ql (U)O rdered By: Harry Mohan on 07-25-2023 Bilirubin Ql (U) Negative Negative [facility] Color Auto (U)Ordered By: Do tg Mohan on 07-25-2023 Color (U) Yellow Yellow [facility] Eosinophils Auto (Bld) [#/Vo l]Ordered By: Harry Mohan on 07-25-2023 Eosinophils (Bld) [#/Vol] N/A [facility] Eosinophils/100 WBC Auto (Bl d)Ordered By: Harry Mohan on 07-25-2023 Eosinophils/100 WBC (Bld) N/A [facility] Eosinophils/100 WBC Manual c nt (Bld)Ordered By: Harry Mohan on 07-25-2023 Eosinophils/100 WBC (Bld) 0 % 1-3 [facility] Erythrocyte distribution wid th Auto (RBC) [Ratio]Ordered By: Harry Mohan on 07-25-2023 Erythrocyte distribution width (RBC) [Ratio] 12.3 % 11.9-15.3 [facility] Hematocrit Auto (Bld) [Volum e fraction]Ordered By: Harry Mohan on 07-25-2023 Hematocrit (Bld) [Volume fraction] 39.4 % 34.0-46.4 [facility] Hemoglobin [Mass/volume] in BloodOrdered By: Harry Mohan on 07-25-2023 Hemoglobin (Bld) [Mass/Vol] 13.8 g/dL 11.8-15.4 [facility] Ketones Auto test strip (U) [Mass/Vol]Ordered By: Harry Mohan on 07-25-2023 Ketones (U) [Mass/Vol] Trace Negative [facility] Laboratory - UrinalysisOrder ed By: Harry Mohan on 07-25-2023 Hyaline casts LM Ql (Urine sed) 0-8 [LPF] 0-8 [facility] Leukocytes [#/volume] correc danielito for nucleated erythrocytes in Blood by Automated counOrdered By: Harry Mohan on 07-25-2023 WBC corrected for nucl RBC Auto (Bld) [#/Vol] 13.7 10*3/uL 3.8-11.6 [facility] Lymphocytes Auto (Bld) [#/Vo l]Ordered By: Harry Mohan on 07-25-2023 Lymphocytes (Bld) [#/Vol] N/A [facility] Lymphocytes/100 WBC Auto (Bl d)Ordered By: Harry Mohan on 07-25-2023 Lymphocytes/100 WBC (Bld) N/A [facility] Lymphocytes/100 WBC Manual c nt (Bld)Ordered By: Harry Mohan on 07-25-2023 Lymphocytes/100 WBC (Bld) 19 % 18-42 [facility] MCH Auto (RBC) [Entitic mass ]Ordered By: Harry Mohan on 07-25-2023 MCH (RBC) [Entitic mass] 32.4 pg 24.7-34.3 [facility] MCHC Auto (RBC) [Mass/Vol]Or dered By: Harry Mohan on 07-25-2023 MCHC (RBC) [Mass/Vol] 35.2 g/dL 32.0-35.0 [facility] MCV Auto (RBC) [Entitic vol] Ordered By: Harry Mohan on 07-25-2023 MCV (RBC) [Entitic vol] 92.3 fL 80-100 [facility] Monocytes Auto (Bld) [#/Vol] Ordered By: Harry Mohan on 07-25-2023 Monocytes (Bld) [#/Vol] N/A [facility] Monocytes/100 WBC Auto (Bld) Ordered By: Harry Mohan on 07-25-2023 Monocytes/100 WBC (Bld) N/A [facility] Monocytes/100 WBC Manual cnt (Bld)Ordered By: Harry Mohan on 07-25-2023 Monocytes/100 WBC (Bld) 3 % 2-11 [facility] Myelocytes/100 WBC Manual cn t (Bld)Ordered By: Harry Mohan on 07-25-2023 Myelocytes/100 WBC (Bld) 2 % 0-0 [facility] Neutrophils Auto (Bld) [#/Vo l]Ordered By: Harry Mohan on 07-25-2023 Neutrophils (Bld) [#/Vol] N/A [facility] Neutrophils/100 WBC Auto (Bl d)Ordered By: Harry Mohan on 07-25-2023 Neutrophils/100 WBC (Bld) N/A [facility] Nitrite Test strip Ql (U)Ord ered By: Harry Mohan on 07-25-2023 Nitrite Ql (U) Negative Negative [facility] Nucleated erythrocytes [Pres ence] in Blood by Automated countOrdered By: Harry Mohan on 07-25-2023 Nucleated RBC Auto Ql (Bld) N/A [facility] Platelet adequacy [Presence] in Blood by Light microscopyOrdered By: Harry Mohan on 07-25-2023 Platelets LM Ql (Bld) Increased Normal [facility] Platelet mean volume Auto (B ld) [Entitic vol]Ordered By: Harry Mohan on 07-25-2023 Platelet mean volume (Bld) [Entitic vol] 6.7 fL 6.3-10.7 [facility] Platelet morphology finding [Identifier] in BloodOrdered By: Harry Mohan on 07-25-2023 Platelet morphology finding Nom (Bld) Normal Normal [facility] Platelets Auto (Bld) [#/Vol] Ordered By: Harry Mohan on 07-25-2023 Platelets (Bld) [#/Vol] 525 10*3/uL 150-450 [facility] Polychromasia [Presence] in Blood by Light microscopyOrdered By: Harry Mohan on 07-25-2023 Polychromasia LM Ql (Bld) Slight [facility] Protein Auto test strip (U) [Mass/Vol]Ordered By: Harry Mohan on 07-25-2023 Protein (U) [Mass/Vol] Negative [facility] RBC Auto (Bld) [#/Vol]Ordere d By: Harry Mohan on 07-25-2023 RBC (Bld) [#/Vol] 4.27 10*6/uL 3.60-5.00 [facility] RBC morphologyOrdered By: Do ugtabitha Mohan on 07-25-2023 RBC morphology finding Nom (Bld) N/A [facility] Segmented neutrophils/100 WB C Manual cnt (Bld)Ordered By: Harry Mohan on 07-25-2023 Segmented neutrophils/100 WBC (Bld) 76 % 50-70 [facility] Specific gravity Auto test s trip (U) [Rel density]Ordered By: Harry Mohan on 07-25-2023 Specific gravity (U) [Rel density] 1.022 1.001-1.03 0 [facility] Squamous epithelial cells de tection in urine sediment by light microscopyOrdered By: Harry Mohan on 07-25-2023 Epithelial cells.squamous LM Ql (Urine sed) 3-4 [HPF] 0-2 [facility] Urine Legionella antigen det ectionOrdered By: Harry Mohan on 07-25-2023 Legionella sp Ag Ql (U) Negative Negative [facility] Comment on above: Presumptive negative for L. pneumophila serogroup 1 antigenin urine, suggesting no recent or current infection.Legionnaires' disease cannot be ruled out since otherserogroups and species may also cause disease.Performed at: [address] [id number] Director: Jamal Lopez MD, Phone: [phone] Urine bacteria detection by automated methodOrdered By: Harry Mohan on 07-25-2023 Bacteria Auto Ql (U) None seen None Seen [facility] Urine clarity by refractomet ry automatedOrdered By: Harry Mohan on 07-25-2023 Clarity Refractometry automated (U) Clear Clear [facility] Urine culture routineOrdered By: Harry Mohan on 07-25-2023 Bacteria identified Cx Nom (U) No Growth 2 Days [facility] Urine glucose measurement by automated test strip (mass/volume)Ordered By: Harry Mohan on 07-25-2023 Glucose Auto test strip (U) [Mass/Vol] Normal mg/dL Normal [facility] Urine hemoglobin detection b y automated test stripOrdered By: Harry Mohan on 07-25-2023 Hemoglobin Auto test strip Ql (U) Negative Negative [facility] Urine leukocyte esterase det ection by automated test stripOrdered By: Harry Mohan on 07-25-2023 Leukocyte esterase Auto test strip Ql (U) Negative Negative [facility] Urobilinogen Auto test strip (U) [Mass/Vol]Ordered By: Harry Mohan on 07-25-2023 Urobilinogen (U) [Mass/Vol] Normal mg/dL Normal [facility] WBC Auto (Bld) [#/Vol]Ordere d By: Harry Mohan on 07-25-2023 WBC (Bld) [#/Vol] 13.7 10*3/uL 3.8-11.6 [facility] pH Auto test strip (U)Ordere d By: Harry Mohan on 07-25-2023 pH (U) 5.5 [pH] 5.0-9.0 [facility] Activated partial thrombopla stin time (aPTT) in platelet poor plasma by coagulation aOrdered By: Jeevan Hagan on 07-18-2023 aPTT Coag (PPP) [Time] 27.4 s 25.1-36.5 [facility] Comment on above: A hematocrit value g reater than 55% may lead to inaccurate results in coagulation testing. Patients having hematocrit values >55% require a special collection tube for coagulation studies. Please contact the laboratory at [phone] for redraw instructions. Alanine aminotransferase [En zymatic activity/volume] in Serum or PlasmaOrdered By: Jeevan Hagan on 07-18-2023 ALT [Catalytic activity/Vol] 39 U/L 7-52 [facility] Albumin [Mass/volume] in Ser um or Plasma by Bromocresol green (BCG) dye binding methoOrdered By: Jeevan Hagan on 07-18-2023 Albumin BCG dye [Mass/Vol] 4.4 g/dL 3.5-5.7 [facility] Alkaline phosphatase [Enzyma tic activity/volume] in Serum or PlasmaOrdered By: Jeevan Hagan on 07-18-2023 ALP [Catalytic activity/Vol] 73 U/L 34-104 [facility] Aspartate aminotransferase [ Enzymatic activity/volume] in Serum or PlasmaOrdered By: Jeevan Hagan on 07-18-2023 AST [Catalytic activity/Vol] 42 U/L 13-39 [facility] Automated erythrocytes count in urine sediment (number/area)Ordered By: Jeevan Hagan on 07-18-2023 RBC Auto (Urine sed) [#/Area] 10-19 [HPF] 0-4 [facility] Automated leukocytes count i n urine sediment (number/area)Ordered By: Jeevan Hagan on 07-18-2023 WBC Auto (Urine sed) [#/Area] 1-2 [HPF] 0-4 [facility] Bacterial blood cultureOrder ed By: Jeevan Hagan on 07-18-2023 Bacteria identified Cx Nom (Bld) NO GROWTH 5 DAYS [facility] Basophils Auto (Bld) [#/Vol] Ordered By: Jeevan Hagan on 07-18-2023 Basophils (Bld) [#/Vol] 0.0 10*3/uL 0.0-0.2 [facility] Basophils/100 WBC Auto (Bld) Ordered By: Jeevan Hagan on 07-18-2023 Basophils/100 WBC (Bld) 0.5 % . [facility] Bilirubin Test strip Ql (U)O rdered By: Jeevan Hagan on 07-18-2023 Bilirubin Ql (U) Negative Negative [facility] Bilirubin.direct [Mass/volum e] in Serum or PlasmaOrdered By: Jeevan Hagan on 07-18-2023 Bilirubin.direct [Mass/Vol] 0.10 mg/dL 0.03-0.18 [facility] Bilirubin.total [Mass/volume ] in Serum or PlasmaOrdered By: Jeevan Hagan on 07-18-2023 Bilirubin [Mass/Vol] 0.5 mg/dL 0.3-1.0 [facility] COVID CepheidOrdered By: Taqueria Hagan on 07-18-2023 SARS-CoV-2 (COVID-19) Ab IA Ql Negative Negative [facility] Comment on above: This is a duplicate [employer] Xpert Xpress CoV-2/Flu/RSV Plus RNA by RT-PCR result to be used for statistical tracking purpose only. SARS-CoV-2 (COVID-19) RNA ERENDIRA+probe Ql (Unsp spec) [facility] Calcium [Mass/volume] in Ser um or PlasmaOrdered By: Jeevan Hagan on 07-18-2023 Calcium [Mass/Vol] 9.1 mg/dL 8.6-10.3 [facility] Carbon dioxide, total [Moles /volume] in Serum or PlasmaOrdered By: Jeevan Hagan on 07-18-2023 CO2 [Moles/Vol] 23.1 mmol/L 21.0-31.0 [facility] Chloride [Moles/volume] in [place] or PlasmaOrdered By: Jeevan Hagan on 07-18-2023 Chloride [Moles/Vol] 103 mmol/L 98-107 [facility] Color Auto (U)Ordered By: Thao Hagan on 07-18-2023 Color (U) Dark yellow Yellow [facility] Creatinine [Mass/volume] in Serum or PlasmaOrdered By: Jeevan Hagan on 07-18-2023 Creatinine [Mass/Vol] 0.66 mg/dL 0.60-1.20 [facility] Eosinophils Auto (Bld) [#/Vo l]Ordered By: Jeevan Hagan on 07-18-2023 Eosinophils (Bld) [#/Vol] 0.0 10*3/uL 0.0-0.45 [facility] Eosinophils/100 WBC Auto (Bl d)Ordered By: Jeevan Hagan on 07-18-2023 Eosinophils/100 WBC (Bld) 0.1 % . [facility] Erythrocyte distribution wid th Auto (RBC) [Ratio]Ordered By: Jeevan Hagan on 07-18-2023 Erythrocyte distribution width (RBC) [Ratio] 12.7 % 11.9-15.3 [facility] Fibrin D-dimer [Presence] in Platelet poor plasma by Latex agglutinationOrdered By: Jeevan Hagan on 07-18-2023 Fibrin D-dimer LA Ql (PPP) 779 ng/mL 0-243 [facility] Comment on above: The reference range for D-dimer is <243 ng/mL D-dimer units.D-dimer results must be used in conjunction with a clinicalpretest probability (PTP) assessment model for deep veinthrombosis (DVT) and pulmonary embolism (PE). Results <230ng/mL d-dimer units can be used as a negative predictor inpatients with low or moderate probability for DVT/PE.Results above the exclusion threshold of 230 ng/ml D-dimerunits for DVT/PE may indicate the need for furtherdiagnostic testing.D-Dimer can be increased in hospitalized patients due toco-morbid conditions.A hematocrit value greater than 55% may lead to inaccurate results in coagulation testing. Patients having hematocrit values >55% require a special collection tube for coagulation studies. Please contact the laboratory at [phone] for redraw instructions. Globulin Calc (S) [Mass/Vol] Ordered By: Jeevan Hagan on 07-18-2023 Globulin (S) [Mass/Vol] 3.0 g/dL [facility] Glucose [Mass/volume] in Ser um or PlasmaOrdered By: Jeevan Hagan on 07-18-2023 Glucose [Mass/Vol] 111 mg/dL 70-100 [facility] Comment on above: ADA recommended refe rence rangeRandom Glucose Reference Range is dependent on time and content of last meal. Glucose of more than 200 mg/dL in a nonstressed, ambulatory subject supports the diagnosis of Diabetes Mellitus. HCG ( test) IA.rapi d Ql (U)Ordered By: Jeevan Hagan on 07-18-2023 HCG ( test) Ql (U) Negative [facility] Hematocrit Auto (Bld) [Volum e fraction]Ordered By: Jeevan Hagan on 07-18-2023 Hematocrit (Bld) [Volume fraction] 40.7 % 34.0-46.4 [facility] Hemoglobin [Mass/volume] in BloodOrdered By: Jeevan Hagan on 07-18-2023 Hemoglobin (Bld) [Mass/Vol] 14.1 g/dL 11.8-15.4 [facility] INR in Platelet poor plasma by Coagulation assayOrdered By: Jeevan Hagan on 07-18-2023 INR Coag (PPP) [Relative time] 1.1 {INR} [facility] Comment on above: INR Therapeutic Rang e A) Pre- and Peroperative OAT started two weeks before surgery. NOT HIP SURGERY: 1.5 - 2.5 HIP SURGERY: 2 - 3B) Primary and secondary prevention of venous THROMBOSIS: 2 - 3C) Active venous thrombosis, pulmonary embolismand prevention of recurrent venous thrombosis: 2 - 3D) Prevention of arterial thromboembolismincluding patients with mechanical heart valves: 3 - 4.5 Ketones Auto test strip (U) [Mass/Vol]Ordered By: Jeevan Hagan on 07-18-2023 Ketones (U) [Mass/Vol] Trace Negative [facility] Laboratory - UrinalysisOrder ed By: Jeevan Hagan on 07-18-2023 Hyaline casts LM Ql (Urine sed) 0-8 [LPF] 0-8 [facility] Lactate [Moles/volume] in Se rum or PlasmaOrdered By: Jeevan Hagan on 07-18-2023 Lactate [Moles/Vol] 0.9 mmol/L 0.5-2.2 [facility] Leukocytes [#/volume] correc danielito for nucleated erythrocytes in Blood by Automated counOrdered By: Jeevan Hagan on 07-18-2023 WBC corrected for nucl RBC Auto (Bld) [#/Vol] 6.6 10*3/uL 3.8-11.6 [facility] Lipase [Enzymatic activity/v olume] in Serum or PlasmaOrdered By: Jeevan Hagan on 07-18-2023 Lipase [Catalytic activity/Vol] 16.0 U/L 11.0-82.0 [facility] Lymphocytes Auto (Bld) [#/Vo l]Ordered By: Jeevan Haagn on 07-18-2023 Lymphocytes (Bld) [#/Vol] 1.2 10*3/uL 1.00-4.8 [facility] Lymphocytes/100 WBC Auto (Bl d)Ordered By: Jeevan Hagan on 07-18-2023 Lymphocytes/100 WBC (Bld) 18.7 % . [facility] MCH Auto (RBC) [Entitic mass ]Ordered By: Jeevan Hagan on 07-18-2023 MCH (RBC) [Entitic mass] 30.3 pg 24.7-34.3 [facility] MCHC Auto (RBC) [Mass/Vol]Or dered By: Jeevan Hagan on 07-18-2023 MCHC (RBC) [Mass/Vol] 34.7 g/dL 32.0-35.0 [facility] MCV Auto (RBC) [Entitic vol] Ordered By: Jeevan Hagan on 07-18-2023 MCV (RBC) [Entitic vol] 87.3 fL 80-100 [facility] Monocyte distribution width [Entitic volume] in Blood by AutomatedOrdered By: Jeevan Hagan on 07-18-2023 Monocyte distribution width Auto (Bld) [Entitic vol] 27.47 % 0.00-20.00 [facility] Comment on above: For adults in ED, MD W > 20.0 may be associated with a higher risk of sepsis during the first 12 hrs of hospital admission Monocytes Auto (Bld) [#/Vol] Ordered By: Jeevan Hagan on 07-18-2023 Monocytes (Bld) [#/Vol] 0.4 10*3/uL 0.0-0.8 [facility] Monocytes/100 WBC Auto (Bld) Ordered By: Jeevan Hagan on 07-18-2023 Monocytes/100 WBC (Bld) 6.7 % . [facility] Neutrophils Auto (Bld) [#/Vo l]Ordered By: Jeevan Hagan on 07-18-2023 Neutrophils (Bld) [#/Vol] 4.9 10*3/uL 1.8-7.7 [facility] Neutrophils/100 WBC Auto (Bl d)Ordered By: Jeevan Hagan on 07-18-2023 Neutrophils/100 WBC (Bld) 74.0 % . [facility] Nitrite Test strip Ql (U)Ord ered By: Jeevan Hagan on 07-18-2023 Nitrite Ql (U) Negative Negative [facility] No Panel InformationOrdered By: Jeevan Hagan on 07-18-2023 Estimated GFR (CKD-EPI) > 60.0 mL/Min [facility] Creatinine Clearance (Chem 147.10 [facility] Nucleated erythrocytes [Pres ence] in Blood by Automated countOrdered By: Jeevan Hagan on 07-18-2023 Nucleated RBC Auto Ql (Bld) 0.1 /100{WBC} 0-0.5 [facility] Platelet mean volume Auto (B ld) [Entitic vol]Ordered By: Jeevan Hagan on 07-18-2023 Platelet mean volume (Bld) [Entitic vol] 7.4 fL 6.3-10.7 [facility] Platelets Auto (Bld) [#/Vol] Ordered By: Jeevan Hagan on 07-18-2023 Platelets (Bld) [#/Vol] 282 10*3/uL 150-450 [facility] Potassium [Moles/volume] in Serum or PlasmaOrdered By: Jeevan Hagan on 07-18-2023 Potassium [Moles/Vol] 3.6 mmol/L 3.5-5.1 [facility] Protein Auto test strip (U) [Mass/Vol]Ordered By: Jeevan Hagan on 07-18-2023 Protein (U) [Mass/Vol] 30 mg/dL Negative [facility] Protein [Mass/volume] in Ser um or PlasmaOrdered By: Jeevan Hagan on 07-18-2023 Protein [Mass/Vol] 7.4 g/dL 6.4-8.9 [facility] Prothrombin time (PT)Ordered By: Jeevan Hagan on 07-18-2023 PT Coag (PPP) [Time] 13.0 s 9.0-12.9 [facility] Comment on above: A hematocrit value g reater than 55% may lead to inaccurate results in coagulation testing. Patients having hematocrit values >55% require a special collection tube for coagulation studies. Please contact the laboratory at [phone] for redraw instructions. RBC Auto (Bld) [#/Vol]Ordere d By: Jeevan Hagan on 07-18-2023 RBC (Bld) [#/Vol] 4.66 10*6/uL 3.60-5.00 [facility] Serum or plasma albumin/glob ulin mass ratioOrdered By: Jeevan Hagan on 07-18-2023 Albumin/Globulin [Mass ratio] 1.5 {ratio} [facility] Serum or plasma anion gap de terminationOrdered By: Jeevan Hagan on 07-18-2023 Anion gap [Moles/Vol] 12.5 mmol/L 6.0-15.0 [facility] Serum or plasma non-glucuron idated bilirubin measurement (mass/volume)Ordered By: Jeevan Hagan on 07-18-2023 Bilirubin.indirect [Mass/Vol] 0.4 mg/dL [facility] Sodium [Moles/volume] in Ser um or PlasmaOrdered By: Jeevan Hagan on 07-18-2023 Sodium [Moles/Vol] 135 mmol/L 136-145 [facility] Specific gravity Auto test s trip (U) [Rel density]Ordered By: Jeevan Hagan on 07-18-2023 Specific gravity (U) [Rel density] 1.031 1.001-1.03 0 [facility] Squamous epithelial cells de tection in urine sediment by light microscopyOrdered By: Jeevan aHgan on 07-18-2023 Epithelial cells.squamous LM Ql (Urine sed) 3-4 [HPF] 0-2 [facility] Troponin I.cardiac [Mass/vol ume] in Serum or Plasma by Detection limit <= 0.01 ng/Ordered By: Jeevan Hagan on 07-18-2023 Troponin I.cardiac DL <= 0.01 ng/mL [Mass/Vol] < 2.3 pg/mL 0.0-15.0 [facility] Urea nitrogen [Mass/volume] in Serum or PlasmaOrdered By: Jeevan Hgaan on 07-18-2023 Urea nitrogen [Mass/Vol] 9 mg/dL 7-25 [facility] Urine bacteria detection by automated methodOrdered By: Jeevan Hagan on 07-18-2023 Bacteria Auto Ql (U) None seen None Seen [facility] Urine clarity by refractomet ry automatedOrdered By: Jeevan Hagan on 07-18-2023 Clarity Refractometry automated (U) Clear Clear [facility] Urine glucose measurement by automated test strip (mass/volume)Ordered By: Jeevan Hagan on 07-18-2023 Glucose Auto test strip (U) [Mass/Vol] Normal mg/dL Normal [facility] Urine hemoglobin detection b y automated test stripOrdered By: Jeevan Hagan on 07-18-2023 Hemoglobin Auto test strip Ql (U) Negative Negative [facility] Urine leukocyte esterase det ection by automated test stripOrdered By: Jeevan Hagan on 07-18-2023 Leukocyte esterase Auto test strip Ql (U) 1+ Negative [facility] Urobilinogen Auto test strip (U) [Mass/Vol]Ordered By: Jeevan Hagan on 07-18-2023 Urobilinogen (U) [Mass/Vol] Normal mg/dL Normal [facility] WBC Auto (Bld) [#/Vol]Ordere d By: Jeevan Hagan on 07-18-2023 WBC (Bld) [#/Vol] 6.6 10*3/uL 3.8-11.6 [facility] pH Auto test strip (U)Ordere d By: Jeevan Hagan on 07-18-2023 pH (U) 6.0 [pH] 5.0-9.0 [facility] CBC AUTO DIFFon 11-25-2022 BASO # 0.0 103/ul Normal 0.0-0.1 [facility] Comment on above: Performed By: #### C BC #### [facility] [address] [address] [address] Beltran Carranza Basophils/100 WBC (Bld) 0.4 % Normal 0.2-2.0 [facility] Comment on above: Performed By: #### C BC #### [facility] [address] [address] [address] Beltran Carranza EO # 0.1 103/ul Normal 0.0-0.7 [facility] Comment on above: Performed By: #### C BC #### [facility] [address] [address] [address] Beltran Carranza Eosinophils/100 WBC (Bld) 1.3 % Normal 0.9-7.0 [facility] Comment on above: Performed By: #### C BC #### [facility] [address] [address] [address] Beltran Carranza Erythrocyte distribution width (RBC) [Ratio] 11.7 % Normal 11.0-15.0 [facility] Comment on above: Performed By: #### C BC #### [facility] [address] [place] [address] Dr. Beltran Carranza Hematocrit (Bld) [Volume fraction] 40.7 % Normal 36.0-48.0 [facility] Comment on above: Performed By: #### C BC #### [facility] [address] [place] [address] Dr. Beltran Carranza Hemoglobin (Bld) [Mass/Vol] 13.5 g/dL Normal 12.0-16.0 [facility] Comment on above: Performed By: #### C BC #### [facility] [address] [place] [address] Dr. Beltran Carranza IG # 0.01 10e3/ul Normal 0.00-0.03 [facility] Comment on above: Performed By: #### C BC #### [facility] [address] [place] [address] Dr. Beltran Carranza IG % 0.1 % Normal 0.0-0.5 [facility] Comment on above: Performed By: #### C BC #### [facility] [address] [place] [address] Dr. Beltran Carranza LYMPH # 3.1 103/ul Normal 1.2-3.8 [facility] Comment on above: Performed By: #### C BC #### [facility] [address] [place] [address] Dr. Beltran Carranza Lymphocytes/100 WBC (Bld) 44.8 % Normal 20.5-60.0 [facility] Comment on above: Performed By: #### C BC #### [facility] [address] [place] [address] Dr. Beltran Carranza MANUAL DIFF REQ NO Normal [facility] Comment on above: Performed By: #### C BC #### [facility] [address] [place] [address] Dr. Beltran Carranza MCH (RBC) [Entitic mass] 29.7 pg Normal 26.7-34.0 [facility] Comment on above: Performed By: #### C BC #### [facility] [address] [place] [address] Dr. Beltran Carranza MCHC (RBC) [Mass/Vol] 33.2 g/dL Normal 29.9-35.2 [facility] Comment on above: Performed By: #### C BC #### [facility] [address] [place] [address] Dr. Beltran Carranza MCV (RBC) [Entitic vol] 89.6 fL Normal 81.0-99.0 [facility] Comment on above: Performed By: #### C BC #### [facility] [address] [place] [address] Dr. Beltran Carranza MONO # 0.4 103/ul Normal 0.3-0.8 [facility] Comment on above: Performed By: #### C BC #### [facility] [address] [address] [address] Beltran Carranza Monocytes/100 WBC (Bld) 6.3 % Normal 1.7-12.0 [facility] Comment on above: Performed By: #### C BC #### [facility] [address] [place] [address] Dr. Beltran Carranza NEUT # 3.3 103/ul Normal 1.4-6.5 [facility] Comment on above: Performed By: #### C BC #### [facility] [address] [place] [address] Dr. Beltran Carranza Neutrophils/100 WBC (Bld) 47.1 % Normal 43.0-75.0 [facility] Comment on above: Performed By: #### C BC #### [facility] [address] [place] [address] Dr. Beltran Carranza Platelet mean volume (Bld) [Entitic vol] 8.9 fL Critically low 9.5-13.5 [facility] Comment on above: Performed By: #### C BC #### [facility] [address] [place] [address] Dr. Beltran Carranza PLT 372 103/ul Normal 150-450 [facility] Comment on above: Performed By: #### C BC #### [facility] [address] [place] [address] Dr. Beltran Carranza RBC 4.54 106/ul Normal 4.20-5.40 [facility] Comment on above: Performed By: #### C BC #### [facility] [address] [place] [address] Dr. Beltran Carranza WBC 7.0 103/ul Normal 4.0-11.0 [facility] Comment on above: Performed By: #### C BC #### [facility] [address] [place] [address] Dr. Beltran Carranza FREE THYROXINE INDEX T7on FTI 3.17 Normal 1.30-4.50 [facility] Comment on above: Performed By: #### C MP, LIPID, TSH, T7 #### [facility] [address] [place] [address] Dr. Beltran Carranza T3U 33.0 % Normal 30.0-39.0 [facility] Comment on above: Performed By: #### C MP, LIPID, TSH, T7 #### [facility] [address] [place] [address] Dr. Beltran Carranza T4 [Mass/Vol] 9.60 ug/dL Normal 4.80-13.90 [facility] Comment on above: Performed By: #### C MP, LIPID, TSH, T7 #### [facility] [address] [place] [address] Dr. Beltran Carranza GLYCOHEMOGLOBIN A1Con 2022 ADA RECOMMENDATION SEE BELOW Normal [facility] Comment on above: Result Comment: ADA RECOMMENDED LIMIT 4.0 - 6.0 ADA THERAPEUTIC TARGET < 7.0 ACTION SUGGESTED > 7.0 Performed By: #### A 1C #### [facility] [address] [place] [address] Dr. Beltran Carranza Glucose [Mass/Vol] 97 mg/dL Normal [facility] Comment on above: Performed By: #### A 1C #### [facility] [address] [place] [address] Dr. Beltran Carranza HbA1c (Bld) [Mass fraction] 5.0 % Normal 4.5-6.2 [facility] Comment on above: Performed By: #### A 1C #### [facility] [address] [place] [address] Dr. Beltran Carranza LIPID PROFILEon 11-25-2022 CHOL-HDL RATIO NORM SEE BELOW Normal [facility] Comment on above: Result Comment: 3.3 - 4.4 LOW RISK 4.4 - 7.1 AVERAGE RISK 7.1 - 11.0 MODERATE RISK >11.0 HIGH RISK Performed By: #### C MP, LIPID, TSH, T7 #### [facility] [address] [place] [address] Dr. Beltran Carranza Cholesterol [Mass/Vol] 164 mg/dL Normal <=200 Th e [facility] Comment on above: Performed By: #### C MP, LIPID, TSH, T7 #### [facility] [address] [address] [address] Beltran Carranza Cholesterol in HDL [Mass/Vol] 37 mg/dL Critically low 40-60 [facility] Comment on above: Performed By: #### C MP, LIPID, TSH, T7 #### [facility] [address] [address] [address] Beltran Carranza Cholesterol in LDL [Mass/Vol] 102.4 mg/dL Normal [facility] Comment on above: Performed By: #### C MP, LIPID, TSH, T7 #### [facility] [address] [address] [address] Beltran Carranza Cholesterol.total/Chol esterol in HDL [Mass ratio] 4.4 {ratio} Normal [facility] Comment on above: Performed By: #### C MP, LIPID, TSH, T7 #### [facility] [address] [address] [address] Beltran Carranza HDL NORMAL > or = 60 mg/dl - LO W CARDIOVASCULAR RISK <40 mg/dl - HIGH CARDIOVASCULAR RISK Normal [facility] Comment on above: Performed By: #### C MP, LIPID, TSH, T7 #### [facility] [address] [address] [address] Beltran Carranza LDL CALC NORMAL SEE BELOW Normal [facility] Comment on above: Result Comment: <100 mg/dl OPTIMAL 100 - 129 mg/dl NEAR OR ABOVE OPTIMAL 130 - 159 mg/dl BORDERLINE HIGH 160 - 189 mg/dl HIGH >190 mg/dl VERY HIGH Performed By: #### C MP, LIPID, TSH, T7 #### [facility] [address] [address] [address] Beltran Carranza Triglyceride [Mass/Vol] 123 mg/dL Normal <=150 [facility] Comment on above: Performed By: #### C MP, LIPID, TSH, T7 #### [facility] [address] [address] [address] Beltran Carranza VLDL CALC 24.6 mg/dL Normal [facility] Comment on above: Performed By: #### C MP, LIPID, TSH, T7 #### [facility] [address] [place] [address] Dr. Beltran Carranza PROF 14(COMP METB)on 023 Albumin [Mass/Vol] 4.0 g/dL Normal 3.4-5.0 [facility] Comment on above: Performed By: #### C MP, LIPID, TSH, T7 #### [facility] [address] [place] [address] Dr. Beltran Carranza Albumin/Globulin [Mass ratio] 1.2 {ratio} Normal [facility] Comment on above: Performed By: #### C MP, LIPID, TSH, T7 #### [facility] [address] [place] [address] Dr. Beltran Carranza ALP [Catalytic activity/Vol] 68 U/L Normal 46-116 [facility] Comment on above: Performed By: #### C MP, LIPID, TSH, T7 #### [facility] [address] [place] [address] Dr. Beltran Carranza ALT [Catalytic activity/Vol] 24 U/L Normal 14-59 [facility] Comment on above: Performed By: #### C MP, LIPID, TSH, T7 #### [facility] [address] [place] [address] Dr. Beltran Carranza Anion gap [Moles/Vol] 14.2 mmol/L Normal [facility] Comment on above: Performed By: #### C MP, LIPID, TSH, T7 #### [facility] [address] [place] [address] Dr. Beltran Carranza AST [Catalytic activity/Vol] 21 U/L Normal 15-37 [facility] Comment on above: Performed By: #### C MP, LIPID, TSH, T7 #### [facility] [address] [place] [address] Dr. Beltran Carranza Bilirubin [Mass/Vol] 0.4 mg/dL Normal 0.2-1.0 [facility] Comment on above: Performed By: #### C MP, LIPID, TSH, T7 #### [facility] [address] [address] [address] Beltran Carranza Calcium [Mass/Vol] 9.3 mg/dL Normal 8.5-10.1 [facility] Comment on above: Performed By: #### C MP, LIPID, TSH, T7 #### [facility] [address] [address] [address] Beltran Carranza Chloride [Moles/Vol] 107 mmol/L Normal 98-107 [facility] Comment on above: Performed By: #### C MP, LIPID, TSH, T7 #### [facility] [address] [place] [address] Dr. Beltran Carranza CO2 [Moles/Vol] 27.6 mmol/L Normal 21.0-32.0 [facility] Comment on above: Performed By: #### C MP, LIPID, TSH, T7 #### [facility] [address] [place] [address] Dr. Beltran Carranza Creatinine [Mass/Vol] 0.64 mg/dL Normal 0.55-1.02 [facility] Comment on above: Performed By: #### C MP, LIPID, TSH, T7 #### [facility] [address] [place] [address] Dr. Beltran Carranza EGFR-AF JAPANESE >60 Normal >=60 [facility] Comment on above: Performed By: #### C MP, LIPID, TSH, T7 #### [facility] [address] [place] [address] Dr. Beltran Carranza EGFR-NON AF JAPANESE >60 Normal >=60 [facility] Comment on above: Performed By: #### C MP, LIPID, TSH, T7 #### [facility] [address] [place] [address] Dr. Beltran Carranza Globulin (S) [Mass/Vol] 3.3 g/dL Normal [facility] Comment on above: Performed By: #### C MP, LIPID, TSH, T7 #### [facility] [address] [place] [address] Dr. Beltran Carranza Glucose [Mass/Vol] 89 mg/dL Normal 74-106 [facility] Comment on above: Performed By: #### C MP, LIPID, TSH, T7 #### [facility] [address] [address] [address] Beltran Carranza Potassium [Moles/Vol] 4.8 mmol/L Normal 3.5-5.1 [facility] Comment on above: Performed By: #### C MP, LIPID, TSH, T7 #### [facility] [address] [place] [address] Dr. Beltran Carranza Protein [Mass/Vol] 7.3 g/dL Normal 6.4-8.2 [facility] Comment on above: Performed By: #### C MP, LIPID, TSH, T7 #### [facility] [address] [place] [address] Dr. Beltran Carranza Sodium [Moles/Vol] 144 mmol/L Normal 136-145 [facility] Comment on above: Performed By: #### C MP, LIPID, TSH, T7 #### [facility] [address] [place] [address] Dr. Beltran Carranza Urea nitrogen [Mass/Vol] 11.0 mg/dL Normal 7.0-18.0 [facility] Comment on above: Performed By: #### C MP, LIPID, TSH, T7 #### [facility] [address] [place] [address] Dr. Beltran Carranza Urea nitrogen/Creatinine [Mass ratio] 17.2 mg/mg Normal [facility] Comment on above: Performed By: #### C MP, LIPID, TSH, T7 #### [facility] [address] [place] [address] Dr. Beltran Carranza TSHon 11-25-2022 TSH 0.973 uIU/mL Normal 0.358-3.74 0 [facility] Comment on above: Performed By: #### C MP, LIPID, TSH, T7 #### [facility] [address] [place] [address] Dr. Beltran Kemp Urineon 11-18-2019 Bacteria identified Cx Nom (U) Microbiology PROCEDURE: Urine Culture [R1] SOURCE: U CleanCatch BODY SITE: COLLECTED DATE/TIME: 11/16/2019 13:09 EST RECEIVED DATE/TIME: 11/16/2019 14:05 EST START DATE/TIME: 11/16/2019 14:05 EST FREE TEXT SOURCE: Daryn uW PA-C, PA-C, Daryn FINAL REPORTS Final Report [] Verified Date/Time: 11/18/2019 12:50 EDT <10,000 cfu/ml Mixed skin contaminants Performing Locations R1: This test was performed at: [facility], [address] [place] [address], [phone] , Normal [facility] Comment on above: Performed By: #### [id number] #### [facility] [address] [place] [id number] Coding Summary.on 11-18-2019 Coding Summary. CODING DATE: 020 FINAL [facility] STATUS: Home (Routine DC) PAYOR: Commercial Insurance ADMIT DX: REASON FOR VISIT DX: M54.5 Low back pain R82.998 Other abnormal findings in urine R39.15 Urgency of urination FINAL DX: PRINCIPAL: M54.5 Low back pain SECONDARY: R30.0 Dysuria Z87.440 Personal history of urinary (tract) infections Z88.2 Allergy status to sulfonamides status PYMT PROC APC STAT DESCRIPTION DOCTOR NAME DATE NOTE: The code number assigned matches the documented diagnosis and / or procedure in the patient's chart. However, the narrative phrase printed from the coding software may appear abbreviated, or result in slightly different terminology. Coded By: Malini Lopez Date Saved: 11/18/2019 09:19 am Normal [facility] ED Clinical Summaryon 2019 ED Clinical Summary (Inserted Image. Maddie ble to display) [address] [address] ED Clinical Summary Person Information Name: MAIDA CHERRY [place] Age: 34 Years : 1985 Sex: Female Language: Turkish PCP: Harry Mohan MD Marital Status: Phone: [phone] Visit Id: Visit Reason: Hematuria; Back pain; UPPER AND LOWER BACK PAIN Speciality: Acuity: 3 Enc Type: Emergency Med Service: Emergency Arrival: 11/16/2019 12:45:56 Discharge: 11/16/2019 13:52:07 LOS: 000 01:07 Checkin: 11/16/2019 12:45:56 Checkout: 11/16/2019 13:52:07 Dispo Type: Home (Routine DC) EVENTS: Event Name Event Status Request Date/Time Start Date/Time Complete Date/Time Arrive Complete 11/16/2019 12:45:56 11/16/2019 12:45:56 11/16/2019 12:45:56 Document Home Meds Complete 11/16/2019 12:45:56 11/16/2019 13:13:20 11/16/2019 13:13:20 Triage Complete 11/16/2019 12:45:56 11/16/2019 12:59:44 11/16/2019 12:59:44 Bed Assign Complete 11/16/2019 12:59:50 11/16/2019 12:59:50 11/16/2019 12:59:50 Dr Exam Complete 11/16/2019 12:59:50 11/16/2019 13:02:56 11/16/2019 13:02:56 RN Exam Complete 11/16/2019 12:59:50 11/16/2019 13:13:13 11/16/2019 13:13:13 Registration Complete 11/16/2019 13:02:56 11/16/2019 13:30:53 11/16/2019 13:30:53 Dr Exam Complete 11/16/2019 13:06:55 11/16/2019 13:06:55 11/16/2019 13:06:55 Pending Labs Complete 11/16/2019 13:08:57 11/16/2019 13:35:51 Lab Complete 11/16/2019 13:08:58 11/16/2019 13:35:51 Urine Collect Complete 11/16/2019 13:08:58 11/16/2019 13:35:51 Meds Admin Complete 11/16/2019 13:15:18 11/16/2019 13:20:15 Reg Complete Request 11/16/2019 13:30:53 Reg Bed Request Complete 11/16/2019 13:30:53 11/16/2019 13:30:53 11/16/2019 13:30:53 Pending Labs Request 11/16/2019 13:35:38 Lab Request 11/16/2019 13:35:38 Discharge Complete 11/16/2019 13:47:45 11/16/2019 13:52:13 11/16/2019 13:52:13 Transfer Complete 11/16/2019 13:52:13 11/16/2019 13:52:13 11/16/2019 13:52:13 ADDRESS: [address] [place] [address] [place] [phone] PHYS DOC NOTES: MEDICAL INFORMATION: Prescriptions Given: New Medications [id number], [address], [place] [id number], [phone] acetaminophen-hydrocodone (Richlands 325 mg-5 mg oral tablet) 1 Tablets By Mouth 3 times a day as needed for pain. Refills: 0. cyclobenzaprine (cyclobenzaprine 10 mg Tab) 1 Tablets By Mouth 3 times a day as needed for spasm. Refills: 0. phenazopyridine (Pyridium 200 mg Tab) 1 Tablets By Mouth 2 times a day for 2 Days. Refills: 0. PATIENT EDUCATION INFORMATION: Instructions: Dysuria; Back Pain, Adult, [id number] Follow up: With: Address: When: Harry Mohan [facility], [place] [address] Business (1) In 3 days 11/19/2019 Comments: Please follow-up with Dr. Mohan, call the office schedule an appointment to be seen 3 days or sooner for continued care, take your Flexeril, Richlands, and Pyridium as prescribed, drink plenty of water for hydration, return back to the emergency room for any worsening symptoms, concerns, or complications. DIAGNOSIS: 1:Dysuria; 2:Lumbar back pain Normal [facility] ED Note-Physicianon 11-16-19 ED Note-Physician Basic Information Time Seen: Daryn Wu PA-C 11/16/2019 13:02 Chief Complaint Patient complains of 8/10 bilateral lower back pain that started Monday, compains of chills last night and orange colored urine. History of Present Illness Patient is a 34-year-old female presents emergency room for lower back pain, and dark-colored urine, this started on Wednesday, patient states she does have a history of back pain, was seen by her chiropractor yesterday which had no relief with the treatment, but no worsening pain. Patient states she has urgency and frequency, but has not noticed any hematuria or dysuria. Patient states her urine is a dark color, states she tries to drink water for hydration, states she has had some chills but had no fevers at home. Patient states overall she is healthy, she is allergic to sulfa medications, unable to take Bactrim. Patient states he does have a history of urine tract infection, had one last month, cannot recall the antibiotic she was on which helped relieve the symptoms. Patient denies chest pain, shortness of breath, abdominal pain, nausea vomiting, worsening back pain, saddle anesthesia, bowel bladder dysfunction, paresthesia, or leg weakness. Review of Systems All organ systems reviewed. Pertinent positive and negative findings were mentioned in the HPI . Physical Exam Vitals & Measurements T: 37.0 ?C (Oral) HR: 81(Peripheral) RR: 17 BP: 138/90 SpO2: 99% HT: 160 cm WT: 112 kg BMI: 43.75 General: alert, no acute distress, paleness or diaphoresis, good eye contact, answers questions appropriately and in complete sentences, and follows commands appropriately. ENMT: TM's clear, oral mucosa moist, no pharyngeal erythema or exudate Cardiovascular: regular rate and rhythm, normal peripheral perfusion Respiratory: Lungs CTA, respirations non labored Abdomen:, Nondistended, nontender, rebound or guarding, positive bowel sounds, no left or right CVA tenderness. Spine: Low lumbar paraspinous tenderness, no midline tenderness, the pain is deep aching pain on exam, does not radiate, no worsening pain on exam, skin is intact without any redness, abrasions, rashes, ecchymosis, crepitus. Bilateral straight leg test. Bilateral sensation, DTRs, and strength are intact. No saddle anesthesia, bowel bladder dysfunction, paresthesias, or leg weakness. Extremities: no deformity, no trauma. Patient has full range of motion of all extremities, without pain or weakness, patient is neurovascular intact. Neurological: oriented x 4, LOC appropriate for age, CN II-XII intact, motor strength equal & normal bilaterally, sensation equal & normal bilaterally, speech normal Medical Decision Making Vital signs reviewed. Nursing notes reviewed. Medical record reviewed. Urinalysis for possible urinary tract infection, IM Toradol 30 mg, patient declined any nausea medication at this time. No imaging or additional labs are indicated at this time. Discussed with patient urinalysis findings of color urine, slightly cloudy, + bacteria, no leukocytes or nitrates. 34-year-old female presents emergency room for lumbar back pain with muscle tightness and dysuria, urine within normal limits, patient verbally understands that there will be a urine culture done, should get results within 24 to 48 hours, no antibiotics indicated at this time. No acute abdomen. No flank pain. No saddle anesthesia, bowel bladder dysfunction, or paresthesias. Patient was given prescriptions for Richlands, Flexeril, and Pyridium. Patient declined a work excuse note at this time. Patient was instructed to follow-up with Dr. Mohan, call the office schedule an appointment to be seen 3 days or sooner for continued care, take your Flexeril, Richlands, and Pyridium as prescribed, drink plenty of water for hydration, return back to the emergency room for any worsening symptoms, concerns, or complications, and patient agrees with plan. Assessment/Plan 1. Dysuria (R30.0: Dysuria) 2. Lumbar back pain (M54.5: Low back pain) Ordered: acetaminophen-hydrocodone, 1 tab(s), Oral, TID for pain, 15 tab(s), Refill(s) 0, [id number], 160, cm, 11/16/19 12:57:00 EST, Height/Length Measured, 112, kg, 11/16/19 12:57:00 EST, Weight Measured Orders: cyclobenzaprine, 10 mg = 1 tab(s), Oral, TID, PRN for spasm, # 30 tab(s), Refills(s) 0, Pharmacy: [facility]/pharmacy #[id number], 160, cm, 11/16/19 12:57:00 EST, Height/Length Measured, 112, kg, 11/16/19 12:57:00 EST, Weight Measured ketorolac, 30 mg = 1 mL, Injection, IntraMuscular, Once, Stop date 11/16/19 13:14:00 EST, STAT, Start date 11/16/19 13:14:00 EST phenazopyridine, 200 mg = 1 tab(s), Oral, BID, X 2 day(s), # 4 tab(s), Refills(s) 0, Pharmacy: [facility]/pharmacy #[id number], 160, cm, 11/16/19 12:57:00 EST, Height/Length Measured, 112, kg, 11/16/19 12:57:00 EST, Weight Measured UA With Cult Reflex Urine Culture Medications Administered Given ketorolac 30 mg/mL Inj 1 mL, 30 mg, IntraMuscular Disposition Plan Patient Discharge Condition Stable Discharge Prescription List Prescriptions cyclobenzaprine 10 mg Tab, 10 mg= 1 tab(s), Oral, TID, PRN Richlands 325 mg-5 mg oral tablet, 1 tab(s), Oral, TID, PRN Pyridium 200 mg Tab, 200 mg= 1 tab(s), Oral, BID Follow-up With When Contact Information Harry Mohan In 3 days 11/19/2019 EDT [facility] Business (1) Additional Instructions: Please follow-up with Dr. Mohan, call the office schedule an appointment to be seen 3 days or sooner for continued care, take your Flexeril, Richlands, and Pyridium as prescribed, drink plenty of water for hydration, return back to the emergency room for any worsening symptoms, concerns, or complications. Patient Education Dysuria Back Pain, Adult, [id number] Attestation Patient was treated and evaluated by the Physician [employer] Inspector. The attending physician was Dr. Moon in the Emergency Department at all times and supervised care. The case was discussed with the attending physician and diagnostics were reviewed as needed. Problem List/Past Medical History Ongoing No qualifying data Historical No qualifying data Medications Inpatient No active inpatient medications Home cyclobenzaprine 10 mg Tab, 10 mg= 1 tab(s), Oral, TID, PRN Richlands 325 mg-5 mg oral tablet, 1 tab(s), Oral, TID, PRN Pyridium 200 mg Tab, 200 mg= 1 tab(s), Oral, BID Allergies sulfa drugs (Hives) Lab Results UA Spec Desc: Clean Catch (11/16/19 13:11:00) UA Color: Dark Yellow3 Abnormal (11/16/19 13:11:00) UA Clarity: Slightly Cloudy3 Abnormal (11/16/19 13:11:00) UA Spec Grav: >=1.030 (11/16/19 13:11:00) UA pH: 6.0 (11/16/19 13:11:00) UA Protein: NEGATIVE1 (11/16/19 13:11:00) UA Glucose: NEGATIVE1 (11/16/19 13:11:00) UA Ketones: NEGATIVE1 (11/16/19 13:11:00) UA Bili: NEGATIVE1 (11/16/19 13:11:00) UA Blood: NEGATIVE1 (11/16/19 13:11:00) UA Nitrite: NEGATIVE1 (11/16/19 13:11:00) UA Urobilinogen: 0.2 (11/16/19 13:11:00) UA Leuk Est: NEGATIVE1 (11/16/19 13:11:00) UA RBC: 0-3 (11/16/19 13:11:00) UA Squam Epithelial: 5-8 (11/16/19 13:11:00) UA WBC: 0-5 (11/16/19 13:11:00) UA Bacteria: 1+ Abnormal (11/16/19 13:11:00) UA Mucous: 1+ (11/16/19 13:11:00) Diagnostic Results No qualifying data available. Normal [facility] Comment on above: Result Comment: Elec tronically Signed By: Daryn Wu PA-C\.br\Date and Time Signed: 11/16/19 13:53 EST\.br\Electronically Co-Signed By: Mario Moon MD\.br\Date and Time Co-Signed: 11/16/19 17:26 EST ED Patient Education Noteon 11-16-2019 ED Patient Education Note Family Medicine Dysuria Dysuria is the medical term for pain with urination. There are many causes for dysuria, but urinary tract infection is the most common. If a urinalysis was performed it can show that there is a urinary tract infection. A urine culture confirms that you or your child is sick. You will need to follow up with a healthcare provider because: ? If a urine culture was done you will need to know the culture results and treatment recommendations. ? If the urine culture was positive, you or your child will need to be put on antibiotics or know if the antibiotics prescribed are the right antibiotics for your urinary tract infection. ? If the urine culture is negative (no urinary tract infection), then other causes may need to be explored or antibiotics need to be stopped. Today laboratory work may have been done and there does not seem to be an infection. If cultures were done they will take at least 24 to 48 hours to be completed. Today x-rays may have been taken and they read as normal. No cause can be found for the problems. The x-rays may be re-read by a radiologist and you will be contacted if additional findings are made. You or your child may have been put on medications to help with this problem until you can see your primary caregiver. If the problems get better, see your primary caregiver if the problems return. If you were given antibiotics (medications which kill germs), take all of the mediations as directed for the full course of treatment. If laboratory work was done, you need to find the results. Leave a telephone number where you can be reached. If this is not possible, make sure you find out how you are to get test results. HOME CARE INSTRUCTIONS ? Drink lots of fluids. For adults, drink eight, 8 ounce glasses of clear juice or water a day. For children, replace fluids as suggested by your caregiver. ? Empty the bladder often. Avoid holding urine for long periods of time. ? After a bowel movement, women should cleanse front to back, using each tissue only once. ? Empty your bladder before and after sexual intercourse. ? Take all the medicine given to you until it is gone. You may feel better in a few days, but TAKE ALL MEDICINE. ? Avoid caffeine, tea, alcohol and carbonated beverages, because they tend to irritate the bladder. ? In men, alcohol may irritate the prostate. ? Only take ojus-qka-wjunjnx or prescription medicines for pain, discomfort, or fever as directed by your caregiver. ? If your caregiver has given you a follow-up appointment, it is very important to keep that appointment. Not keeping the appointment could result in a chronic or permanent injury, pain, and disability. If there is any problem keeping the appointment, you must call back to this facility for assistance. SEEK IMMEDIATE MEDICAL CARE IF: ? Back pain develops. ? A fever develops. ? There is nausea (feeling sick to your stomach) or vomiting (throwing up). ? Problems are no better with medications or are getting worse. MAKE SURE YOU: ? Understand these instructions. ? Will watch your condition. ? Will get help right away if you are not doing well or get worse. Document Released: 05/26/2005 Document Revised: 11/19/2012 Document Reviewed: 04/02/2009 ExitCare? Patient Information ?2014 [employer]. This information is not intended to replace advice given to you by your health care provider. Make sure you discuss any questions you have with your health care provider. Back Pain, Adult Back pain is very common. The pain often gets better over time. The cause of back pain is usually not dangerous. Most people can learn to manage their back pain on their own. HOME CARE ? Stay active. Start with short walks on flat ground if you can. Try to walk farther each day. ? Do not sit, drive, or financial analysis advisor one place for more than 30 minutes. Do not stay in bed. ? Do not avoid exercise or work. Activity can help your back heal faster. ? Be careful when you bend or lift an object. Bend at your knees, keep the object close to you, and do not twist. ? Sleep on a firm mattress. Lie on your side, and bend your knees. If you lie on your back, put a pillow under your knees. ? Only take medicines as told by your doctor. ? Put ice on the injured area. ? Put ice in a plastic bag. ? Place a towel between your skin and the bag. ? Leave the ice on for 15-20 minutes, 03-04 times a day for the first 2 to 3 days. After that, you can switch between ice and heat packs. ? Ask your doctor about back exercises or massage. ? Avoid feeling anxious or stressed. Find good ways to deal with stress, such as exercise. GET HELP RIGHT AWAY IF: ? Your pain does not go away with rest or medicine. ? Your pain does not go away in 1 week. ? You have new problems. ? You do not feel well. ? The pain spreads into your legs. ? You cannot control when you poop (bowel movement) or pee (urinate). ? Your arms or legs feel weak or lose feeling (numbness). ? You feel sick to your stomach (nauseous) or throw up (vomit). ? You have belly (abdominal) pain. ? You feel like you may pass out (faint). MAKE SURE YOU: ? Understand these instructions. ? Will watch your condition. ? Will get help right away if you are not doing well or get worse. Document Released: 02/13/2009 Document Revised: 11/19/2012 Document Reviewed: 12/30/2014 ExitCare? Patient Information ?2015 [employer]. This information is not intended to replace advice given to you by your health care provider. Make sure you discuss any questions you have with your health care provider. Normal [facility] ED Patient Summaryon 020 ED Patient Summary (Inserted Image. Maddie ble to display) [place] [id number] Patient Discharge Instructions Person Information Name: MAIDA CHERRY Age: 34 Years Arrival Date: 11/16/2019 12:45:56 Discharge Diagnosis: 1:Dysuria; 2:Lumbar back pain Primary Care Physician: Harry Mohan MD Provider Information Primary Provider: Red GUZMAN, Mario Advanced Engineer Technician:Daryn Wu PA-C The exam and treatment you received in the Emergency Department were for an urgent problem and are not intended as complete care. It is important that you follow up with a doctor, nurse practitioner, or physician?s clinical nursing assistant for ongoing care. If your symptoms become worse or you do not improve as expected and you are unable to reach your usual health care provider, you should return to the Emergency Department. We are available 24 hours a day. MAIDA CHERRY has been given the following list of patient education materials, prescriptions and follow-up instructions: Follow-up Instructions: With: Address: When: Harry Mohan [address] [place] [address], [place] [address] Business (1) In 3 days 11/19/2019 Comments: Please follow-up with Dr. Mohan, call the office schedule an appointment to be seen 3 days or sooner for continued care, take your Flexeril, Richlands, and Pyridium as prescribed, drink plenty of water for hydration, return back to the emergency room for any worsening symptoms, concerns, or complications. In the event that this physician does not participate in your insurance network, please consult with your insurance company to find a nearby participating provider. Patient Education Materials: Dysuria; Back Pain, Adult, Kbhe-nf-Whyu A MESSAGE TO ALL PATIENTS REGARDING OPIOIDS PRESCRIPTION OPIOIDS: WHAT YOU NEED TO KNOW Prescription opioids can be used to help relieve hxxxtscr-lc-cvlvcw pain and are often prescribed following a surgery or injury, or for certain health conditions. These medications can be an important part of the treatment but also come with serious risks. It is important to work with your healthcare provider to make sure you are getting the safest, most effective care. WHAT ARE THE RISKS AND SIDE EFFECTS OF OPIOID USE? Prescription opioids carry serious risks of addiction and overdose, especially with prolonged use. An opioid overdose, often marked by slowed breathing, can cause sudden . The use of prescription opioids can have a number of side effects as well, even when taken as directed: ? Tolerance?meaning you might need to take more of the medication for the same pain relief ? Physical dependence?meaning you have symptoms of withdrawal when a medication is stopped ? Increased sensitivity to pain ? Constipation ? Nausea, vomiting, and dry mouth ? Sleepiness and dizziness ? Confusion ? Depression ? Low levels of testosterone that can result in lower sex drive, energy, and strength ? Itching and sweating RISKS ARE GREATER WITH: ? History of drug misuse, substance use disorder, or overdose ? Mental health conditions (such as depression or anxiety) ? Sleep apnea ? Older age (65 years and older) ? Avoid alcohol while taking prescription opioids. Also, unless specifically advised by your health care provider, medications to avoid include: ? Benzodiazepines (such as Xanax or Valium) ? Muscle relaxants (such as Soma or Flexeril) ? Hypnotics (such as Ambien or Lunesta) ? Other prescription opioids KNOW YOUR OPTIONS Talk to your health care provider about ways to manage your pain that don?t involve prescription opioids. Some of these options may actually work better and have fewer risks and side effects. Options may include: ? Pain relievers such as acetaminophen, ibuprofen, and naproxen ? Some medication that are also used for depression or seizures ? Physical therapy and exercise ? Cognitive behavioral therapy, a psychological, goal-directed approach, in which patients learn how to modify physical, behavioral, and emotional triggers of pain and stress. IF YOU ARE PRESCRIBED OPIOIDS FOR PAIN: ? Never take opioids in greater amounts or more often than prescribed. ? Follow up with your primary health care provider. o Work together to create a plan on how to manage your pain. o Talk about ways to help manage your pain that don?t involve prescription opioids. o Talk about any and all concerns and side effects. ? Help prevent misuse and abuse o Never sell or share prescription opioids. o Never use another person?s prescription opioids. ? Store prescription opioids in a secure place and out of reach of others (this may include visitors, children, friends, and family). ? Safely dispose of unused prescription opioids: Find your community drug take-back program or your pharmacy mail-back program, or flush them down the toilet, following guidance from the Food and Drug Administration (www.fda.gov/Drugs/Resourc esForYou). ? Visit www.cdc.gov/drugoverdose to learn about the risks of opioids abuse and overdose. ? If you believe you may be struggling with addiction, tell your health specialist wound care and ask for guidance or call [facility]?S National Helpline at 2-328-939-LZZX. x Source: [place] Department of Health and Human Services/Center for Disease Control & Prevention [facility] Medications Given: Medication Dose Route ketorolac 30.00 mg IntraMuscular Left Deltoid Medication Information: New Medications [id number], [address], [place] [id number], [phone] acetaminophen-hydrocodone (Richlands 325 mg-5 mg oral tablet) 1 Tablets By Mouth 3 times a day as needed for pain. Refills: 0. cyclobenzaprine (cyclobenzaprine 10 mg Tab) 1 Tablets By Mouth 3 times a day as needed for spasm. Refills: 0. phenazopyridine (Pyridium 200 mg Tab) 1 Tablets By Mouth 2 times a day for 2 Days. Refills: 0. Comment: Pharmacy Information: Thank you for choosing [facility] Patient Education Materials: Dysuria Dysuria is the medical term for pain with urination. There are many causes for dysuria, but urinary tract infection is the most common. If a urinalysis was performed it can show that there is a urinary tract infection. A urine culture confirms that you or your child is sick. You will need to follow up with a healthcare provider because: ? If a urine culture was done you will need to know the culture results and treatment recommendations. ? If the urine culture was positive, you or your child will need to be put on antibiotics or know if the antibiotics prescribed are the right antibiotics for your urinary tract infection. ? If the urine culture is negative (no urinary tract infection), then other causes may need to be explored or antibiotics need to be stopped. Today laboratory work may have been done and there does not seem to be an infection. If cultures were done they will take at least 24 to 48 hours to be completed. Today x-rays may have been taken and they read as normal. No cause can be found for the problems. The x-rays may be re-read by a radiologist and you will be contacted if additional findings are made. You or your child may have been put on medications to help with this problem until you can see your primary caregiver. If the problems get better, see your primary caregiver if the problems return. If you were given antibiotics (medications which kill germs), take all of the mediations as directed for the full course of treatment. If laboratory work was done, you need to find the results. Leave a telephone number where you can be reached. If this is not possible, make sure you find out how you are to get test results. HOME CARE INSTRUCTIONS ? Drink lots of fluids. For adults, drink eight, 8 ounce glasses of clear juice or water a day. For children, replace fluids as suggested by your caregiver. ? Empty the bladder often. Avoid holding urine for long periods of time. ? After a bowel movement, women should cleanse front to back, using each tissue only once. ? Empty your bladder before and after sexual intercourse. ? Take all the medicine given to you until it is gone. You may feel better in a few days, but TAKE ALL MEDICINE. ? Avoid caffeine, tea, alcohol and carbonated beverages, because they tend to irritate the bladder. ? In men, alcohol may irritate the prostate. ? Only take besa-ami-bjydnff or prescription medicines for pain, discomfort, or fever as directed by your caregiver. ? If your caregiver has given you a follow-up appointment, it is very important to keep that appointment. Not keeping the appointment could result in a chronic or permanent injury, pain, and disability. If there is any problem keeping the appointment, you must call back to this facility for assistance. SEEK IMMEDIATE MEDICAL CARE IF: ? Back pain develops. ? A fever develops. ? There is nausea (feeling sick to your stomach) or vomiting (throwing up). ? Problems are no better with medications or are getting worse. MAKE SURE YOU: ? Understand these instructions. ? Will watch your condition. ? Will get help right away if you are not doing well or get worse. Document Released: 05/26/2005 Document Revised: 11/19/2012 Document Reviewed: 04/02/2009 ExitCare? Patient Information ?2015 [employer]. This information is not intended to replace advice given to you by your health care provider. Make sure you discuss any questions you have with your health care provider. Back Pain, Adult Back pain is very common. The pain often gets better over time. The cause of back pain is usually not dangerous. Most people can learn to manage their back pain on their own. HOME CARE ? Stay active. Start with short walks on flat ground if you can. Try to walk farther each day. ? Do not sit, drive, or financial analysis advisor one place for more than 30 minutes. Do not stay in bed. ? Do not avoid exercise or work. Activity can help your back heal faster. ? Be careful when you bend or lift an object. Bend at your knees, keep the object close to you, and do not twist. ? Sleep on a firm mattress. Lie on your side, and bend your knees. If you lie on your back, put a pillow under your knees. ? Only take medicines as told by your doctor. ? Put ice on the injured area. ? Put ice in a plastic bag. ? Place a towel between your skin and the bag. ? Leave the ice on for 15-20 minutes, 03-04 times a day for the first 2 to 3 days. After that, you can switch between ice and heat packs. ? Ask your doctor about back exercises or massage. ? Avoid feeling anxious or stressed. Find good ways to deal with stress, such as exercise. GET HELP RIGHT AWAY IF: ? Your pain does not go away with rest or medicine. ? Your pain does not go away in 1 week. ? You have new problems. ? You do not feel well. ? The pain spreads into your legs. ? You cannot control when you poop (bowel movement) or pee (urinate). ? Your arms or legs feel weak or lose feeling (numbness). ? You feel sick to your stomach (nauseous) or throw up (vomit). ? You have belly (abdominal) pain. ? You feel like you may pass out (faint). MAKE SURE YOU: ? Understand these instructions. ? Will watch your condition. ? Will get help right away if you are not doing well or get worse. Document Released: 02/13/2009 Document Revised: 11/19/2012 Document Reviewed: 12/30/2014 ExitCare? Patient Information ?2015 [employer]. This information is not intended to replace advice given to you by your health care provider. Make sure you discuss any questions you have with your health care provider. JO ANN Llamas JENNA N , have received the following patient education materials/instructions and have verbalized understanding: Patient Education Materials: Dysuria; Back Pain, Adult, Cypj-tp-Mmeg Follow-up Instructions: With: Address: When: Harry Mohan [address] [place] [address], [place] [address] Business (1) In 3 days 11/19/2019 Comments: Please follow-up with Dr. Mohan, call the office schedule an appointment to be seen 3 days or sooner for continued care, take your Flexeril, [place], and Pyridium as prescribed, drink plenty of water for hydration, return back to the emergency room for any worsening symptoms, concerns, or complications. Patient Signature __ Date Clinician/Nurse Signature Date 11/16/2019 13:52:15 Normal [facility] UA With Cult Reflexon 2019 Bacteria LM Ql (Urine sed) 1+ /HPF Abnormal Trace [facility] Comment on above: Performed By: #### 1 [id number] #### [facility] [address] [place] [address] Bilirubin Ql (U) Negative Normal Negative [facility] Comment on above: Performed By: #### 1 [id number] #### [facility] [address] [place] [address] Clarity (U) SL CLOUDY Abnormal Clear [facility] Comment on above: Performed By: #### 1 [id number] #### [facility] [address] [place] [address] Color (U) DARK YELLO Abnormal Yellow [facility] Comment on above: Performed By: #### 1 [id number] #### [facility] [address] [place] [address] Epithelial cells.squamous LM.HPF (Urine sed) [#/Area] 5-8 Normal 0-2 [facility] Comment on above: Performed By: #### 1 [id number] #### [facility] [address] [place] [address] Glucose Test strip (U) [Mass/Vol] Negative Normal Negative [facility] Comment on above: Performed By: #### 1 [id number] #### [facility] [address] [place] [address] Hemoglobin Ql (U) Negative Normal Negative [facility] Comment on above: Performed By: #### 1 [id number] #### [facility] [address] [place] [address] Ketones (U) [Mass/Vol] Negative Normal Negative [facility] Comment on above: Performed By: #### 1 [id number] #### [facility] [address] [place] [address] [place].plasma/[place] .RBC (Bld) [Mass ratio] 0-3 Normal 0-3 [facility] Comment on above: Performed By: #### 1 [id number] #### [facility] [address] [place] [address] Mucus Ql (Urine sed) 1+ Normal Fish [facility] Comment on above: Performed By: #### 1 [id number] #### [facility] [address] [place] [address] Nitrite Ql (U) Negative Normal Negative [facility] Comment on above: Performed By: #### 1 [id number] #### [facility] [address] [place] [address] pH (U) 6.0 [pH] 5.0-9.0 [facility] Comment on above: Performed By: #### 1 [id number] #### [facility] [address] [place] [address] Protein (U) [Mass/Vol] Negative Normal Negative [facility] Comment on above: Performed By: #### 1 [id number] #### [facility] [address] [place] [address] Specific gravity (U) [Rel density] >=1.030 1.005-1.03 0 [facility] Comment on above: Performed By: #### 1 [id number] #### [facility] [address] [place] [address] UA Spec Desc Clean Catch Normal [facility] Comment on above: Performed By: #### 1 [id number] #### [facility] [address] [place] [address] Urobilinogen Qn (U) 0.2 {Ulysses'U}/dL Normal 0.0-1.0 [facility] Comment on above: Performed By: #### 1 [id number] #### [facility] [address] [place] [address] WBC Auto Ql (U) Negative Normal Negative [facility] Comment on above: Performed By: #### 1 [id number] #### [facility] [address] [place] [address] WBC LM.HPF (Urine sed) [#/Area] 0-5 Normal 0-5 [facility] Comment on above: Performed By: #### 1 [id number] #### [facility] [address] [place] [address] Vital Signs Date Time Vital Sign Value Performing Clinician Facility 08-26-2024 09:34-0500 Body height 160 cm Chandan Hong MD Work Phone: [facility] 08-26-2024 09:34-0500 Body mass index (BMI) [Ratio] 34.54 kg/m2 Chandan Hong MD Work Phone: [facility] 08-26-2024 09:34-0500 Body weight 88.45 kg Chandan Hong MD Work Phone: [facility] 08-26-2024 09:34-0500 Diastolic blood pressure 84 mm[Hg] Chandan Hong MD Work Phone: [facility] 08-26-2024 09:34-0500 Systolic blood pressure 112 mm[Hg] Chandan Hong MD Work Phone: [facility] 08-24-2024 12:00-0500 Body temperature 99.1 [degF] Parvez Vasquez MD Work Phone: [facility] 08-24-2024 12:00-0500 Diastolic blood pressure 77 mm[Hg] Parvez Vasquez MD Work Phone: [facility] 08-24-2024 12:00-0500 Heart rate 86 /min Parvez Vasquez MD Work Phone: [facility] 08-24-2024 12:00-0500 Respiratory rate 16 /min Parvez Vasquez MD Work Phone: [facility] 08-24-2024 12:00-0500 SaO2% (BldA) [Mass fraction] 97 % Parvez Vasquez MD Work Phone: [facility] 08-24-2024 12:00-0500 Systolic blood pressure 114 mm[Hg] Parvez Vasquez MD Work Phone: [facility] 08-23-2024 00:14-0500 Body height 160 cm Parvez Vasquez MD Work Phone: [facility] 08-23-2024 00:14-0500 Body mass index (BMI) [Ratio] 35.62 kg/m2 Parvez Vasquez MD Work Phone: [facility] 08-23-2024 00:14-0500 Body weight 91.2 kg Parvez Vasquez MD Work Phone: [facility] 10-27-2023 11:18-0500 Body height 160.02 cm MD Harry Mohan Work Phone: [facility] 10-27-2023 11:18-0500 Body mass index (BMI) [Ratio] 49.4 kg/m2 MD Harry Mohan Work Phone: [facility] 10-27-2023 11:18-0500 Body temperature 98.2 [degF] MD Harry Mohan Work Phone: [facility] 10-27-2023 11:18-0500 Body weight 126.55 kg MD Harry Mohan Work Phone: [facility] 10-27-2023 11:18-0500 Diastolic blood pressure 84 mm[Hg] MD Harry Mohan Work Phone: [facility] 10-27-2023 11:18-0500 Heart rate 81 /min MD Harry Mohan Work Phone: [facility] 10-27-2023 11:18-0500 Respiratory rate 18 /min MD Harry Mohan Work Phone: [facility] 10-27-2023 11:18-0500 SaO2% (BldA) [Mass fraction] 98 % MD Harry Mohan Work Phone: [facility] 10-27-2023 11:18-0500 Systolic blood pressure 118 mm[Hg] MD Harry Mohan Work Phone: [facility] 09-06-2023 13:38-0500 Diastolic blood pressure 83 mm[Hg] MD Harry Mohan Work Phone: [facility] 09-06-2023 13:38-0500 Heart rate 97 /min MD Harry Mohan Work Phone: [facility] [facility] 09-06-2023 13:38-0500 Respiratory rate 16 /min MD Harry Mohan Work Phone: [facility] 09-06-2023 13:38-0500 SaO2% (BldA) [Mass fraction] 99 % MD Harry Mohan Work Phone: [facility] 09-06-2023 13:38-0500 Systolic blood pressure 133 mm[Hg] MD Harry Mohan Work Phone: [facility] 09-06-2023 11:09-0500 Inhaled oxygen flow rate 2 L/min MD Harry Mohan Work Phone: [facility] 09-06-2023 09:39-0500 Body temperature 97.9 [degF] MD Harry Mohan Work Phone: [facility] 09-06-2023 07:09-0500 Body height 160.02 cm MD Harry Mohan Work Phone: [facility] 09-06-2023 07:09-0500 Body mass index (BMI) [Ratio] 47.6 kg/m2 MD Harry Mohan Work Phone: [facility] 09-06-2023 07:09-0500 Body weight 122 kg MD Harry Mohan Work Phone: [facility] 08-08-2023 13:15-0500 Body height 160.02 cm MD Harry Mohan Work Phone: [facility] 08-08-2023 13:15-0500 Body weight 120.65 kg MD Harry Mohan Work Phone: [facility] 08-08-2023 13:15-0500 Diastolic blood pressure 96 mm[Hg] MD Harry Mohan Work Phone: [facility] 08-08-2023 13:15-0500 Systolic blood pressure 138 mm[Hg] MD Harry Mohan Work Phone: [facility] 07-26-2023 19:56-0500 Diastolic blood pressure 79 mm[Hg] MD Harry Mohan Work Phone: [facility] 07-26-2023 19:56-0500 Heart rate 91 /min MD Harry Mohan Work Phone: [facility] 07-26-2023 19:56-0500 Respiratory rate 17 /min MD Harry Mohan Work Phone: [facility] 07-26-2023 19:56-0500 SaO2% (BldA) [Mass fraction] 95 % MD Harry Mohan Work Phone: [facility] 07-26-2023 19:56-0500 Systolic blood pressure 132 mm[Hg] MD Harry Mohan Work Phone: [facility] 07-26-2023 16:55-0500 Body height 160.02 cm MD Harry Mohan Work Phone: [facility] 07-26-2023 16:55-0500 Body temperature 98.2 [degF] MD Harry Mohan Work Phone: [facility] 07-26-2023 16:55-0500 Body weight 117.93 kg MD Harry Mohan Work Phone: [facility] 07-18-2023 04:05-0500 Diastolic blood pressure 63 mm[Hg] MD Harry Mohan Work Phone: [facility] 07-18-2023 04:05-0500 Heart rate 96 /min MD Harry Mohan Work Phone: [facility] 07-18-2023 04:05-0500 Respiratory rate 18 /min MD Harry Mohan Work Phone: [facility] 07-18-2023 04:05-0500 SaO2% (BldA) [Mass fraction] 97 % MD Harry Mohan Work Phone: [facility] 07-18-2023 04:05-0500 Systolic blood pressure 126 mm[Hg] MD Harry Mohan Work Phone: [facility] 07-18-2023 02:04-0500 Body height 160.02 cm MD Harry Mohan Work Phone: [facility] 07-18-2023 02:04-0500 Body temperature 99.6 [degF] MD Harry Mohan Work Phone: [facility] 07-18-2023 02:04-0500 Body weight 121 kg MD Harry Mohan Work Phone: [facility] Encounters Encounter Date Encounter Type Care Provider Facility Start: 01-22-2025 End: 01-22-2025 ambulatory [facility] Start: 08-26-2024 End: 08-26-2024 Postop follow up visit related to original px Chandan Bunch MD Work Phone: [facility] Comment on above: Calculus of gallblad angelito and bile duct with acute on chronic cholecystitis without obstruction (Primary Dx); Umbilical hernia without obstruction and without gangrene Start: 08-26-2024 End: 08-26-2024 ambulatory CHANDAN BUNCH V Not Available Start: 08-23-2024 End: 08-24-2024 Evaluation and management of inpatient Parvez Vasquez MD Work Phone: [address] Comment on above: Biliary obstruction (CMS-HCC) (Primary Dx) Start: 08-22-2024 Evaluation and manag ement of inpatient PARVEZ VASQUEZ [facility] Start: 08-21-2024 End: 08-21-2024 Telephone encounter Florentino Gary MD Work Phone: [place] [facility] Comment on above: [facility] (Elevated LFT possible choledocholithiasis ,) Start: 08-21-2024 End: 08-22-2024 Evaluation and management of inpatient Faith Martinez Facility:[facility] Start: 08-19-2024 End: 08-19-2024 Telephone encounter Chandan Bunch MD Work Phone: [facility] Start: 08-12-2024 End: 08-12-2024 External Result Encounter Chandan Bunch MD Work Phone: [facility] Unsolicited Start: 08-12-2024 End: 08-12-2024 External Result Encounter Chandan Hong MD Work Phone: [facility] Unsolicited Start: 08-11-2024 End: 08-13-2024 Evaluation and management of inpatient Emil Itbaltazar Facility:[facility] Start: 10-27-2023 End: 10-27-2023 Patient encounter procedure MD Harry Mohan Work Phone: [facility] Work Phone: Start: 10-27-2023 End: 10-27-2023 ambulatory MD Harry Mohan Work Phone: [facility] Work Phone: Start: 10-27-2023 End: 10-27-2023 ambulatory MD Harry Mohan Work Phone: [facility] Work Phone: Start: 10-27-2023 End: 10-27-2023 Patient encounter procedure MD Harry Mohan Work Phone: [facility] Work Phone: Start: 10-11-2023 End: 10-11-2023 ambulatory ALYSA JIMÉNEZ Not Available Start: 09-06-2023 End: 09-06-2023 Admission to same day surgery center MD Harry Mohan Work Phone: [facility] [place] Start: 09-06-2023 End: 09-06-2023 ambulatory MD Harry Mohan Work Phone: [facility] Work Phone: Start: 08-28-2023 End: 08-28-2023 ambulatory Miguel Barba Other [facility] [employer] Other Start: 08-28-2023 Telephone encounter Jarocho Barba [facility] Start: 08-23-2023 End: 08-23-2023 ambulatory MD Harry Mohan Work Phone: [facility] Work Phone: Start: 08-23-2023 End: 08-23-2023 Patient encounter procedure MD Harry Mohan Work Phone: [facility] Work Phone: Start: 08-18-2023 End: 08-18-2023 ambulatory MD Harry Mohan Work Phone: [facility] Work Phone: Start: 08-18-2023 End: 08-18-2023 Patient encounter procedure MD Harry Mohan Work Phone: [facility] [place] Work Phone: Start: 08-09-2023 End: 08-09-2023 ambulatory MD Harry Mohan Work Phone: [facility] Work Phone: Start: 08-09-2023 End: 08-09-2023 Patient encounter procedure MD Harry Mohan Work Phone: [facility] [place] Work Phone: Start: 08-08-2023 End: 08-08-2023 Patient encounter procedure MD Harry Mohan Work Phone: [facility] Work Phone: Start: 07-26-2023 End: 07-26-2023 Emergency department patient visit MD Harry Mohan Work Phone: [facility] Work Phone: Start: 07-25-2023 End: 07-25-2023 ambulatory MD Harry Mohan Work Phone: [facility] Work Phone: Start: 07-25-2023 End: 07-25-2023 Patient encounter procedure MD Harry Mohan Work Phone: [facility] [place] Work Phone: Start: 07-24-2023 End: 07-24-2023 ambulatory MD Harry Mohan Work Phone: [facility] Work Phone: Start: 07-24-2023 End: 07-24-2023 Patient encounter procedure MD Harry Mohan Work Phone: [facility] [place] Work Phone: Start: 07-18-2023 End: 07-18-2023 Emergency department patient visit MD Harry Mohan Work Phone: [facility] Work Phone: Start: 12-03-2022 Encounter for genera l adult medical examination without abnormal findings DR HARRY MOHAN . [facility] Start: 11-25-2022 End: 11-26-[address] HARRY MOHAN . Facility:[facility] Start: 11-25-2022 End: 11-26-2022 Encounter for general adult medical examination without abnormal findings DR HARRY MOHAN . Facility:[facility] Start: 02-04-[address] HARRY MOHAN . Facili ty:[facility] Procedures Date Procedure Procedure Detail Performing Clinician Start: 08-24-2024 Comprehensive metabo lic panel Miles Yessenia Crawford DO Work Phone: Start: 08-23-2024 PULSE OXIMETRY, CONTINUOUS Charli Vera MD Work Phone: Start: 08-23-2024 Edg us exam surgical alter stom duodenum/jejunum Mau Kruse MD Work Phone: Start: 08-23-2024 ENDOSCOPY PROCEDURE NOT PERFORMED Mau Kruse MD Work Phone: Start: 08-23-2024 Prothrombin time Myrna Jordan [employer] Work Phone: Start: 08-23-2024 Comprehensive metabo lic panel Jeremiah Ford DO Work Phone: Start: 08-12-2024 Basic metabolic pane l calcium total Chandan Bunch MD Work Phone: Start: 08-12-2024 HEMOGRAM CBC WITHOUT DIFF ([facility]) Chandan Bunch MD Work Phone: Start: 08-12-2024 Hepatic function panel Chandan Bunch MD Work Phone: Start: 10-27-2023 Plain X-ray of left elbow MD Harry Mohan Work Phone: Start: 09-06-2023 Total hysterectomy v ia vaginal approach MD Harry Mohan Work Phone: Start: 08-18-2023 CT of chest without contrast MD Harry Mohan Work Phone: Start: 08-09-2023 Aerobic microbial culture MD Harry Mohan Work Phone: Start: 08-09-2023 Investigation of transfusion reaction MD Harry Mohan Work Phone: Start: 08-09-2023 Plain chest X-ray MD Melo Work Phone: Start: 07-26-2023 Plain chest X-ray MD Melo Work Phone: Start: 07-26-2023 Blood culture for ba cteria, including anaerobic screen MD Harry Mohan Work Phone: Start: 07-25-2023 Urine culture MD Aj Mohan Work Phone: Start: 07-24-2023 Plain chest X-ray MD Melo Work Phone: Start: 07-18-2023 Blood culture for ba cteria, including anaerobic screen MD Harry Mohan Work Phone: Start: 07-18-2023 SARS-CoV-2, Influenz a & RSV (PCR) MD Harry Mohan Work Phone: Start: 07-18-2023 Computed tomography of abdomen and pelvis with contrast MD Harry Mohan Work Phone: Start: 07-18-2023 CT angiography of thorax MD Harry Mohan Work Phone: Start: 07-18-2023 Plain chest X-ray MD Melo Work Phone: Start: 10-14-2019 Microscopic observat ion [Identifier] in Cervix by Cyto stain Chandan Hong MD Work Phone: Plan of Treatment Date Care Activity Detail Author Start: 2035 Zoster Vaccines (1 of 2) Zoste r Vaccines (1 of 2) [facility] Start: 06-30-2028 Screening for malign ant neoplasm of cervix [facility] Start: 08-26-2024 End: 08-26-2024 Patient encounter procedure 08/26/2024 9:45 AM EST Office Visit [facility] [address] [id number] Chandan Bunch MD [address] [facility] [address] [place] [address] [facility] Start: 05-12-2024 COVID-19 Vaccine ( season) COVID-19 Vaccine ( season) [facility] Start: 05-12-2024 Influenza vaccination Influenza Vacc ine (#1) [facility] Start: 09-06-2023 Hospital admission [facility] Start: 09-06-2023 [facility] Start: 2023 [facility] Start: 08-09-2023 Aerobic Culture Aerobic Culture [facility] Start: 08-09-2023 Microbial culture of sputum [facility] Start: 07-25-2023 Bacteria identified in Urine by Culture [facility] Start: 07-18-2023 Bacteria identified in Blood by Culture Blood Culture [facility] Start: 07-18-2023 Computed tomography of abdomen and pelvis with contrast CT abdomen pelvis w con [facility] Start: 07-18-2023 CT Abdomen and Pelvi s W contrast IV [facility] Start: 07-18-2023 CT angiography of thorax CT an martha chest PE protocol [facility] Start: 07-18-2023 CT Chest [facility] Start: 07-18-2023 Plain chest X-ray XR chest [facility]V* [facility] Start: 07-18-2023 XR Chest 2 Views [facility] Start: 10-14-2022 Screening for malign ant neoplasm of cervix Pap Smear [facility] Start: 2007 DTaP/Tdap/Td Vaccine s (1 - Tdap) DTaP/Tdap/Td Vaccines (1 - Tdap) [facility] Start: 2006 Screening for malign ant neoplasm of cervix [facility] Start: 2004 Hepatitis B Vaccines (1 of 3 - 19+ 3-dose series) Hepatitis B Vaccines (1 of 3 - 19+ 3-dose series) [facility] Start: 2003 Hepatitis C screening Hepatitis C [facility] Start: 1998 Varicella vaccination Varicell a Vaccines (1 of 2 - 13+ 2-dose series) [facility] Start: 1986 MMR Vaccines (1 of 1 - Standard series) MMR Vaccines (1 of 1 - Standard series) [facility] Start: 1985 HIV screening HIV Screening [facility] Start: 1985 Lipid panel Lipid Panel [facility] Start: 1985 Yearly Adult Physical Yearly Adult P hysical [facility] Bacteria identified in Unspecified specimen by Aerobe culture [facility] End: 09-06-2024 Comprehensive metabolic 2000 panel - Serum or Plasma Comprehensive Metabolic Panel Lab Routine Morning draw (Lab) for 2 Weeks starting 08/24/2024 until 09/06/2024, 1 completed [facility] Service Area Work Phone: Comment on above: Morning draw (Lab) f or 2 Weeks starting 08/24/2024 until 09/06/2024, 1 completed Electrocardiogram, 12-lead PRN ACS symptoms Electrocardiogram, 12-lead PRN ACS symptoms ECG Routine As needed until discontinued starting 08/23/2024 [facility] Service Area Work Phone: Comment on above: As needed until disc ontinued starting 08/23/2024 Legionella pneumophi la Ag [Presence] in Urine [facility] End: 08-26-2024 Magnesium [Mass/volume] in Serum or Plasma Magnesium Lab Routine Morning draw (Lab) for 3 Occurrences starting 08/24/2024 until 08/26/2024, 1 completed [facility] Work Phone: Comment on above: Morning draw (Lab) f or 3 Occurrences starting 08/24/2024 until 08/26/2024, 1 completed Patient Education [facility] Work Phone: Patient referral [facility] Work Phone: Surgical pathology study [facility] Service Area Work Phone: Comment on above: Release Upon Orderin g for 1 Occurrences starting 08/23/2024, 1 completed XR Elbow - left GE 3 Views [facility] Immunizations Immunization Date Immunization Notes Care Provider Fa [facility] 07-17-2021 COVID-19 (Moderna), Age 12+; Translations: [COVID-19 (Moderna), Age 12+] MD Harry Mohan Work Phone: [facility] 07-17-2021 influenza virus vaccine, unspecified formulation Chandan Hong MD Work Phone: [facility] 01-07-2021 COVID-19 (Moderna), Age 12+; Translations: [COVID-19 (Moderna), Age 12+] MD Harry Mohan Work Phone: [facility] 12-10-2020 COVID-19 (Moderna), Age 12+; Translations: [COVID-19 (Moderna), Age 12+] MD Harry Mohan Work Phone: [facility] Payers Date Payer Category Payer Self-pay [id number] 2020 [facility] [id number] 2020 [facility] Managed Care [facility] [id number] 1985 Unknown [id number] 1985 Unknown [id number] 1985 Unknown [id number] 1985 Unknown [id number] 1985 Unknown [id number] 1959 Self-pay [id number] 1959 Unknown [id number] Private Health Insurance [employer] [id number] Unknown [id number] Unknown [id number] Unknown [id number] Social History Date Type Detail Facility Start: 05-09-2023 End: 07-18-2023 Tobacco smoking status ILIS Never smoked tobacco (finding) [facility] Start: 1985 Sex Assigned At Female [facility] Start: 05-09-2023 End: 05-10-2023 Sex Assigned At [facility] [employer] Other Start: 05-09-2023 End: 08-23-2024 Tobacco use and exposure Smokeless tobacco non-user [facility] Start: 07-12-2024 Alcoholic beverage intake Ex-drinker (finding) [facility] Start: 05-09-2023 End: 05-10-2023 History of Social function [facility] How often to you hav e a drink containing alcohol? Monthly or less [facility] How many standard drinks containing alcohol do you have on a typical day? 1 or 2 [facility] How often do you hav e 6 or more drinks on 1 occasion? Never [facility] Start: 06-08-2023 Alcohol Comment caffeine intake: 1-2 cups per day, 1 cup of coffee [facility] Start: 1985 Sex assigned at Not on file [facility] Work Phone: Has the [employer] or [employer] company threatened to shut off services in your home in past 12Mo No [facility] Work Phone: How many standard drinks containing alcohol do you have on a typical day? Patient does not drink [facility] Work Phone: (I/We) worried alka er (my/our) food would run out before (I/we) got money to buy more. Never true [facility] Work Phone: Start: 08-13-2024 End: 08-23-2024 Exposure to SARS-CoV-2 (event) Not sure [facility] Work Phone: Goals Date Patient Goal Desired Activity /State Functional Status Date Assessment Result Facility 09-06-2023 Functional status Patient at Baseline [facility] Work Phone: Mental Status Date Assessment Result Facility 09-06-2023 Cognitive function Cognitive Sta tus Patient at Baseline [facility] Work Phone: Clinical Notes 08-19-2024 to 01-22-2025 Chandan Hong MD - 08/26/2024 9:45 AM Jamey White RN - 08/24/2024 1:10 PM Jamey White RN - 08/24/2024 1:10 PM Roz Luo RN - 08/23/2024 3:45 PM ESTDischardeng Instructions Note Date & Type Note Facility 01-22-2025 Note Attestation signed by Jose Astudillo MD at 01/22/2025 1:21 PM I personally saw this patient on the day of the encounter, performed the alexandre portion(s) of the service and participated in the management and confirm the resident/fellow???s documentation. Please note there may be additional personal documentation from me [facility] Gastroenterology New Patient Visit - History & Physical CHIEF COMPLAINT Chief Complaint Patient presents with common bile duct stricture Abdominal Pain RUQ HISTORY OF PRESENT ILLNESS: Maida Cherry is a 39 y.o. female with a past medical history of cholecystectomy on 08/12/2024 for symptomatic cholelithiasis who subsequently presented with persistent right upper quadrant pain and abnormal liver chemistries raising concern for post-cholecystectomy complications, including choledocholithiasis or biliary stricture, for which the patient was referred to the Gastroenterology clinic. The patient initially did well post-operatively but developed recurrent ???crippling??? right upper quadrant pain with nausea approximately one week later, prompting readmission to [facility]. Workup revealed an initial isolated transaminitis, followed by elevation in total bilirubin to 3.6 mg/dL and direct bilirubin 2.4 mg/dL, with alkaline phosphatase in the 200s and ALT 197. MRCP was unremarkable, but given clinical concern for retained stone or biliary stricture, she was transferred to [place] for advanced endoscopic evaluation. At our facility, EUS and EGD were performed on 08/23/2024. EGD revealed normal esophagus and duodenum with mild patchy erythema in the antrum; cold forceps biopsies were taken, which later confirmed chemical/reactive gastropathy and were negative for H. pylori. EUS showed normal liver parenchyma and biliary anatomy, no gallbladder visualized (post-cholecystectomy), normal-caliber pancreatic duct (2 mm head, 1 mm body/tail), and non-dilated bile duct (3-4 mm range) with no evidence of stones, strictures, sludge, or wall thickening ruling out mechanical obstruction. During hospitalization, her liver enzymes trended down with resolution of hyperbilirubinemia and symptoms. Despite normalization of labs and unremarkable imaging, she continues to report daily postprandial or fasting epigastric/RUQ pain with associated diarrhea (Barry 6 consistency), raising concern for post-cholecystectomy syndrome, possible functional biliary-type pain or sphincter of Oddi dysfunction, though the latter is less likely in the absence of bile duct dilation or persistent LFT abnormalities. PREVIOUS LABS/IMAGING/ENDOSCOPY: MRCP (prior to transfer): Unremarkable; no evidence of choledocholithiasis, biliary stricture, or ductal dilation. EGD (08/23/2024): Normal esophagus and duodenum; mild patchy erythema in the antrum with biopsies showing chemical/reactive gastropathy; H. pylori negative. EUS (08/23/2024): Normal liver parenchyma and biliary anatomy; no gallbladder visualized (post-cholecystectomy); common bile duct measured 3-4 mm without stones, sludge, strictures, or wall thickening; pancreatic duct within normal limits. HISTORY: Problem list: Patient Active Problem List Diagnosis Biliary obstruction (CMS/HCC) Calculus of gallbladder and bile duct with acute on chronic cholecystitis without obstruction Generalized abdominal pain Transaminitis Umbilical hernia without obstruction and without gangrene Past Medical History: Past Medical History: Diagnosis Date Adenomyosis Eczema IUD (intrauterine device) in place Leiomyoma Pelvic pain Perineal pain Pneumonia 07/2023 Past Surgical History: Past Surgical History: Procedure Laterality Date SECTION, CLASSIC x2 HYSTERECTOMY TONSILLECTOMY WISDOM TOOTH EXTRACTION FAMILY HISTORY: Family History Problem Relation Name Age of Onset Thyroid disease Mother Multiple sclerosis Brother SOCIAL HISTORY: Social History Tobacco Use Smoking status: Never Smokeless tobacco: Never Vaping Use Vaping status: Never Used Substance Use Topics Alcohol use: Yes Drug use: Yes Types: Marijuana Comment: edibles ALLERGIES: Sulfa (sulfonamide antibiotics) Current Medications: Current Outpatient Medications: acetaminophen-caffeine 500-65 mg tablet, Take 65 mg by mouth if needed (1 tab PO Q6H PRN - Mild Pain)., Disp: , Rfl: nortriptyline (Pamelor) 25 mg capsule, Take 1 capsule (25 mg) by mouth at bedtime., Disp: 30 capsule, Rfl: 2 hzdkqpkwvpwo-cathxubrld-dkpvbr (Zosyn in dextrose, iso-osm,) 3.375 gram/50 mL IVPB, Infuse 3.375 g into a venous catheter every 6 (six) hours., Disp: , Rfl: I reviewed and reconciled this patient's medication list today. The list included in this not (more content not included)... [facility] 08-26-2024 History of Present illness Narrative Images from the original note were not included. Patient is about 2 weeks status post a laparoscopic cholecystectomy. She has a follow up from the hospital. Pathology revealed chronic cholecystitis cholelithiasis. She also had an umbilical hernia repaired. A few days after the surgery, patient presented back to the hospital. She had right upper quadrant abdominal pain and some elevation in liver function tests. CT scan as well as MR CP showed no acute abnormalities such as common bile duct stones. Her bilirubin did elevated the patient was transferred to [facility]. Looking at the records, she did not have an ERCP performed but had endoscopic ultrasound. There was some gastritis. Gastric biopsies taken. No abnormality seen in pancreas or common bile duct. Patient's liver function tests did normalize the patient was discharged home. Since patient has been home, she states she has been eating. She denies vomiting. She is not having much pain. On examination, she is awake and alert and in no acute distress. Sclera nonicteric. Abdomen is soft, nondistended, nontender. Laparoscopic incisions are clean and dry without evidence of infection. 1. Calculus of gallbladder and bile duct with acute on chronic cholecystitis without obstruction 2. Umbilical hernia without obstruction and without gangrene The patient works as a hair assistant. She can resume her normal activity and working. She will be discharged from the office and continue to follow with her primary care physician. She is given a note to return to work today. documented in this encounter [facility] 08-24-2024 Nurse Note Pt discharged at 1230p. [facility] 08-24-2024 Nurse Note Pt discharged at 1230p. Patient returned via cart back to bed in NAD awake alert and oriented Patient to surgery via wheelchair in NAD Patient arrived from [facility] for GI consult and possible EUS/ERCP. Dr. Ford notified and admitting orders placed. Patient denying pain at this time. Call light within reach. documented in this encounter [facility] Work Phone: 08-24-2024 Plan of care note The patient's goals for the shift include The clinical goals for the shift include remain HDI Pt alert and oriented. Denies pain. Tolerating diet, no nausea. Ambulating to br ad surinder. Voiding no difficulty. Gi gave ok for discharge. Pt ambulated off unit with family. [facility] Work Phone: 08-24-2024 Miscellaneous Notes The patient's goals for the shift include The clinical goals for the shift include remain HDI Pt alert and oriented. Denies pain. Tolerating diet, no nausea. Ambulating to br ad surinder. Voiding no difficulty. Gi gave ok for discharge. Pt ambulated off unit with family. The patient's goals for the shift include surgery The clinical goals for the shift include Pain management Problem: Pain - Adult Goal: Verbalizes/displays adequate comfort level or baseline comfort level Outcome: Progressing Problem: Safety - Adult Goal: Free from fall injury Outcome: Progressing Problem: Discharge Planning Goal: Discharge to home or other facility with appropriate resources Outcome: Progressing Problem: Chronic Conditions and Co-morbidities Goal: Patient's chronic conditions and co-morbidity symptoms are monitored and maintained or improved Outcome: Progressing The patient's goals for the shift include The clinical goals for the shift include Pain management Patient admitted this shift for GI consultation for possible EUS/ERCP. Patient denied any pain/abdominal pain this shift. Patient denies N/V. Patient NPO this shift. IVF infusing as ordered. Patient up independent ambulating in room, voiding without difficulty. VSS. documented in this encounter [facility] Work Phone: 08-24-2024 Hospital Discharge instructions Matthew Johns MD - 08/24/2024 10:36 AM EST You've been treated for elevated liver numbers. You underwent an ERCP-no stones found, bile ducts were normal. Your liver numbers have been consistently improving. Please arrange for close follow up with your primary doctor. Thank you for allowing the [place] care team to participate in your care! documented in this encounter [facility] Work Phone: 08-23-2024 Nurse Note Patient returned via cart back to bed in NAD awake alert and oriented [facility] 08-23-2024 Note Table formatting fro m the original result was not included. This procedure was not performed. Procedure: ERCP [GI18] Cancel Information Procedure Not Performed Reason Procedure Not Performed Comments [facility] Work Phone: 08-23-2024 Note Table formatting fro m the original result was not included. This procedure was not performed. Procedure: ERCP [GI18] Cancel Information Procedure Not Performed Reason Procedure Not Performed Comments [facility] 08-23-2024 History of Present illness Narrative Maida Cherry is a 38 y.o. female on day 0 of admission presenting with Biliary obstruction ([facility]). Subjective Patient seen and examined at bedside this morning. Found resting comfortably in bed but no apparent distress. Abdominal pain is improved no complaints. Objective Last Recorded Vitals BP 122/78 (BP Location: Right arm, Patient Position: Sitting) Pulse 74 Temp 37.5 C (99.5 F) (Temporal) Resp 16 Wt 91.2 kg (201 lb 1 oz) SpO2 98% Intake/Output last 3 Shifts: Intake/Output Summary (Last 24 hours) at 08/23/2024 1445 Last data filed at 08/23/2024 0650 Gross per 24 hour Intake 560 ml Output -- Net 560 ml Admission Weight Weight: 91.2 kg (201 lb 1 oz) (08/23/24 0014) Daily Weight 08/23/24 : 91.2 kg (201 lb 1 oz) Physical Exam: General: Not in acute distress, alert HEENT: PERRLA, head intact and normocephalic Neck: Normal to inspection Lungs: Clear to auscultation, work of breathing within normal limit Cardiac: Regular rate and rhythm Abdomen: Soft nontender, positive bowel sounds : Exam deferred Skin: Intact Hematology: No petechia or excessive ecchymosis Musculoskeletal: Without significant trauma Neurological: Alert awake oriented, no focal deficit, cranial nerves grossly intact Psych: Appropriate mood and behavior Relevant Results Scheduled medications pantoprazole, 40 mg, oral, Daily before breakfast Or pantoprazole, 40 mg, intravenous, Daily before breakfast Continuous medications PRN medications PRN medications: acetaminophen OR acetaminophen OR acetaminophen, acetaminophen OR acetaminophen OR acetaminophen, melatonin, metoclopramide OR metoclopramide, morphine, morphine, ondansetron ODT OR ondansetron, polyethylene glycol Results for orders placed or performed during the hospital encounter of 08/23/24 (from the past 24 hours) CBC Result Value Ref Range WBC 8.4 4.4 - 11.3 x10*3/uL nRBC 0.0 0.0 - 0.0 /100 WBCs RBC 4.18 4.00 - 5.20 x10*6/uL Hemoglobin 12.5 12.0 - 16.0 g/dL Hematocrit 38.5 36.0 - 46.0 % MCV 92 80 - 100 fL MCH 29.9 26.0 - 34.0 pg MCHC 32.5 32.0 - 36.0 g/dL RDW 12.0 11.5 - 14.5 % Platelets 315 150 - 450 x10*3/uL Comprehensive metabolic panel Result Value Ref Range Glucose 84 74 - 99 mg/dL Sodium 138 136 - 145 mmol/L Potassium 3.8 3.5 - 5.3 mmol/L Chloride 105 98 - 107 mmol/L Bicarbonate 25 21 - 32 mmol/L Anion Gap 12 10 - 20 mmol/L Urea Nitrogen 11 6 - 23 mg/dL Creatinine 0.56 0.50 - 1.05 mg/dL eGFR >90 >60 mL/min/1.73m*2 Calcium 9.1 8.6 - 10.3 mg/dL Albumin 3.8 3.4 - 5.0 g/dL Alkaline Phosphatase 191 (H) 33 - 110 U/L Total Protein 6.2 (L) 6.4 - 8.2 g/dL AST 41 (H) 9 - 39 U/L Bilirubin, Total 0.6 0.0 - 1.2 mg/dL ALT 197 (H) 7 - 45 U/L Protime-INR Result Value Ref Range Protime 11.6 9.8 - 12.8 seconds INR 1.0 0.9 - 1.1 No results found. Assessment/Plan Maida Cherry is a 38 y.o. female on day 0 of admission presenting with Biliary obstruction (CMS-HCC). #Concern for choledocholithiasis/biliary obstruction 2/2 retained stone #S/p recent cholecystectomy #Transaminitis Plan: -Physical exam reveals soft abdomen, without tenderness -Patient endorses improvement in transaminitis based on her review of labs from outside facility -Will continue to trend LFTs with daily morning CMP -GI on consult with plan for EUS/ERCP, and recommendation appreciated -NPO pending procedure -Continue pain regimen with morphine 2 mg as needed for hours for moderate pain and 4 mg of morphine for severe pain every 4 hours Maintenance fluids: Normal saline 100 mL/h x 1 L DVT ppx: SCDs Diet: N.p.o. to resume regular after procedure Consults: Gastroenterology Telemetry: Not indicated CODE STATUS: Full Dispo: Admitted and transferred from other facility for GI intervention concern for retained stone status post elective cholecystectomy, likely requiring 1 additional midnight Assessment plan discussed with attending physician. This note is created using voice recognition software. All efforts are made to minimize errors, if there are errors there due to aerodynamics professor. Miles Crawford DO PGY3, internal medicine [facility] Cosigned by Matthew Johns MD at 08/23/2024 3:15 PM EST Associated attestation - Matthew Johns MD - 08/23/2024 3:15 PM EST I saw and evaluated the patient. I personally obtained the alexandre and critical portions of the history and physical exam or was physically present for alexandre and critical portions performed by the resident/fellow. I reviewed the resident/fellow's documentation and discussed the patient with the resident/fellow. I agree with the resident/fellow's medical decision making as documented in the note. No overnight events. Patient endorses abdominal pain has significantly improved since admission. Denies any further nausea. Denies chest pain, shortness of breath, headache, stool changes. Last bowel movement yesterday, nonbloody. Exam is stable. Abdomen is soft, nontender, surgical site from prior lap constance no evidence of erythema nor drainage. T. bili within normal limits, was 3.6 per chart review at outside hospital. No leukocytosis. GI evaluated patient and plan for EUS/ERCP today. 08/23/24922 Discharge Planning Living Arrangements Spouse/significant other Support Systems Spouse/significant other Type of Residence Private residence Home or Post Acute Services None Expected Discharge Disposition Home Does the patient need discharge transport arranged? No Met with patient at bedside. Transferred from [facility] ER for biliary obstruction. 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 PCP is Dr Mohan in [place]. Pt feels she is able to manage her health and understands her medications. Is able to drive and obtain meds. Pt plans to return home with no new discharge needs. Family will provide transport. documented in this encounter [facility] Work Phone: 08-23-2024 Nurse Note Patient to surgery via wheelchair in NAD [facility] Work Phone: 08-23-2024 Plan of care note The patient's goals for the shift include surgery The clinical goals for the shift include Pain management [facility] Work Phone: 08-23-2024 Consult note Associated Order (s): IP CONSULT TO GASTROENTEROLOGY Reason for consult Suspected bilary obstruction HPI Maida Cherry is a 38 y.o. female with PMH of cholecystectomy 08/12/24 presenting from [facility] with concern for choledocholithiasis v biliary stricture. Patient was doing fine for 1 week post cholecystectomy. 4 days ago while she was getting ready for work, she developed sudden onset crippling abdominal pain and nausea very similar to precholecystectomy. She had had coffee but had not eaten anything. She tried taking the hydrocodone she was prescribed after surgery with intermittent ibuprofen with little relief. At OSH, she initially was noted to have transaminitis with normal bilirubin. Bilirubin was then noted to increase to 3.6 with direct bili 2.4. Liver enzymes noting alk phos 191, ALT 197, AST 41, T. bili 0.6. MRCP with no acute findings though patient was later told by GI at OSH that there may be a stricture. She was transferred to [facility] for EUS +/-ERCP. she currently denies lightheadedness, CP, SOB, abdominal pain or nausea. PMH Denies PSH cholecystectomy Family No known GI malignancy Social No tobacco, alcohol or illicits Review of Systems ROS negative unless stated otherwise in HPI Objective BP 106/66 (BP Location: Right arm, Patient Position: Lying) Pulse 74 Temp 37.1 C (98.8 F) (Temporal) Resp 18 Ht 1.6 m (5' 3 ) Wt 91.2 kg (201 lb 1 oz) SpO2 98% BMI 35.62 kg/m Physical Exam Constitutional: Alert, pleasant and interactive, in NAD Eyes: PERRL, sclera clear, no conjunctival injection Skin: Warm and dry, no rash or ecchymosis ENMT: Mucous membranes moist, no lesions noted Resp: CTAB, even and unlabored CV: RRR, normal S1, S2, no m,r,g GI: +BS, soft, round, NT, no rebound tenderness or guarding, no palpable masses or organomegaly Extremities: Extremities warm, no edema, contusions, wounds or cyanosis Neuro: Alert and oriented x3 Psych: Appropriate mood and behavior Medications Scheduled medications pantoprazole, 40 mg, oral, Daily before breakfast Or pantoprazole, 40 mg, intravenous, Daily before breakfast Continuous medications sodium chloride 0.9%, 100 mL/hr, Last Rate: 100 mL/hr (08/23/24 0650) PRN medications PRN medications: acetaminophen OR acetaminophen OR acetaminophen, acetaminophen OR acetaminophen OR acetaminophen, melatonin, metoclopramide OR metoclopramide, morphine, morphine, ondansetron ODT OR ondansetron, polyethylene glycol Labs Lab Results Component Value Date WBC 8.4 08/23/2024 HGB 12.5 08/23/2024 HCT 38.5 08/23/2024 MCV 92 08/23/2024 PLT 315 08/23/2024 Lab Results Component Value Date GLUCOSE 84 08/23/2024 CALCIUM 9.1 08/23/2024 NA 138 08/23/2024 K 3.8 08/23/2024 CO2 25 08/23/2024 CL 105 08/23/2024 BUN 11 08/23/2024 CREATININE 0.56 08/23/2024 Lab Results Component Value Date ALT 197 (H) 08/23/2024 AST 41 (H) 08/23/2024 ALKPHOS 191 (H) 08/23/2024 BILITOT 0.6 08/23/2024 No results found for: IRON , TIBC , FERRITIN No results found for: INR , PROTIME Radiology N/A Assessment: Maida Cherry is a 38 y.o. female with PMH of cholecystectomy 1 week ago presenting from [facility] with concern for choledocholithiasis v biliary stricture. She suddenly developed abdominal pain and nausea. Liver enzymes and bilirubin initially elevated with no significant findings on MRI. Liver enzymes downtrending. # acute abd pain # transaminitis/ hyperbilirubinemia # recent cholecystectomy # c/f choledocholithiasis Plan: - continue supportive care - keep NPO for EUS/=/-ERCP - continue analgesics and antiemetics as needed - continue to trend liver enzymes daily - continue daily PPI Plan has been discussed with Dr. Cano. GI will continue to follow. Myrna Jordan APRN/DELMY [facility] Work Phone: 08-23-2024 Consult note Associated Order (s): IP CONSULT TO GASTROENTEROLOGY Reason for consult Suspected bilary obstruction HPI Maida Cherry is a 38 y.o. female with PMH of cholecystectomy 08/12/24 presenting from [facility] with concern for choledocholithiasis v biliary stricture. Patient was doing fine for 1 week post cholecystectomy. 4 days ago while she was getting ready for work, she developed sudden onset crippling abdominal pain and nausea very similar to precholecystectomy. She had had coffee but had not eaten anything. She tried taking the hydrocodone she was prescribed after surgery with intermittent ibuprofen with little relief. At OSH, she initially was noted to have transaminitis with normal bilirubin. Bilirubin was then noted to increase to 3.6 with direct bili 2.4. Liver enzymes noting alk phos 191, ALT 197, AST 41, T. bili 0.6. MRCP with no acute findings though patient was later told by GI at OSH that there may be a stricture. She was transferred to [facility] for EUS +/-ERCP. she currently denies lightheadedness, CP, SOB, abdominal pain or nausea. PMH Denies PSH cholecystectomy Family No known GI malignancy Social No tobacco, alcohol or illicits Review of Systems ROS negative unless stated otherwise in HPI Objective BP 106/66 (BP Location: Right arm, Patient Position: Lying) Pulse 74 Temp 37.1 C (98.8 F) (Temporal) Resp 18 Ht 1.6 m (5' 3 ) Wt 91.2 kg (201 lb 1 oz) SpO2 98% BMI 35.62 kg/m Physical Exam Constitutional: Alert, pleasant and interactive, in NAD Eyes: PERRL, sclera clear, no conjunctival injection Skin: Warm and dry, no rash or ecchymosis ENMT: Mucous membranes moist, no lesions noted Resp: CTAB, even and unlabored CV: RRR, normal S1, S2, no m,r,g GI: +BS, soft, round, NT, no rebound tenderness or guarding, no palpable masses or organomegaly Extremities: Extremities warm, no edema, contusions, wounds or cyanosis Neuro: Alert and oriented x3 Psych: Appropriate mood and behavior Medications Scheduled medications pantoprazole, 40 mg, oral, Daily before breakfast Or pantoprazole, 40 mg, intravenous, Daily before breakfast Continuous medications sodium chloride 0.9%, 100 mL/hr, Last Rate: 100 mL/hr (08/23/24 0650) PRN medications PRN medications: acetaminophen OR acetaminophen OR acetaminophen, acetaminophen OR acetaminophen OR acetaminophen, melatonin, metoclopramide OR metoclopramide, morphine, morphine, ondansetron ODT OR ondansetron, polyethylene glycol Labs Lab Results Component Value Date WBC 8.4 08/23/2024 HGB 12.5 08/23/2024 HCT 38.5 08/23/2024 MCV 92 08/23/2024 PLT 315 08/23/2024 Lab Results Component Value Date GLUCOSE 84 08/23/2024 CALCIUM 9.1 08/23/2024 NA 138 08/23/2024 K 3.8 08/23/2024 CO2 25 08/23/2024 CL 105 08/23/2024 BUN 11 08/23/2024 CREATININE 0.56 08/23/2024 Lab Results Component Value Date ALT 197 (H) 08/23/2024 AST 41 (H) 08/23/2024 ALKPHOS 191 (H) 08/23/2024 BILITOT 0.6 08/23/2024 No results found for: IRON , TIBC , FERRITIN No results found for: INR , PROTIME Radiology N/A Assessment: Maida Cherry is a 38 y.o. female with PMH of cholecystectomy 1 week ago presenting from [facility] with concern for choledocholithiasis v biliary stricture. She suddenly developed abdominal pain and nausea. Liver enzymes and bilirubin initially elevated with no significant findings on MRI. Liver enzymes downtrending. # acute abd pain # transaminitis/ hyperbilirubinemia # recent cholecystectomy # c/f choledocholithiasis Plan: - continue supportive care - keep NPO for EUS/=/-ERCP - continue analgesics and antiemetics as needed - continue to trend liver enzymes daily - continue daily PPI Plan has been discussed with Dr. Cano. GI will continue to follow. Myrna Jordan APRN/DELMY documented in this encounter [facility] Work Phone: 08-23-2024 Plan of care note Problem: Pain - Adult Goal: Verbalizes/displays adequate comfort level or baseline comfort level Outcome: Progressing Problem: Safety - Adult Goal: Free from fall injury Outcome: Progressing Problem: Discharge Planning Goal: Discharge to home or other facility with appropriate resources Outcome: Progressing Problem: Chronic Conditions and Co-morbidities Goal: Patient's chronic conditions and co-morbidity symptoms are monitored and maintained or improved Outcome: Progressing The patient's goals for the shift include The clinical goals for the shift include Pain management Patient admitted this shift for GI consultation for possible EUS/ERCP. Patient denied any pain/abdominal pain this shift. Patient denies N/V. Patient NPO this shift. IVF infusing as ordered. Patient up independent ambulating in room, voiding without difficulty. VSS. [facility] Work Phone: 08-23-2024 Nurse Note Patient arrived from [facility] ER for GI consult and possible EUS/ERCP. Dr. Ford notified and admitting orders placed. Patient denying pain at this time. Call light within reach. [facility] Work Phone: 08-23-2024 History and physical note History Of Present Illness Maida Cherry is a 38 y.o. female presenting to this facility in transfer from [facility] with concern for retained stone versus biliary stricture. Approximately a week prior patient underwent cholecystectomy and was discharged home. She presented back to that OSH with complaint of abdominal pain, was initially found to have transaminase elevation without elevated bilirubin, although this increased to Tbili 3.6 with Dbili 2.4, alkaline phosphatase in the 200 range; no leukocytosis. MRCP did not show acute findings, the GI team at the OSH was concerned for a retained stone versus stricture, OSH called for transfer, spoke with Dr. Kruse in advanced endoscopy. Patient was then transferred to this facility for consideration for EUS/ERCP. Past Medical History No past medical history on file. Surgical History No past surgical history on file. Social History She has no history on file for tobacco use, alcohol use, and drug use. Family History No family history on file. Allergies Sulfa (sulfonamide antibiotics) Review of Systems All other systems reviewed and are negative. Physical Exam Vitals reviewed. Constitutional: Appearance: Normal appearance. HENT: Head: Normocephalic and atraumatic. Nose: Nose normal. Mouth/Throat: Mouth: Mucous membranes are moist. Eyes: Extraocular Movements: Extraocular movements intact. Conjunctiva/sclera: Conjunctivae normal. Pupils: Pupils are equal, round, and reactive to light. Cardiovascular: Rate and Rhythm: Normal rate and regular rhythm. Pulses: Normal pulses. Heart sounds: Normal heart sounds. Pulmonary: Effort: Pulmonary effort is normal. Breath sounds: Normal breath sounds. Abdominal: General: Bowel sounds are normal. Palpations: Abdomen is soft. Musculoskeletal: General: Normal range of motion. Cervical back: Normal range of motion and neck supple. Skin: General: Skin is warm and dry. Neurological: General: No focal deficit present. Mental Status: She is alert. Mental status is at baseline. Psychiatric: Mood and Affect: Mood normal. Behavior: Behavior normal. Last Recorded Vitals Blood pressure 114/78, pulse 83, temperature 37.1 C (98.8 F), temperature source Temporal, resp. rate 18, height 1.6 m (5' 3 ), weight 91.2 kg (201 lb 1 oz), SpO2 95%. Relevant Results Scheduled medications pantoprazole, 40 mg, oral, Daily before breakfast Or pantoprazole, 40 mg, intravenous, Daily before breakfast Continuous medications sodium chloride 0.9%, 100 mL/hr, Last Rate: 100 mL/hr (08/23/24 0114) PRN medications PRN medications: acetaminophen OR acetaminophen OR acetaminophen, acetaminophen OR acetaminophen OR acetaminophen, melatonin, metoclopramide OR metoclopramide, morphine, morphine, ondansetron ODT OR ondansetron, polyethylene glycol No results found. No results found for this or any previous visit (from the past 24 hours). Assessment/Plan Assessment & Plan Biliary obstruction ([facility]) Transaminitis Generalized abdominal pain Patient presents to this facility in transfer after undergoing cholecystectomy approximately 1 week prior and subsequently developing abdominal pain, nausea, vomiting, and elevation in her liver function studies consistent with cholestasis. Concern for retained stone versus biliary stricture was the leading concern within the differential. MRCP obtained at outside facility was negative. Patient accepted to this facility for consideration of ERCP versus EUS per report. -Patient to be admitted to regular medical floor, no acute indication for telemetry at this time -She will be made n.p.o. after midnight but will be allowed p.o. medications, ice chips, sips of clear liquids with medications -Blood work to be obtained including CBC/CMP -Consult placed for GI service with tentative plans for procedural intervention on 08/23/2024 -Pain control at this time with IV agents. Will utilize morphine 4 mg versus 2 mg per pain level as reported -Will defer PT/OT assessment at this time Diet: N.p.o. as described above Fluids: Normal saline at 100 cc/h x 10 hours DVT prophylaxis: SCDs Telemetry: Not Indicated Home Medications: Pending I spent >75 minutes in the professional and overall care of this patient. Jeremiah Ford DO [facility] Work Phone: 08-23-2024 History and physical note History Of Present Illness Maida Cherry is a 38 y.o. female presenting to this facility in transfer from [facility] with concern for retained stone versus biliary stricture. Approximately a week prior patient underwent cholecystectomy and was discharged home. She presented back to that OSH with complaint of abdominal pain, was initially found to have transaminase elevation without elevated bilirubin, although this increased to Tbili 3.6 with Dbili 2.4, alkaline phosphatase in the 200 range; no leukocytosis. MRCP did not show acute findings, the GI team at the OSH was concerned for a retained stone versus stricture, OSH called for transfer, spoke with Dr. Kruse in advanced endoscopy. Patient was then transferred to this facility for consideration for EUS/ERCP. Past Medical History No past medical history on file. Surgical History No past surgical history on file. Social History She has no history on file for tobacco use, alcohol use, and drug use. Family History No family history on file. Allergies Sulfa (sulfonamide antibiotics) Review of Systems All other systems reviewed and are negative. Physical Exam Vitals reviewed. Constitutional: Appearance: Normal appearance. HENT: Head: Normocephalic and atraumatic. Nose: Nose normal. Mouth/Throat: Mouth: Mucous membranes are moist. Eyes: Extraocular Movements: Extraocular movements intact. Conjunctiva/sclera: Conjunctivae normal. Pupils: Pupils are equal, round, and reactive to light. Cardiovascular: Rate and Rhythm: Normal rate and regular rhythm. Pulses: Normal pulses. Heart sounds: Normal heart sounds. Pulmonary: Effort: Pulmonary effort is normal. Breath sounds: Normal breath sounds. Abdominal: General: Bowel sounds are normal. Palpations: Abdomen is soft. Musculoskeletal: General: Normal range of motion. Cervical back: Normal range of motion and neck supple. Skin: General: Skin is warm and dry. Neurological: General: No focal deficit present. Mental Status: She is alert. Mental status is at baseline. Psychiatric: Mood and Affect: Mood normal. Behavior: Behavior normal. Last Recorded Vitals Blood pressure 114/78, pulse 83, temperature 37.1 C (98.8 F), temperature source Temporal, resp. rate 18, height 1.6 m (5' 3 ), weight 91.2 kg (201 lb 1 oz), SpO2 95%. Relevant Results Scheduled medications pantoprazole, 40 mg, oral, Daily before breakfast Or pantoprazole, 40 mg, intravenous, Daily before breakfast Continuous medications sodium chloride 0.9%, 100 mL/hr, Last Rate: 100 mL/hr (08/23/24 0114) PRN medications PRN medications: acetaminophen OR acetaminophen OR acetaminophen, acetaminophen OR acetaminophen OR acetaminophen, melatonin, metoclopramide OR metoclopramide, morphine, morphine, ondansetron ODT OR ondansetron, polyethylene glycol No results found. No results found for this or any previous visit (from the past 24 hours). Assessment/Plan Assessment & Plan Biliary obstruction ([facility]) Transaminitis Generalized abdominal pain Patient presents to this facility in transfer after undergoing cholecystectomy approximately 1 week prior and subsequently developing abdominal pain, nausea, vomiting, and elevation in her liver function studies consistent with cholestasis. Concern for retained stone versus biliary stricture was the leading concern within the differential. MRCP obtained at outside facility was negative. Patient accepted to this facility for consideration of ERCP versus EUS per report. -Patient to be admitted to regular medical floor, no acute indication for telemetry at this time -She will be made n.p.o. after midnight but will be allowed p.o. medications, ice chips, sips of clear liquids with medications -Blood work to be obtained including CBC/CMP -Consult placed for GI service with tentative plans for procedural intervention on 08/23/2024 -Pain control at this time with IV agents. Will utilize morphine 4 mg versus 2 mg per pain level as reported -Will defer PT/OT assessment at this time Diet: N.p.o. as described above Fluids: Normal saline at 100 cc/h x 10 hours DVT prophylaxis: SCDs Telemetry: Not Indicated Home Medications: Pending I spent >75 minutes in the professional and overall care of this patient. Jeremiah Ford DO documented in this encounter [facility] Work Phone: 08-21-2024 Telephone encounter Note Maida Cherry is a 38 year old female Presenting from [facility], had lap constance 2 wks ago and was discharged on abx , pt. came back to the ER 2 days ago with abd. Pain and elevated LFT. MRCP was done and was negative , now LFT is worse in 300 to 400 , pt. Still complaining of severe abd. pain , her bili up to 3.6 and LFT elevated , lipase WNL. GI reviewed MRCP again and impression possible CBD stricture ? Or choledocholithiasis , recommends transfer to [facility] for GI consult and ERCP [facility] 08-21-2024 Miscellaneous Notes Maida Cherry is a 38 year old female Presenting from [facility], had lap constance 2 wks ago and was discharged on abx , pt. came back to the ER 2 days ago with abd. Pain and elevated LFT. MRCP was done and was negative , now LFT is worse in 300 to 400 , pt. Still complaining of severe abd. pain , her bili up to 3.6 and LFT elevated , lipase WNL. GI reviewed MRCP again and impression possible CBD stricture ? Or choledocholithiasis , recommends transfer to [facility] for GI consult and ERCP documented in this encounter [facility] 08-19-2024 Telephone encounter Note The patient called complaining of sudden severe abdominal pain, nausea, back pain, sweating. She compares it to a gallbladder attack. She is 1 week s/p gallbladder removal. I spoke with Dr Bunch who advised that the patient go to the ER. The patient understands this and plans to go to the ER [facility] 08-19-2024 Miscellaneous Notes The patient called complaining of sudden severe abdominal pain, nausea, back pain, sweating. She compares it to a gallbladder attack. She is 1 week s/p gallbladder removal. I spoke with Dr Bunch who advised that the patient go to the ER. The patient understands this and plans to go to the ER documented in this encounter [facility] Evaluation note No assessment inform ation available [facility] Work Phone: Evaluation note No Information [facility] [employer] Other Evaluation note Diagnosis Onset Date Effusion, left elbow acute [facility] Work Phone: Evaluation note* Diagnosis Biliary obstruction (CMS-HCC)- Primary Obstruction of bile duct Biliary obstruction (CMS-HCC) Obstruction of bile duct Transaminitis Nonspecific elevation of levels of transaminase or lactic acid dehydrogenase (LDH) Generalized abdominal pain Abdominal pain, generalized documented in this encounter [facility] Work Phone: Evaluation note* Diagnosis Calculus of gallbladder and bile duct with acute on chronic cholecystitis without obstruction- Primary Umbilical hernia without obstruction and without gangrene documented in this encounter [facility] HealthcareHistory general Narrative - Reported* Type Description Date Medical History cough Surgical History wisdom teeth Surgical History C section x 2 Surgical History tonsillectomy and adenoidectomy Hospitalization History as above [employer] Other Hospital Discharge instructions Additional Instructions Please be sure to follow-up with Dr. Mohan. Assuming that you are going to get better, you should have a repeat chest x-ray in about 6 weeks to make sure that everything is cleared up. We are happy to see you at any time if you have any significant problems or concerns. [facility] Work Phone: Hospital Discharge instructions Additional Instructions DISCHARGE INSTRUCTIONS FOR HYSTERECTOMY (TVH, LAVH, TLH) -During your time at home until your first office appointment we recommend that you assume the same type of activities that you have been doing while in the hospital. You may ride in the car unless otherwise specifically told not to. Unless specifically otherwise stated, generally you may drive the car when you feel strong enough to make emergency manuevers as needed. -You may walk up and down stairs. At first take one step at a time -- one step - stop, one step - stop, one step - stop. -You may do light housework, such as dusting, dishes, and cooking. -From your first office visit until the six week postoperative examination we recommend that you do not do any heavy lifting or straining, that you do not do any vacuuming, mopping, or sweeping. -We advise that you do not lift any heavy grocery bags from the cart to the car or from the car home. -We recommend that you do not do any yard work such as shoveling of snow, raking of leaves, cutting grass or gardening. -We recommend that you do not make beds or lift mattresses to change fitted sheets. -Light bleeding is normal for the first 4 weeks (i.e. changing panty liner 3 - 4 times a day.) Call me or go to the Emergency Room for heavy bleeding (soaking a maxipad every hour for 4 hours.) -Call the office or go to the Emergency Room if unable to reach me for fever, chills, worsening pain, persistent nausea/vomiting. -Call the office or go to the Emergency Room for shortness of breath, pain in your calfs or unusual swelling in your legs. -Showers are allowed until the vaginal drainage stops, then tub baths are generally acceptable unless otherwise specifically denied. -You will be advised at your first office visit when you may resume intercourse. This will be dependent upon the type of surgery performed. -We recommend that you use home remedies such as aspirin, Tylenol, Motrin for pain, Milk of Magnesia for laxative. If these preparations do not take care of your problem we want to be called and notified of your distress. -Please get prescriptions filled upon leaving the hospital and follow directions as outlined. Please note the refill limitations on the prescription. -If you have any specific questions not covered by these instructions please feel free to contact myself or one of the nurses who will answer your questions with my recommendations. -These instructions are intended to be a guideline for your postoperative care and recovery and are by no means intended to be totally complete. FOLLOW UP -[Please call the office at ([phone]) to make follow appointment before leaving the hospital]. -[2 Weeks] [ ][facility] Work Phone: Reason for visit Narrative* Auth/Cert (Routine) Specialty Diagnoses / Procedures Referred By Thalia lucas Referred To Contact Diagnoses Biliary obstruction ([facility]) [place] [address] [place] [address] Phone: tel: fax: [phone] [place] [phone] Phone: tel: Referral ID Status Reason Start Date Expiration Date Visits Re quested Visits Authorized [id number] 1 1 [facility] Work Phone: Summary Purpose Family History No Family History Records Found Relationship Condition Age at Onset Recorded Date/T karla brother Multiple sclerosis Unknown Relationship Condition Age at Onset Recorded Date/T karla brother Multiple sclerosis Unknown Not Specified Family history of thyroid disease Unknow n Advance Directives No Advanced Directives Records Found Advance Directive Response Recorded Date/ Time Advance Directives No August 12, 2018 2:48pm Date Activated Date Inactivated Comments 08/23/2024 12:34 AM Question Answer Comments Plan of Care: Code Status Discussion Not Compl eted Decision Maker: Provider Rationale: Patient condition does not warra nt discussion Chief Complaint and Reason for Visit Chief Complaint abd pain Chief Complaint abd pain J18.9 Chief Complaint abd pain J18.9 j18.9 Chief Complaint abd pain J18.9 j18.9 chest pain,has pneumonia J18.9 J21.9 Chief Complaint abd pain J18.9 j18.9 chest pain,has pneumonia J18.9 J21.9 j18.9 Chief Complaint abd pain J18.9 j18.9 chest pain,has pneumonia J18.9 J21.9 j18.9 Pelvic & Perineal Pain, Adenomyosis, Leiomyoma of Chief Complaint abd pain J18.9 j18.9 chest pain,has pneumonia J18.9 J21.9 j18.9 Pelvic & Perineal Pain, Adenomyosis, Leiomyoma of Pelvic & Perineal Pain, Adenomyosis, Leiomyoma of. Chief Complaint Referred For Abn Ct And Pneumonia J18.9 J21.9 j18.9 Pelvic & Perineal Pain, Adenomyosis, Leiomyoma of Pelvic & Perineal Pain, Adenomyosis, Leiomyoma of. left elbow pain Chief Complaint Referred For Abn Ct And Pneumonia J18.9 J21.9 j18.9 Pelvic & Perineal Pain, Adenomyosis, Leiomyoma of Pelvic & Perineal Pain, Adenomyosis, Leiomyoma of. left elbow pain m25.522 Reason for Visit Effusion, left elbow Additional Source Comments INFORMATION SOURCE (unrecogn ized section and content) DATE CREATED AUTHOR 11/18/2019 Orion Saucedo [facility] DATE CREATED AUTHOR AUTHOR'S ORGANIZ ATION 12/04/2022 [facility] DATE CREATED AUTHOR AUTHOR'S ORGANIZ ATION 2024 [facility] DATE CREATED AUTHOR AUTHOR'S ORGANIZ ATION 08/28/2024 [facility] EP[facility] DATE CREATED AUTHOR AUTHOR'S ORGANIZ ATION 09/05/2024 [facility] DATE CREATED AUTHOR AUTHOR'S ORGANIZ ATION 09/25/2024 [facility] DATE CREATED AUTHOR AUTHOR'S ORGANIZ ATION 01/23/2025 [facility] Care Teams (unrecognized sec tion and content) Team Status: Active Member Role Status Vincenzo Mohan MD Primary Care Provider Active Team Status: Inactive Member Role Status Vincenzo Mohan MD Primary Care Provider Active Jeevan Hagan Jr, MD Emergency Provider Active Team Status: Inactive Member Role Status Vincenzo Mohan MD Primary Care Provider, Attending Pr ovider Active Team Status: Inactive Member Role Status Vincenzo Mohan MD Primary Care Provider Active Jeremiah Nunez DO Emergency Provider Active Team Status: Inactive Member Role Status Vincenzo Mohan MD Primary Care Provider, Attending Pr ovider Active Miguel Barba MD Other Provider Active Team Status: Inactive Member Role Status Vincenzo Mohan MD Primary Care Provider Active Miguel Barba MD Attending Provider Active Team Status: Inactive Member Role Status Vincenzo Mohan MD Primary Care Provider Active Alysa Jiménez DO Attending Provider Active Team Status: Inactive Member Role Status Vincenzo Barba MD Attending Provider Active Start: August 08, 2023 End: August 08, 2023 Team Status: Inactive Member Role Status Vincenzo Mohan MD Primary Care Provide r, Attending Provider Active Start: August 09, 2023 End: August 09, 2023 Miguel Barba MD Other Provider Active Start: August 09, 2023 End: August 09, 2023 Team Status: Inactive Member Role Status Dates Harry Mohan MD Primary Care Provider Active Start: August 18, 2023 End: August 18, 2023 Miguel Barba MD Attending Provider Active Start: August 18, 2023 End: August 18, 2023 Team Status: Inactive Member Role Status Dates Harry Mohan MD Primary Care Provider Active Start: August 23, 2023 End: August 23, 2023 Alysa Jiménez DO Attending Provider Active Sta rt: August 23, 2023 End: August 23, 2023 Team Status: Inactive Member Role Status Dates Harry Mohan MD Primary Care Provider Active Start: September 06, 2023 End: September 06, 2023 Alysa Jiménez DO Attending Provider Active Sta rt: September 06, 2023 End: September 06, 2023 Team Status: Inactive Member Role Status Dates Harry Mohan MD Primary Care Provider Active Start: October 27, 2023 End: October 27, 2023 JAYCE Greenberg Attending Provider Active S tart: October 27, 2023 End: October 27, 2023 Team Status: Active Member Role Status Dates Harry Mohan MD Primary Care Provider Active Start: October 27, 2023 JAYCE Greenberg Attending Provider Active S tart: October 27, 2023 Station Supervisor Relationship Specialty Start Date End Date Harry Mohan MD [address] [place] [phone] PCP - General Family Medicine 05/10/23 Alysa Jiménez DO [address] [facility] [address] [place] [address] Referring Physician Obstetrics and Gynecology 05/30/23 Station Supervisor Relationship Specialty Start Date End Date Harry Mohan MD [address] [place] [phone] PCP - General Family Medicine 05/10/23 Alysa Jiménez DO [address] [place] [address] Referring Physician Obstetrics and Gynecology 05/30/23 Station Supervisor Relationship Specialty Start Date End Date Harry Mohan MD [address] [place] [phone] PCP - General Family Medicine 05/10/23 Alysa Jiménez DO [address] [place] [address] Referring Physician Obstetrics and Gynecology 05/30/23 Station Supervisor Relationship Specialty Start Date End Date Harry Mohan MD [address] [place] [phone] - General Family Medicine 05/10/23 Alysa Jiménez DO [address] [place] [address] Referring Physician Obstetrics and Gynecology 05/30/23 Goals (unrecognized section and content) Goals may be documented in a n alternate sectionGoals may be documented in an alternate sectionGoals may be documented in an alternate sectionGoals may be documented in an alternate sectionGoals may be documented in an alternate sectionGoals may be documented in an alternate sectionNo Information REASON FOR VISIT (unrecogniz ed section and content) Reason Comments Elevated LFT possibl e choledocholithiasis , Reason Comments Post-op 1st Hosp po Lap chol e, returned to hosp. On to be sent to [facility]. Currently feeling much better. Source Comments (unrecognize d section and content) In the event this informatio n is protected by the Federal Confidentiality of Alcohol and Drug Abuse Patient Records regulations: The Federal rules restrict any use of the information to criminally investigate or prosecute any alcohol or drug abuse patient.[facility] Scheduled Active and Recently Administ ered Medications (unrecognized section and content) Medication Order 08/22/2024 08/23/2024 08/24/2024 acetaminophen (Tylenol) tablet 975 mg 975 mg, oral, Once, On Mon08/23/24 at 1515, For 1 dose, Recovery (only), If ordered PRN for pain, nurse is permitted to administer this medication for higher pain scores based on patient preference? Yes 1514 (Due) lidocaine PF (Xylocaine) 10 mg/mL (1 %) injection 1 mg 1 mg (0.1 mL), subcutaneous, Once, On Mon08/23/24 at 1515, For 1 dose, Recovery (only), To be used for IV insertion ONLY 151 (Due) pantoprazole (ProtoNix) EC tablet 40 mg(Linked Group 1) 40 mg, oral, Daily before breakfast, First dose on Mon08/23/24 at 0700, Do not crush, chew, or split. 0611 (Given - Provider: Cathy Dean RN) 0601 (Given - Provider: Emory Lanza, JORGE) pantoprazole (ProtoNix) injection 40 mg(Linked Group 1) 40 mg, intravenous, Administer over 2 Minutes, Daily before breakfast, First dose on Mon08/23/24 at 0700, Give if unable to take by mouth. 0611 (See Alternative - Provider: Cathy Dean, JORGE) 0601 (See Alternative - Provider: Emory Lanza, RN) Continuous Medication Order 08/22/2024 08/23/2024 08/24/2024 lactated Ringer's infusion 100 mL/hr, intravenous, Continuous, Starting on Mon08/23/24 at 1515, For 1 day, Recovery (only) 1616 (New Bag - Provider: Palafox RN)1854 (Rate/Dose Verify - Provider: Delia Luo RN) sodium chloride 0.9% infusion () 100 mL/hr, intravenous, Continuous, Starting on Mon08/23/24 at 0100, For 10 hours 0114 (New Bag - Provider: Cathy Dean RN)0232 (Rate/Dose Verify - Provider: Cathy Dean RN)0650 (Rate/Dose Verify - Provider: Cathy Dean RN) PRN Medication Order 08/22/2024 08/23/2024 08/24/2024 acetaminophen (Tylenol) oral liquid 650 mg(Linked Group 2) 650 mg, nasogastric tube, Every 4 hours PRN, fever (temp greater than 38.0 C), greater than or equal to 38 C, Starting on Mon08/23/24 at 0032 acetaminophen (Tylenol) oral liquid 650 mg(Linked Group 3) 650 mg, oral, Every 4 hours PRN, pain mild (1-3), first line, Starting on Mon08/23/24 at 0032, Give oral liquid per feeding tube if present or if patient prefers oral liquid over tablets. 1615 (See Alternative - Provider: Delia Luo RN) acetaminophen (Tylenol) suppository 650 mg(Linked Group 2) 650 mg, rectal, Every 4 hours PRN, fever (temp greater than 38.0 C), greater than or equal to 38 C, Starting on Mon08/23/24 at 0032, If ordered PRN for pain, nurse is permitted to administer this medication for higher pain scores based on patient preference? Yes acetaminophen (Tylenol) suppository 650 mg(Linked Group 3) 650 mg, rectal, Every 4 hours PRN, pain mild (1-3), first line, Starting on Mon08/23/24 at 0032, Give rectally if unable to administer by mouth or feeding tube., If ordered PRN for pain, nurse is permitted to administer this medication for higher pain scores based on patient preference? Yes 1615 (See Alternative - Provider: Delia Luo RN) acetaminophen (Tylenol) tablet 650 mg(Linked Group 2) 650 mg, oral, Every 4 hours PRN, fever (temp greater than 38.0 C), greater than or equal to 38 C, Starting on Mon08/23/24 at 0032, If ordered PRN for pain, nurse is permitted to administer this medication for higher pain scores based on patient preference? Yes acetaminophen (Tylenol) tablet 650 mg(Linked Group 3) 650 mg, oral, Every 4 hours PRN, pain mild (1-3), first line, Starting on Mon08/23/24 at 0032, Administer tablet or oral liquid per patient preference., If ordered PRN for pain, nurse is permitted to administer this medication for higher pain scores based on patient preference? Yes 1615 (Given - Provider: Di Luo RN) albuterol 2.5 mg /3 mL (0.083 %) nebulizer solution 2.5 mg 2.5 mg, nebulization, Once as needed, wheezing, Starting on Mon08/23/24 at 1458, For 1 dose, Recovery (only) diphenhydrAMINE (BENADryl) injection 12.5 mg 12.5 mg, intravenous, Once as needed, itching, allergic reaction, Starting on Mon08/23/24 at 1458, For 1 dose, Recovery (only) fentaNYL PF (Sublimaze) injection 50 mcg 50 mcg, intravenous, Every 5 min PRN, pain moderate (4-6), first line, Starting on Mon08/23/24 at 1458, Recovery (only), Max total of 200 micrograms regardless of dose., If ordered PRN for pain, nurse is permitted to administer this medication for higher pain scores based on patient preference? Yes hydrALAZINE (Apresoline) injection 5 mg 5 mg, intravenous, Administer over 2 Minutes, Every 30 min PRN, systolic blood pressure greater than 180 mmHg and heart rate less than 60 BPM, Starting on Mon08/23/24 at 1458, For 2 doses, Recovery (only) HYDROmorphone (Dilaudid) injection 0.5 mg 0.5 mg, intravenous, Every 5 min PRN, pain severe (7-10), first line, Starting on Mon08/23/24 at 1458, Recovery (only), Max total of 4 mg regardless of dose. HYDROmorphone PF (Dilaudid) injection 0.2 mg 0.2 mg, intravenous, Every 5 min PRN, pain moderate (4-6), first line, Starting on Mon08/23/24 at 1458, Recovery (only), Max total of 4 mg regardless of dose. labetaloL (Normodyne,Trandate) injection 5 mg 5 mg, intravenous, Administer over 1 Minutes, Once as needed, systolic blood pressure greater than 180 mmHg, dystolic blood pressure greater than 100 mmHg and heart rate greater than 60 BPM, Starting on Mon08/23/24 at 1458, For 1 dose, Recovery (only) melatonin tablet 3 mg 3 mg, oral, Nightly PRN, sleep, Starting on Mon08/23/24 at 0032 metoclopramide (Reglan) injection 10 mg(Linked Group 4) 10 mg, intravenous, Every 6 hours PRN, nausea/vomiting, second line, Starting on Mon08/23/24 at 0032, Give IV if patient is unable to take orally. metoclopramide (Reglan) tablet 10 mg(Linked Group 4) 10 mg, oral, Every 6 hours PRN, nausea/vomiting, 2nd line, Starting on Mon08/23/24 at 0032, 2nd Line. If inadequate response within 60 minutes, proceed to next-line agent or contact provider if no further options ordered. morphine injection 2 mg 2 mg, intravenous, Every 4 hours PRN, pain moderate (4-6), first line, Starting on Mon08/23/24 at 0033 morphine injection 4 mg 4 mg, intravenous, Every 4 hours PRN, pain severe (7-10), first line, Starting on Mon08/23/24 at 0034 ondansetron (Zofran) injection 4 mg(Linked Group 5) 4 mg, intravenous, Every 8 hours PRN, nausea/vomiting, first line, Starting on Mon08/23/24 at 0032, 1st Line. Give IV if patient is unable to take orally. If inadequate response within 60 minutes, proceed to next-line agent for same PRN reason or contact provider if no further options ordered. When administering via IV Push, administer over 3-5 minutes. 1441 (Given - Provider: Kamron Gaffney [facility]) ondansetron (Zofran) injection 4 mg 4 mg, intravenous, Once as needed, nausea/vomiting, first line, Starting on Mon08/23/24 at 1458, For 1 dose, Recovery (only), When administering via IV Push, administer over 3-5 minutes. ondansetron ODT (Zofran-ODT) disintegrating tablet 4 mg(Linked Group 5) 4 mg, oral, Every 8 hours PRN, nausea/vomiting, first line, Starting on Mon08/23/24 at 0032, 1st Line. Patient should allow tablet to dissolve on tongue. Do not remove from blister pack until just before administering. If inadequate response within 60 minutes, proceed to next-line agent for same PRN reason or contact provider if no further options ordered. 1441 (See Alternative - Provider: Kamron Gaffney [facility]) oxyCODONE (Roxicodone) immediate release tablet 5 mg 5 mg, oral, Every 4 hours PRN, pain mild (1-3), first line, Starting on Mon08/23/24 at 1458, Recovery (only), When able to take oral medications., If ordered PRN for pain, nurse is permitted to administer this medication for higher pain scores based on patient preference? Yes oxyCODONE-acetaminophen (Percocet) 5-325 mg per tablet 1 tablet 1 tablet, oral, Every 4 hours PRN, pain moderate (4-6), second line, Starting on Mon08/23/24 at 1458, Recovery (only), When able to take oral medications., If ordered PRN for pain, nurse is permitted to administer this medication for higher pain scores based on patient preference? Yes oxygen (O2) therapy inhalation, Continuous PRN - O2/gases, other, Starting on Mon08/23/24 at 1458, Recovery (only), Device: Nasal Cannula, Rate in liters per minute: Other, Custom Value: 1-6 LPM, Keep O2 Sat Above: 92% oxygen (O2) therapy inhalation, Continuous PRN - O2/gases, other, Starting on Mon08/23/24 at 1458, Recovery (only), Device: Nasal Cannula, Rate in liters per minute: Other, Custom Value: 1-6 LPM, Keep O2 Sat Above: 92% 1502 (Start - Provider: Elyssa Scott RN)1515 (Stopped - Provider: River Scott RN) polyethylene glycol (Glycolax, Miralax) packet 17 g 17 g, oral, Daily PRN, constipation, Starting on Mon08/23/24 at 0034, Bowel Regimen - for prevention of constipation. promethazine (Phenergan) 6.25 mg in sodium chloride 0.9% 50 mL IV 6.25 mg, intravenous, Administer over 15 Minutes, Once as needed, Nausea/vomiting, second line, Starting on Mon08/23/24 at 1458, For 1 dose, Recovery (only) Linked Groups Order Group 1: pantoprazole (ProtoNix) EC tablet 40 mgJump to med 40 mg, oral, Daily before breakfast, First dose on Mon08/23/24 at 0700, Do not crush, chew, or split. Or pantoprazole (ProtoNix) injection 40 mgJump to med 40 mg, intravenous, Administer over 2 Minutes, Daily before breakfast, First dose on Mon08/23/24 at 0700, Give if unable to take by mouth. Group 2: acetaminophen (Tylenol) tablet 650 mgJump to med 650 mg, oral, Every 4 hours PRN, fever (temp greater than 38.0 C), greater than or equal to 38 C, Starting on Mon08/23/24 at 0032, If ordered PRN for pain, nurse is permitted to administer this medication for higher pain scores based on patient preference? Yes Or acetaminophen (Tylenol) oral liquid 650 mgJump to med 650 mg, nasogastric tube, Every 4 hours PRN, fever (temp greater than 38.0 C), greater than or equal to 38 C, Starting on Mon08/23/24 at 0032 Or acetaminophen (Tylenol) suppository 650 mgJump to med 650 mg, rectal, Every 4 hours PRN, fever (temp greater than 38.0 C), greater than or equal to 38 C, Starting on Mon08/23/24 at 0032, If ordered PRN for pain, nurse is permitted to administer this medication for higher pain scores based on patient preference? Yes Group 3: acetaminophen (Tylenol) tablet 650 mgJump to med 650 mg, oral, Every 4 hours PRN, pain mild (1-3), first line, Starting on Mon08/23/24 at 0032, Administer tablet or oral liquid per patient preference., If ordered PRN for pain, nurse is permitted to administer this medication for higher pain scores based on patient preference? Yes Or acetaminophen (Tylenol) oral liquid 650 mgJump to med 650 mg, oral, Every 4 hours PRN, pain mild (1-3), first line, Starting on Mon08/23/24 at 0032, Give oral liquid per feeding tube if present or if patient prefers oral liquid over tablets. Or acetaminophen (Tylenol) suppository 650 mgJump to med 650 mg, rectal, Every 4 hours PRN, pain mild (1-3), first line, Starting on Mon08/23/24 at 0032, Give rectally if unable to administer by mouth or feeding tube., If ordered PRN for pain, nurse is permitted to administer this medication for higher pain scores based on patient preference? Yes Group 4: metoclopramide (Reglan) tablet 10 mgJump to med 10 mg, oral, Every 6 hours PRN, nausea/vomiting, 2nd line, Starting on Mon08/23/24 at 0032, 2nd Line. If inadequate response within 60 minutes, proceed to next- line agent or contact provider if no further options ordered. Or metoclopramide (Reglan) injection 10 mgJump to med 10 mg, intravenous, Every 6 hours PRN, nausea/vomiting, second line, Starting on Mon08/23/24 at 0032, Give IV if patient is unable to take orally. Group 5: ondansetron ODT (Zofran-ODT) disintegrating tablet 4 mgJump to med 4 mg, oral, Every 8 hours PRN, nausea/vomiting, first line, Starting on Mon08/23/24 at 0032, 1st Line. Patient should allow tablet to dissolve on tongue. Do not remove from blister pack until just before administering. If inadequate response within 60 minutes, proceed to next-line agent for same PRN reason or contact provider if no further options ordered. Or ondansetron (Zofran) injection 4 mgJump to med 4 mg, intravenous, Every 8 hours PRN, nausea/vomiting, first line, Starting on Mon08/23/24 at 0032, 1st Line. Give IV if patient is unable to take orally. If inadequate response within 60 minutes, proceed to next-line agent for same PRN reason or contact provider if no further options ordered. When administering via IV Push, administer over 3-5 minutes. FOR RECORDS PERTAINING TO PATIENTS WHO ARE OR HAVE BEEN ENROLLED IN A CHEMICAL DEPENDENCY/SUBSTANCEABUSE PROGRAM, SOME INFORMATION MAY BE OMITTED. This clinical summary was aggregated from multiple sources. Caution should be exercised in using it in the provision of clinical care. This summary normalizes information from multiple sources, and as a consequence, information in this document may materially change the coding, format and clinical context of patient data. In addition, data may be omitted in some cases. CLINICAL DECISIONS SHOULD BE BASED ON THE PRIMARY CLINICAL RECORDS. [facility] [employer] [facility]. provides no warranty or guarantee of the accuracy or completeness of information in this document.
[2025-04-09 07:49] LABS: INR 0.96; Prothrombin Time 10.2 sec (9.0-11.6)
[2025-04-09 07:52] LABS: Alanine Aminotransferase 32 U/L (14-59); Albumin Globulin Ratio 1.1; Albumin Level 4.1 g/dL (3.4-5.0); Alkaline Phosphatase 62 U/L (46-116); Aspartate Amino Transferase 21 U/L (15-37); Globulin 3.7 g/dL; Total Protein 7.8 g/dL (6.4-8.2)
== END 2025-04-09 07:16 | disposition home or self-care (01) ==
LOC: LAB 07:18
PROVIDERS: PCP Family Medicine
DX: K83.1 Obstruction of bile duct (principal); R10.13 Epigastric pain; R79.89 Other specified abnormal findings of blood chemistry
CPT/HCPCS: 36415; 80076; 85610